=== PATIENT | male | born 1960 | race Caucasian/White ===

== ENCOUNTER 2020-08-25 08:36 | Outpatient (REF) | payer OTHER, SELFPAY ==
--- NOTE | 2020-08-25 08:45 | US_ITS ---
EXAMINATION: US SCROTUM CLINICAL INFORMATION: Left testicular pain. COMPARISON: Scrotal ultrasound 06/12/2019. TECHNIQUE: A sonogram of the scrotum was performed assessing deal-scale appearance and color Doppler flow. Spectral Doppler analysis of the arterial and venous flow were performed in the testes bilaterally. FINDINGS: RIGHT: Right testicle measures 2.8 x 2.6 x 3.4 cm, volume 17.7 mL. There is anechoic right testicular cyst measuring 0.4 x 0.5 x 0.4 cm. No additional cyst seen. No solid mass. A few scattered echogenic calcification seen in both testes. Spectral Doppler analysis of the arterial and venous flow is normal in the right testis. Right epididymal head is normal in size. There is anechoic epididymal cyst measuring 0.7 x 0.3 x 0.6 cm. No right hydrocele or varicocele is seen. Right epididymal Doppler flow is normal. LEFT: Left testicle measures 4.3 x 2.2 x 2.9 cm, volume 14.3 mL. There are a few scattered echogenic calcifications. No focal testicular parenchymal lesions are visualized. Spectral Doppler analysis of the arterial and venous flow is normal in the left testis. Left epididymal head is normal in size. No left hydrocele or varicocele is seen. Left epididymal Doppler flow is normal. US/US scrotum doppler IMPRESSION: A few scattered echogenic calcification both testes. There is right testicular and right epididymal cysts. The left testes and left epididymis appears normal. There is normal arterial and venous flow seen to both testes on Doppler ultrasound.
== END 2020-08-25 08:37 | disposition home or self-care (01) ==
LOC: HO.HMGCX 08:36
PROVIDERS: Visit Provider Surgery
DX: N50.812 Left testicular pain (principal)
CPT/HCPCS: 93975

== ENCOUNTER 2020-08-30 14:04 | Outpatient (REF) | payer OTHER, SELFPAY | END 2020-08-30 14:05 | disposition home or self-care (01) | LOC: HO.HMGCLDS 14:04 | PROVIDERS: PCP Nurse Practitioner Family; Visit Provider Urology | DX: N39.0 Urinary tract infection, site not specified (principal) | CPT/HCPCS: 87086 ==

== ENCOUNTER 2020-11-23 06:18 | Outpatient (REF) | payer OTHER, SELFPAY ==
[2020-11-23 11:23] LABS: MANUAL DIFF FLAG NO
[2020-11-23 11:29] LABS: Glucose Urine UA NEG (NEG); Leukocyte Esterase Urine NEG (NEG); Nitrite Urine NEG (NEG); Specific Gravity - Urine 1.025 (1.005-1.025); Urine Blood NEG (NEG); Urine Ketones NEG (NEG); Urine Protein NEG (NEG-TRACE)
[2020-11-23 11:30] LABS: Appearance Urine CLEAR; Color Urine YELLOW
[2020-11-23 11:34] LABS: Basophils Percent Auto 0.5 % (0-2); Eosinophils Absolute Auto 0.1 X10*3/uL (0.0-0.4); Hematocrit 46.3 % (42-52); Hemoglobin 15.8 g/dl (14.0-18.0); Imm Gran Abs Auto 0.02 X10*3/uL (0.00-0.03); Imm Gran Pct Auto 0.3 % (0.0-0.4); Lymphocytes Absolute Auto 2.3 X10*3/uL (1.2-4.9); Lymphocytes Percent Auto 39.1 % (20-40); Mean Corpuscular HGB Conc 34.1 g/dl (31.0-36.0); Mean Corpuscular Hemoglobin 33.3 pg (27.0-33.0); Mean Corpuscular Volume 97.7 fL (80-98); Mean Platelet Volume 9.1 fL (9.4-12.4); Monocytes Absolute Auto 0.6 X10*3/uL (0.1-1.2); Monocytes Percent Auto 10.7 % (2-11); Neutrophils Absolute Auto 2.9 X10*3/uL (2.0-8.3); Neutrophils Percent Auto 48.4 % (45-73); Platelet Count 295 X10*3/uL (160-400); Red Blood Count 4.74 X10*6/uL (4.60-5.80); Red Cell Distribution Width 12.6 % (11.0-16.0)
[2020-11-23 12:04] LABS: RBC Urine 0 /HPF (0); WBC Urine 0 /HPF (0-4)
[2020-11-23 12:17] LABS: Vitamin B12 316 pg/mL (200-900)
[2020-11-23 14:18] LABS: Alanine Aminotransferase 38 U/L (0-40); Albumin Level 4.3 g/dL (3.5-5.0); Alkaline Phosphatase 71 U/L (39-117); Anion Gap 13 (12-20); Aspartate Amino Transferase 20 U/L (5-37); Bilirubin Total 0.8 mg/dL (0.0-1.0); Blood Urea Nitrogen 22 mg/dL (9-16); Calcium 8.9 mg/dL (8.4-10.2); Carbon Dioxide 27 mmol/L (22-29); Chloride 105 mmol/L (96-108); Estimated Glomerular Filt Rate > 60; Glucose Fasting 113 mg/dL (60-99); Potassium 4.1 mmol/l (3.3-5.1); Sodium 141 mmol/L (135-145); Total Protein 6.3 g/dL (6.5-8.0)
[2020-11-23 14:38] LABS: Ferritin 873 ng/mL (20-250); Prostate Specific Antigen 0.76 ng/mL (<0.05-4.0); TSH reflex Free T4 2.54 mIU/mL (0.32-4.0)
[2020-11-24 08:54] LABS: SARS COV2 IgG Positive (Negative)
[2020-12-01 15:12] LABS: Testosterone, Free 91.8 pg/mL (35.0-155.0); Testosterone, Total 608 ng/dL (250-1100)
== END 2020-11-23 06:19 | disposition home or self-care (01) ==
LOC: HO.HMGCLDS 06:18
PROVIDERS: PCP Nurse Practitioner Family; Visit Provider Nurse Practitioner Family
DX: R53.83 Other fatigue (principal); R10.30 Lower abdominal pain, unspecified; K40.90 Unilateral inguinal hernia, without obstruction or gangrene, not specified as recurrent; N41.9 Inflammatory disease of prostate, unspecified; I10 Essential (primary) hypertension; E78.1 Pure hyperglyceridemia; Z20.822 Contact with and (suspected) exposure to COVID-19; Z91.030 Bee allergy status; Z88.2 Allergy status to sulfonamides; Z88.8 Allergy status to other drugs, medicaments and biological substances; Z91.018 Allergy to other foods; Z87.891 Personal history of nicotine dependence
CPT/HCPCS: 36415; 80053; 81001; 82607; 82728; 84153; 84402; 84403; 84443; 85025; 86769

== ENCOUNTER 2020-11-24 12:43 | Outpatient (REF) | payer OTHER, SELFPAY ==
--- NOTE | 2020-11-24 12:51 | XR_ITS ---
EXAMINATION: XR CHEST CLINICAL INFORMATION: R07.89 - Other chest pain COMPARISON: Chest radiographs 03/20/2017, 02/10/2015 TECHNIQUE: Frontal and lateral views of the chest are obtained. FINDINGS: There is linear scar versus disc atelectasis left base. Similar findings suggested chest radiographs 2014. Lungs otherwise clear. There is no pneumothorax, pleural reaction, airspace consolidation, or effusion. The heart is normal in size. The hilar and mediastinal contours and bony structures are unremarkable. XR/XR chest 2V IMPRESSION: Probable scar left base. No pneumothorax, infiltrate, or or pleural reaction.
--- NOTE | 2020-11-24 13:46 | US_ITS ---
EXAMINATION: US CHEST CLINICAL INFORMATION: Area of palpable concern noted by patient just inferior medial to axilla left chest. COMPARISON: Chest radiographs 11/24/2020, CT chest noncontrast 04/08/2018 TECHNIQUE: Linear ultrasound left chest soft tissues is targeted to the area of clinical concern inferior medial to left axilla. Grayscale imaging and color Doppler are performed. FINDINGS: There is no cystic or solid mass. There is no lymphadenopathy. No skin thickening or edema tracking in soft tissue planes. US/US chest IMPRESSION: 1. No mass, adenopathy, or inflammatory changes demonstrated by ultrasound. 2. If there is still clinical concern for palpable abnormality, further assessment may be considered with CT or MRI.
[2020-11-24 16:52] LABS: D Dimer < 200 NG/ML
[2020-11-25 13:02] LABS: Lyme Abs Screen <0.90 index
== END 2020-11-24 12:44 | disposition home or self-care (01) ==
LOC: HO.HMGCX 12:43
PROVIDERS: PCP Nurse Practitioner Family; Visit Provider Nurse Practitioner Family
DX: R07.89 Other chest pain (principal); R79.89 Other specified abnormal findings of blood chemistry; R22.2 Localized swelling, mass and lump, trunk
CPT/HCPCS: 36415; 71046; 76604; 81256; 85379; 86618

== ENCOUNTER 2020-11-29 11:04 | Outpatient (REF) | payer OTHER, SELFPAY ==
[2020-11-29 14:00] LABS: MANUAL DIFF FLAG NO
[2020-11-29 14:12] LABS: Basophils Percent Auto 0.5 % (0-2); Eosinophils Absolute Auto 0.1 X10*3/uL (0.0-0.4); Eosinophils Percent Auto 0.9 % (0-4); Hematocrit 47.9 % (42-52); Hemoglobin 16.2 g/dl (14.0-18.0); Imm Gran Abs Auto 0.01 X10*3/uL (0.00-0.03); Imm Gran Pct Auto 0.2 % (0.0-0.4); Lymphocytes Percent Auto 34.6 % (20-40); Mean Corpuscular HGB Conc 33.8 g/dl (31.0-36.0); Mean Corpuscular Hemoglobin 33.1 pg (27.0-33.0); Monocytes Absolute Auto 0.6 X10*3/uL (0.1-1.2); Neutrophils Absolute Auto 3.1 X10*3/uL (2.0-8.3); Neutrophils Percent Auto 53.8 % (45-73); Platelet Count 311 X10*3/uL (160-400); Red Blood Count 4.89 X10*6/uL (4.60-5.80); Red Cell Distribution Width 12.6 % (11.0-16.0); White Blood Count 5.7 X10*3/uL (4.8-10.8)
[2020-11-29 14:22] LABS: Iron 273 mcg/dL (45-160); Percent Iron Saturation 90 % (15-50); Total Iron Binding Capacity 303 mcg/dL (228-428); Unsaturated Iron Binding 30 ug/dL
[2020-11-29 14:45] LABS: Ferritin 1188 ng/mL (20-250)
== END 2020-11-29 11:05 | disposition home or self-care (01) ==
LOC: HO.HMGCLDS 11:04
PROVIDERS: PCP Nurse Practitioner Family; Referring Provider Internal Medicine; Visit Provider Nurse Practitioner Family
DX: R79.89 Other specified abnormal findings of blood chemistry (principal); Z20.822 Contact with and (suspected) exposure to COVID-19
CPT/HCPCS: 36415; 82728; 83540; 85025; U0003

== ENCOUNTER 2020-12-06 08:34 | Outpatient (REF) | payer OTHER, SELFPAY ==
--- NOTE | 2020-12-06 08:45 | US_ITS ---
EXAMINATION: US SCROTUM CLINICAL INFORMATION: Scrotal pain. COMPARISON: Ultrasound scrotum 08/25/2020 and 06/12/2019. TECHNIQUE: A sonogram of the scrotum was performed assessing deal-scale appearance and color Doppler flow. Spectral Doppler analysis of the arterial and venous flow were performed in the testes bilaterally. FINDINGS: RIGHT: Right testicle measures 4.3 x 2.5 x 3.2 cm, volume 18.0 mL. A simple cyst is incidentally noted in the upper testicle measuring 5 x 4 x 5 mm. No solid mass is seen. There are macrocalcifications incidentally noted. Spectral Doppler analysis of the arterial and venous flow is normal in the right testis. Right epididymal head is normal in size. A 4 x 7 x 7 mm right epididymal head cyst versus spermatocele is seen. No right varicocele is seen. Right epididymal Doppler flow is normal. There is a small right hydrocele. LEFT: Left testicle measures 4.7 x 2.3 x 3.3 cm, volume 18.7 mL. There are a few scattered microliths. Spectral Doppler analysis of the arterial and venous flow is normal in the left testis. Left epididymal head is normal in size. No left hydrocele or varicocele is seen. Left epididymal Doppler flow is normal. US/US scrotum IMPRESSION: 1. There is a small right hydrocele. 2. A small simple right testicular cyst is of incidental note. No testicular solid mass or torsion is seen bilaterally. 3. There is a 7 mm in maximal diameter right epididymal head cyst versus spermatocele.
== END 2020-12-06 08:35 | disposition home or self-care (01) ==
LOC: HO.HMGCX 08:34
PROVIDERS: PCP Nurse Practitioner Family; Visit Provider Surgery
DX: N50.82 Scrotal pain (principal)
CPT/HCPCS: 76870

== ENCOUNTER 2020-12-12 07:45 | Outpatient (REF) | payer OTHER, SELFPAY ==
--- NOTE | ~2020-12-12 | CT_ITS ---
EXAMINATION: CT ABDOMEN AND PELVIS WITHOUT CONTRAST CLINICAL INFORMATION: Unilateral inguinal hernia. COMPARISON: Previous CT of the abdomen and pelvis November 2019. TECHNIQUE: Axial images through the abdomen and pelvis without oral or IV contrast. Sagittal and coronal reconstructions on the technologist workstation were performed. Patient dose 532 mGy-cm. FINDINGS: The liver is slightly high in attenuation questionable for liver deposition disease, increased iron stores related to transfusion/hemosiderosis, hemachromatosis or copper deposition/[place] disease. There is a 5 mm low-attenuation lesion in the peripheral medial segment of the left lobe of the liver axial image 19 series 3. This is stable from previous contrast-enhanced exam and probably represents a cyst. The gallbladder is unremarkable. There is no biliary duct dilatation. The spleen is unremarkable. The pancreas is unremarkable. The adrenal glands are unremarkable. There is mild right hydronephrosis. The right ureter does not appear dilated. No stone is seen. There appears to be a crossing vessel, from a prehilar branching pattern of the right renal artery with the right lower renal artery. Appearance is suggestive of left UPJ obstruction. This is similar to previous exam. There are left renal cysts. The kidneys are otherwise unremarkable. The bladder does not appear distended. There is question of mild diffuse bladder wall thickening. The prostate gland is slightly enlarged measuring 3.6 x 4.3 cm in AP and transverse dimension. There is diverticulosis of the colon. Small and large bowel is otherwise unremarkable. The appendix is unremarkable. There is a left inguinal hernia containing fat and small amount of fluid. This is similar to November 2019 exam. There is evidence of mild atherosclerotic disease. There are degenerative changes of the spine and joints, left greater than right. CT/CT abdomen pelvis wo con IMPRESSION: Left inguinal hernia containing fat and fluid. This is similar to November 2019 exam. High attenuation liver questionable for deposition disease. Stable probable small liver cyst. 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 Stable small left renal cysts. Question mild diffuse bladder wall thickening. Slightly enlarged prostate gland. Diverticulosis of the colon. EXAMINATION: Chest CT with IV contras. CLINICAL INFORMATION: Chest pain. COMPARISON: Previous chest x-ray, most recent 11/24/2020 and chest ultrasound from the same day TECHNIQUE: Axial images through the chest following 65 mL Omnipaque 350 intravenous contrast. Sagittal and coronal reconstructions on the technologist workstation were performed. Patient dose 532 mGy-cm. FINDINGS: There is scarring or subsegmental atelectasis at the lung bases, left greater than right. The lungs are otherwise clear. The visualized thyroid gland is unremarkable. Vascular structures are unremarkable. The heart is upper normal in size. There is no pericardial effusion. The thoracic aorta is normal in caliber. There are no enlarged hilar or mediastinal lymph nodes. There is no pleural effusion or pleural thickening. There is a fatty lesion in the right infraspinatus muscle, probably representing a small lipoma. No other chest wall mass. No enlarged axillary lymph nodes are seen. There are degenerative changes of the spine and left shoulder. IMPRESSION: Small infraspinatus muscle lipoma. Otherwise unremarkable exam.
[2020-12-12] MEDS: iohexoL 350 MG/ML 100 ML INFUS..BTL IV (09:18)
== END 2020-12-12 07:46 | disposition home or self-care (01) ==
LOC: HO.CT 07:45
PROVIDERS: PCP Nurse Practitioner Family; Visit Provider Surgery
DX: R07.89 Other chest pain (principal); K40.90 Unilateral inguinal hernia, without obstruction or gangrene, not specified as recurrent
CPT/HCPCS: 71260; 74176; Q9967

== ENCOUNTER → 2020-12-14 14:47 | Outpatient (BNVA) | payer OTHER, SELFPAY | PROVIDERS: PCP Nurse Practitioner Family; Visit Provider Surgery ==

== ENCOUNTER 2020-12-29 14:22 | Outpatient (REF) | payer OTHER, SELFPAY ==
[2020-12-30 03:46] LABS: SARS COV2 IgG Positive (Negative)
== END 2020-12-29 14:23 | disposition home or self-care (01) ==
LOC: HO.HMGCLDS 14:22
PROVIDERS: PCP Nurse Practitioner Family; Visit Provider Nurse Practitioner Family
DX: M79.10 Myalgia, unspecified site (principal); R79.89 Other specified abnormal findings of blood chemistry; R53.83 Other fatigue; Z20.822 Contact with and (suspected) exposure to COVID-19
CPT/HCPCS: 36415; 86769; U0003; U0005

== ENCOUNTER → 2020-12-30 10:49 | Outpatient (BNV) | payer OTHER, SELFPAY | PROVIDERS: PCP Nurse Practitioner Family; Referring Provider Nurse Practitioner Family; Visit Provider Internal Medicine Medical Oncology | DX: R79.89 Other specified abnormal findings of blood chemistry (principal) | CPT/HCPCS: 99204; 99213; 99214 ==

== ENCOUNTER → 2021-01-06 08:45 | Outpatient (REF) | payer OTHER, SELFPAY ==
--- NOTE | 2021-01-06 08:49 | CA_ITS ---
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 The visually estimated ejection fraction is between 60-65%. - No obvious valvular pathology seen on this study. Findings Left Ventricle Normal left ventricular cavity size. There is moderately increased left ventricular wall thickness. The left ventricular systolic function is normal. The visually estimated ejection fraction is between 60-65%. There is no evidence of regional wall motion abnormalities. Evidence suggests grade I (mild) diastolic dysfunction. Right Ventricle Normal right ventricular cavity size and systolic function. Atria The left atrium is normal in size. The right atrium is normal in size. There is a prominent eustachian valve. (normal variant). Aortic Valve There is a normal trileaflet aortic valve. There is no aortic valve stenosis. There is no aortic valve regurgitation. Mitral Valve The mitral valve appears normal. There is trace mitral valve regurgitation. There is no mitral valve stenosis. Pulmonic Valve The pulmonic valve was not well visualized. Tricuspid Valve Normal tricuspid valve structure. There is mild tricuspid valve regurgitation. The pulmonary artery systolic pressure is normal. Great Vessels The aortic annulus, sinuses of valsalva, and asc aorta are normal in size. Venous The inferior vena cava is normal in size and collapses greater than 50% with inspiration. Pericardium/Pleural There is no evidence of pericardial effusion. Prior Study Comparison No prior study available for comparison. Recommendations, Care & Conclusions No obvious valvular pathology seen on this study. Measurements 2D Linear Measurements IVSd: 1.34 0.6-0.9/0.6-1.0 cm LVIDd: 4.18 3.9-5.3/4.2-5.9 cm LVIDd Index: 2.26 2.4-3.2/2.2-3.1 cm/m2 LVIDs: 2.68 2.0-3.6 cm LVPWd: 1.37 0.7-1.1 cm Ao Root: 3.40 2.1-3.5 cm LA Diam: 4.00 2.7-3.8/3.0-4.0 cm LAIDs Index: 2.16 1.5-2.3 cm/m2 LV Mass: 264.21 67-162/88-224 g LV Mass Index: 142.82 43-95/49-115 g/m2 LVOT Diam: 2.40 3.0+(-)1.3 cm 2D Systolic Function EF 4C: 65.50 >55% EF 2C: 67.70 >55% EF BiP: 64.90 >55% Mitral Valve MV Pk E: 0.61 MV PK A: 0.65 MV Decel Time: 218.00 E/A: 0.90 E'Lateral: 6.48 E'Medial: 5.22 E/E' Med: 11.60 E/E' Lat: 9.40 PHT: 64.00 MVA PHT: 3.44 Decel Sac: 2.78 Aortic Valve AoV Pk Ignacio: 1.28 AoV Mn Ignacio: 0.84 AoV VTI: 0.30 AoV Pk Grad: 7.00 Aov Mn Grad: 3.00 HUGO Cont.VTI: 3.40 LVOT LVOT Pk Ignacio: 0.96 LVOT Mn Ignacio: 0.71 LVOT VTI: 0.22 LVOT Pk Grad: 4.00 LVOT Mn Grad: 2.00 LVOT Diam: 2.40 LVOT Area: 4.52 Diastolic Function MV Pk E: 0.61 MV Pk A: 0.65 E/A: 0.90 E'Medial: 5.22 E/E' Med: 11.60 E' Laterial: 6.48 E/E' Lat: 9.40 Tricuspid Valve TR Pk Ignacio: 2.26 TR Pk Grad: 20.00 RA Press: 3.00 RVSP: 23.00 Great Vessels Aorta Ao Root-2D: 3.40 2.0-3.7 cm Ao Asc: 3.60 2.1-3.4 cm Pulmonary Valve PV Pk Ignacio: 1.28 Peak PV Grad: 7.00 Updated in Other Vendor System with Status of Final Sathya Dejesus MD electronically signed on 01/07/2021 1:38:20 PM with status of Final
== END ==
LOC: HO.CARD 08:45
PROVIDERS: PCP Nurse Practitioner Family; Visit Provider Surgery
DX: R07.89 Other chest pain (principal)
CPT/HCPCS: 93306

== ENCOUNTER → 2021-01-10 14:22 | Outpatient (BNVA) | payer OTHER, SELFPAY | PROVIDERS: PCP Nurse Practitioner Family; Visit Provider Nurse Practitioner ==

== ENCOUNTER 2021-01-17 08:54 | Outpatient (REF) | payer OTHER, SELFPAY | END 2021-01-17 08:55 | disposition home or self-care (01) | LOC: HO.BBR 08:54 | PROVIDERS: Visit Provider Internal Medicine Medical Oncology | DX: Z13.89 Encounter for screening for other disorder (principal) ==

== ENCOUNTER 2021-02-14 09:58 | Outpatient (REF) | payer OTHER, SELFPAY | END 2021-02-14 09:59 | disposition home or self-care (01) | LOC: HO.BBR 09:58 | PROVIDERS: Visit Provider Internal Medicine Medical Oncology | DX: Z13.89 Encounter for screening for other disorder (principal) ==

== ENCOUNTER 2021-02-24 10:20 | Outpatient (REF) | payer OTHER, SELFPAY | END 2021-02-24 10:21 | disposition home or self-care (01) | LOC: HO.BBR 10:20 | PROVIDERS: Visit Provider Internal Medicine Medical Oncology | DX: Z13.89 Encounter for screening for other disorder (principal) ==

== ENCOUNTER → 2021-03-17 11:24 | Outpatient (BNVA) | payer OTHER, SELFPAY | PROVIDERS: PCP Nurse Practitioner Family; Visit Provider Urology | DX: N50.812 Left testicular pain (principal); N41.9 Inflammatory disease of prostate, unspecified | CPT/HCPCS: 81002 ==

== ENCOUNTER 2021-03-28 10:27 | Outpatient (REF) | payer OTHER, SELFPAY | END 2021-03-28 10:28 | disposition home or self-care (01) | LOC: HO.BBR 10:27 | PROVIDERS: Visit Provider Internal Medicine Medical Oncology | DX: Z13.89 Encounter for screening for other disorder (principal) ==

== ENCOUNTER → 2021-04-06 09:32 | Outpatient (BNVA) | payer OTHER, SELFPAY | PROVIDERS: PCP Nurse Practitioner Family; Visit Provider Surgery | DX: K64.8 Other hemorrhoids (principal) | CPT/HCPCS: 46600 ==

== ENCOUNTER 2021-04-26 09:05 | Outpatient (REF) | payer OTHER, SELFPAY | END 2021-04-26 09:06 | disposition home or self-care (01) | LOC: HO.BBR 09:05 | PROVIDERS: Visit Provider Internal Medicine Medical Oncology | DX: Z13.89 Encounter for screening for other disorder (principal) ==

== ENCOUNTER → 2021-04-27 11:19 | Outpatient (BNVA) | payer OTHER, SELFPAY | PROVIDERS: PCP Nurse Practitioner Family; Visit Provider Urology ==

== ENCOUNTER 2021-05-01 08:18 | Outpatient (REF) | payer OTHER, SELFPAY ==
[2021-05-01 11:59] LABS: Alanine Aminotransferase 32 U/L (0-40); Albumin Level 4.3 g/dL (3.5-5.0); Alkaline Phosphatase 69 U/L (39-117); Anion Gap 8 (12-20); Aspartate Amino Transferase 20 U/L (5-37); Bilirubin Total 0.8 mg/dL (0.0-1.0); Blood Urea Nitrogen 16 mg/dL (9-16); Calcium 8.9 mg/dL (8.4-10.2); Carbon Dioxide 27 mmol/L (22-29); Chloride 108 mmol/L (96-108); Cholesterol 134 mg/dL; Estimated Glomerular Filt Rate > 60; Glucose Fasting 124 mg/dL (60-99); HDL Cholesterol 36 mg/dL; LDL Cholesterol Calculated 65 mg/dl; Potassium 3.8 mmol/L (3.3-5.1); Sodium 139 mmol/L (135-145); Total Protein 6.2 g/dL (6.5-8.0); Triglycerides 168 mg/dL
[2021-05-01 12:11] LABS: TSH reflex Free T4 1.12 uIU/mL (0.32-4.0)
[2021-05-01 12:43] LABS: Prostate Specific Antigen Scr 0.86 ng/mL (<0.05-4.0)
== END 2021-05-01 08:19 | disposition home or self-care (01) ==
LOC: HO.HMGCLDS 08:18
PROVIDERS: PCP Nurse Practitioner Family; Visit Provider Nurse Practitioner Family
DX: Z00.00 Encounter for general adult medical examination without abnormal findings (principal); Z12.5 Encounter for screening for malignant neoplasm of prostate
CPT/HCPCS: 36415; 80053; 80061; 84153; 84443

== ENCOUNTER 2021-06-01 15:28 | Outpatient (REF) | payer OTHER, SELFPAY | END 2021-06-01 15:29 | disposition home or self-care (01) | LOC: HO.BBR 15:28 | PROVIDERS: Visit Provider Internal Medicine Medical Oncology | DX: Z13.89 Encounter for screening for other disorder (principal) ==

== ENCOUNTER 2021-07-03 15:00 | Outpatient (REF) | payer OTHER, SELFPAY | END 2021-07-03 15:01 | disposition home or self-care (01) | LOC: HO.BBR 15:00 | PROVIDERS: PCP Nurse Practitioner Family; Visit Provider Internal Medicine Medical Oncology | DX: Z13.89 Encounter for screening for other disorder (principal) ==

== ENCOUNTER 2021-08-03 14:59 | Outpatient (REF) | payer OTHER, SELFPAY | END 2021-08-03 15:00 | disposition home or self-care (01) | LOC: HO.BBR 14:59 | PROVIDERS: PCP Nurse Practitioner Family; Visit Provider Internal Medicine Medical Oncology | DX: Z13.89 Encounter for screening for other disorder (principal) ==

== ENCOUNTER 2021-08-04 14:35 | Outpatient (REF) | payer OTHER, SELFPAY ==
--- NOTE | ~2021-08-04 | US_ITS ---
EXAMINATION: US ABDOMEN LIMITED CLINICAL INFORMATION: Unspecified abdominal pain. History of hernias and repairs. COMPARISON: CT abdomen and pelvis without contrast dated 12/12/2020 bilateral renal ultrasound dated 07/11/2011. TECHNIQUE: Real-time imaging of the right upper quadrant abdominal viscera. FINDINGS: Limited imaging through the abdominal wall superior to the umbilicus and to the left reveals no evidence of hernia, mass or mass effect. The soft tissues are normal. US/US abdomen limited IMPRESSION: Unremarkable Limited ultrasound abdominal wall superior and to left of the umbilicus.
== END 2021-08-04 14:36 | disposition home or self-care (01) ==
LOC: HO.HMGCX 14:35
PROVIDERS: PCP Nurse Practitioner Family; Visit Provider Nurse Practitioner Family
DX: R10.9 Unspecified abdominal pain (principal); Z87.19 Personal history of other diseases of the digestive system
CPT/HCPCS: 76705

== ENCOUNTER → 2021-08-17 08:45 | Outpatient (BNVA) | payer OTHER, SELFPAY | PROVIDERS: PCP Nurse Practitioner Family; Visit Provider Urology ==

== ENCOUNTER → 2021-08-30 15:18 | Outpatient (BNVA) | payer OTHER, SELFPAY | PROVIDERS: PCP Nurse Practitioner Family; Visit Provider Urology ==

== ENCOUNTER 2021-09-01 15:05 | Outpatient (REF) | payer OTHER, SELFPAY | END 2021-09-01 15:06 | disposition home or self-care (01) | LOC: HO.BBR 15:05 | PROVIDERS: Visit Provider Internal Medicine Medical Oncology | DX: Z13.89 Encounter for screening for other disorder (principal) ==

== ENCOUNTER 2021-09-27 10:02 | Outpatient (REF) | payer OTHER, SELFPAY | END 2021-09-27 10:03 | disposition home or self-care (01) | LOC: HO.BBR 10:02 | PROVIDERS: Visit Provider Internal Medicine Medical Oncology | DX: Z13.89 Encounter for screening for other disorder (principal) ==

== ENCOUNTER → 2021-10-05 13:44 | Outpatient (BNVA) | payer OTHER, SELFPAY | PROVIDERS: PCP Nurse Practitioner Family; Referring Provider Nurse Practitioner Family; Visit Provider Surgery ==

== ENCOUNTER 2021-10-18 08:57 | Day surgery (SDC) | payer OTHER, SELFPAY ==
[2021-10-11 15:55] VITALS: BMI 29.2
--- NOTE | 2021-10-17 09:07 | HO.ANESPROP2 ---
Documented by User: Catie Stacy NP 10/17/21 13:26 HPI - Anesthesia Eval Consult details Narrative: 61yo M for Left Excision of Neck Cyst and Perianal Lesion PMFSH Active Problems Active Problems: All Active Problems (Updated 10/11/21 @ 15:46 by Jodie Raphael, RN) Left testicular pain (Acute) Left inguinal hernia (Acute) Urinary tract infection (Acute) Prostatitis (Acute) Scrotal pain (Acute) Fatigue (Acute) Chest discomfort (Acute) Mass of chest wall (Acute) Chest discomfort (Acute) Elevated ferritin (Acute) Myalgia (Acute) Hemochromatosis (Acute) Recurrent left inguinal hernia (Acute) COVID-19 (Acute) Elevated ferritin level (Acute) IBS (irritable bowel syndrome) (Acute) GERD (gastroesophageal reflux disease) (Acute) Nausea and vomiting (Acute) Abdominal bloating (Acute) Left ankle pain (Acute) Folliculitis (Acute) Screening PSA (prostate specific antigen) (Acute) H/O left inguinal hernia repair (Acute) Abdominal pain (Acute) Prostatitis (Acute) Epidermal inclusion cyst (Acute) Benign neoplasm of perianal skin (Acute) BPH (benign prostatic hyperplasia) (Acute) Hemorrhoids with complication (Acute) Elevated ferritin level (Acute) Past Medical History Medical History (Updated 10/17/21 @ 13:24 by Catie Stacy NP) Anxiety Arm paresthesia, right Arthritis of left leg BPH (benign prostatic hyperplasia) Bursitis Elevated ferritin level Facet arthritis, degenerative, L5-S1 level, lumbosacral spine GERD (gastroesophageal reflux disease) Hemochromatosis Hemorrhoids with complication Hiatal hernia Hydronephrosis Hypertension Hypertriglyceridemia IBS (irritable bowel syndrome) Insomnia Left maxillary sinusitis Lymphadenitis Family History Family History Brother History of colon cancer Mother History of breast cancer Father History of lung cancer Paternal Uncle History of lung cancer Maternal Grandmother History of heart attack Other Mental health disorder Substance use disorder Surgical History Surgical History (Updated 10/11/21 @ 15:49 by Jodie Raphael, RN) H/O left inguinal hernia repair H/O left inguinal hernia repair H/O right knee surgery H/O umbilical hernia repair History of cystoscopy History of hand surgery Hx of colonoscopy Hx of hand surgery Hx of hernia repair Hx of knee surgery Lipoma of left thigh Patellar tendon rupture Social History Social History Housing: House Are you a primary home care liaison to a significant other at home: No Do you presently have visiting nurse or other home services: No Alcohol intake: current Alcohol intake frequency: a few times a month Patient Tobacco Use Status: Former Tobacco user Quit Date: 2016 Tobacco use type: Cigarette Use of substances other than those prescribed or required for medical reasons: Yes Substance Use Type: Marijuana Substance Use Type Other:: Edibles- Nightly Substance Use Frequency: Daily Have you been hit, kicked, punched, or otherwise hurt by someone within the past year? If so, by whom?: No Are you DNR?: No Advance Directives: No Advance Directives Information Provided: No Advance Directives on File: No Recently lost weight without trying: No Eating poorly because of decreased appetite: No Nutrition Risks: No Nutritional Risk Poor oral hygiene: No Current occupational status: employed Meds Allergies Allergy/AdvReac Type Severity Reaction Status Date / Time Sulfa (Sulfonamide Allergy Severe ANAPHYLAXIS Verified 10/18/21 09:11 Antibiotics) [SULFA (SULFONAMIDE ANTIBIOTICS)] bee pollen [BEE STINGS] Allergy Unknown UNKNOWN Verified 10/18/21 09:11 fenofibrate Allergy Unknown joint pain Verified 10/18/21 09:11 gabapentin [GABAPENTIN] Allergy Unknown RASH, Verified 10/18/21 09:11 HALLUCINATIONS, hallucinations Penicillins [PENICILLINS] Allergy Unknown ANAPHYLAXIS Verified 10/18/21 09:11 sesame oil [SESAME OIL] Allergy Unknown UNKNOWN Verified 10/18/21 09:11 (AND SESAME SEED) vancomycin [VANCOMYCIN] Allergy Unknown ITCHING Verified 10/18/21 09:11 AND REDNESS TO SKIN, itching Home Medications Medication Instructions Recorded Confirmed Last Taken Type epinephrine 0.3 mg/0.3 mL 0.3 ml IM DIRECTED 08/17/20 10/11/21 Unknown History injection, auto-injector Exam Exam Date and Time: October 17, 2021 0907 Height,Weight and Vital Signs: Height 5 ft 5 in Weight 79.832 kg Pertinent Lab Results Pertinent Lab Results: Laboratory Tests 05/19/21 05/19/21 12:33 12:33 WBC 5.1 Hgb 14.9 Hct 42.4 Plt Count 255 Sodium 143 Potassium 4.0 Chloride 111 H Carbon Dioxide 24 BUN 18 H Creatinine 0.85 Narrative Narrative: ECHO 03/2021 Conclusions: - The left ventricular systolic function is normal.? The visually estimated ejection fraction is between 60-65%. ? - No obvious valvular pathology seen on this study.? ? EKG 11/2020 NSR @ 72 Assessment and Plan Assessment Anesthesia Assessment: Chart Reviewed Documented by User: Brendan Rodriguez 10/18/21 09:44 HPI - Anesthesia Eval Consult details Narrative: 61yo M for Left Excision of Neck Cyst and Perianal Lesion post nasal drip since 2 months has to clear his throat , gets better through the day . Afebrile . [facility] Past Medical History Medical History (Updated 10/17/21 @ 13:24 by Catie Stacy NP) Anxiety Arm paresthesia, right Arthritis of left leg BPH (benign prostatic hyperplasia) Bursitis Elevated ferritin level Facet arthritis, degenerative, L5-S1 level, lumbosacral spine GERD (gastroesophageal reflux disease) Hemochromatosis Hemorrhoids with complication Hiatal hernia Hydronephrosis Hypertension Hypertriglyceridemia IBS (irritable bowel syndrome) Insomnia Left maxillary sinusitis Lymphadenitis Family History Family History Brother History of colon cancer Mother History of breast cancer Father History of lung cancer Paternal Uncle History of lung cancer Maternal Grandmother History of heart attack Other Mental health disorder Substance use disorder Surgical History Surgical History (Updated 10/11/21 @ 15:49 by Jodie Raphael RN) H/O left inguinal hernia repair H/O left inguinal hernia repair H/O right knee surgery H/O umbilical hernia repair History of cystoscopy History of hand surgery Hx of colonoscopy Hx of hand surgery Hx of hernia repair Hx of knee surgery Lipoma of left thigh Patellar tendon rupture History of Problems with Anesthesia: No Social History Social History Housing: House Are you a primary home care liaison to a significant other at home: No Do you presently have visiting nurse or other home services: No Alcohol intake: current Alcohol intake frequency: a few times a month Patient Tobacco Use Status: Former Tobacco user Quit Date: 2016 Tobacco use type: Cigarette Use of substances other than those prescribed or required for medical reasons: Yes Substance Use Type: Marijuana Substance Use Type Other:: Edibles- Nightly Substance Use Frequency: Daily Have you been hit, kicked, punched, or otherwise hurt by someone within the past year? If so, by whom?: No Are you DNR?: No Advance Directives: No Advance Directives Information Provided: No Advance Directives on File: No Recently lost weight without trying: No Eating poorly because of decreased appetite: No Nutrition Risks: No Nutritional Risk Poor oral hygiene: No Current occupational status: employed Meds Allergies Allergy/AdvReac Type Severity Reaction Status Date / Time Sulfa (Sulfonamide Allergy Severe ANAPHYLAXIS Verified 10/18/21 09:11 Antibiotics) [SULFA (SULFONAMIDE ANTIBIOTICS)] bee pollen [BEE STINGS] Allergy Unknown UNKNOWN Verified 10/18/21 09:11 fenofibrate Allergy Unknown joint pain Verified 10/18/21 09:11 gabapentin [GABAPENTIN] Allergy Unknown RASH, Verified 10/18/21 09:11 HALLUCINATIONS, hallucinations Penicillins [PENICILLINS] Allergy Unknown ANAPHYLAXIS Verified 10/18/21 09:11 sesame oil [SESAME OIL] Allergy Unknown UNKNOWN Verified 10/18/21 09:11 (AND SESAME SEED) vancomycin [VANCOMYCIN] Allergy Unknown ITCHING Verified 10/18/21 09:11 AND REDNESS TO SKIN, itching Home Medications Medication Instructions Recorded Confirmed Last Taken Type epinephrine 0.3 mg/0.3 mL 0.3 ml IM DIRECTED 08/17/20 10/11/21 Unknown History injection, auto-injector Exam Airway Mallampati Class: III TM Dist: >3cm Neck ROM: Full Loose/Missing/Broken Teeth: Yes Heart: rrr Lungs: bl breath sounds Assessment and Plan Final Anesthetic Review History of Problems with Anesthesia: No NPO: Yes ASA Class: III Final Preanesthetic Review: Meds/Allgs Chart Reviewed Patient Risk: Intermediate Procedure Risk: Intermediate Anesthetic Plan Anesthetic Plan: GA Disposition: Standard PACU
[2021-10-18] VITALS (9 sets, daily range): BP systolic 129–167; BP diastolic 86–118; PULSE 56–70; RESP 12–16; TEMP 36.2–36.9; O2SAT 93–100
[2021-10-18] MEDS: Lactated Ringers 1,000 ML 100 ML IVCONT (09:45)
--- NOTE | 2021-10-18 10:10 | MHC.SHP ---
Pre-Procedural Eval Section A Date of Service: 10/18/21 The patient is an INPATIENT: No Changes since office visit: Yes Patient answered all questions; No Cold of Flu in the past 2 weeks, No New Medical Problems and No Changes in Medication The History & Physical has been completed within 30 days and I have reviewed it.: Yes Section B Chief Complaint: Epidermal inclusion cyst, Benign neoplasm Allergies: Allergies Allergy/AdvReac Type Severity Reaction Status Date / Time Sulfa (Sulfonamide Allergy Severe ANAPHYLAXIS Verified 10/18/21 09:11 Antibiotics) [SULFA (SULFONAMIDE ANTIBIOTICS)] bee pollen [BEE STINGS] Allergy Unknown UNKNOWN Verified 10/18/21 09:11 fenofibrate Allergy Unknown joint pain Verified 10/18/21 09:11 gabapentin [GABAPENTIN] Allergy Unknown RASH, Verified 10/18/21 09:11 HALLUCINATIONS, hallucinations Penicillins [PENICILLINS] Allergy Unknown ANAPHYLAXIS Verified 10/18/21 09:11 sesame oil [SESAME OIL] Allergy Unknown UNKNOWN Verified 10/18/21 09:11 (AND SESAME SEED) vancomycin [VANCOMYCIN] Allergy Unknown ITCHING Verified 10/18/21 09:11 AND REDNESS TO SKIN, itching Plan Diagnosis/Plan: Unchanged I have reviewed the history and physical and performed a pertinent physical examination on my patient. No changes have occurred unless specified.
--- NOTE | 2021-10-18 11:27 | P.OP_ITS ---
Operative Note Operative Note Date of Service: 10/18/21 Narrative: Preoperative diagnosis: Left posterior neck cyst, perianal skin lesions Postoperative diagnosis:Left posterior neck lipoma, perianal skin lesions x 2 Procedure:Excision of lipoma posterior left neck Surgeon: Ananth Olmedo MD Auto Transmission Technician: Inge Hickman PA-C Anesthesia: general Indications for procedure:61-year-old male patient presenting with a soft tissue mass located in the posterior neck which is increasing in size and causing some discomfort. The patient has requested excision. He also has several skin lesions located in the perianal skin which he finds irritating would like removed. Operative findings: Soft tissue mass located in the posterior neck is consistent with a lipoma multiple lobules measuring approximately 2 cm in diameter. Two skin lesions were identified in the perianal skin 1 measuring approximately 1 cm by 1 cm with a base of 0.5 cm. The 2nd lesion measured approximately 0.5 cm in diameter. Both were excised with scalpel sent to pathology for further examination. Specimen: Lipoma posterior left neck, perianal skin lesion x2 Estimated blood loss: 2 mL Complications: none Procedure details: patient was brought to the OR placed in a supine position. After administering general anesthesia he was placed in a prone position. a surgical time-out was called the consent confirmed. Patient received preoperative antibiotics and Venodyne boots were in place. The patient's neck and perianal skin were prepped with Betadine and draped in a sterile fashion. Local anesthesia consisting of 0.5% Sensorcaine was infiltrated in the neck in a transverse fashion. Incision was then made with a scalpel transversely over the lump. This carried out through subcutaneous tissue using electrocautery. The lesion was identified brought up through the wound. Gentle blunt dissection was then used to free up the lesion from the surrounding subcutaneous tissue. Examination of the lesion indicated a multilobulated lipoma. This was removed completely and sent to pathology for further examination. After assuring adequate hemostasis the skin was closed using interrupted 4-0 nylon sutures. Attention was then directed to the perianal skin. Two raised lesions were identified in the perianal skin without pigmentation or ulceration. Skin was anesthetized with the Sensorcaine. The scalp was then used to excise both lesions down to the base lesions were sent to pathology further. Skin was then closed using interrupted 4-0 Polysorb sutures. Sterile dressings were then applied. The patient total for the procedure well. Sponge, instrument, and needle counts reported as correct. The patient was transported To PACU in stable condition.
[2021-10-18] MEDS: oxyCODONE HCl Immed Release 5 MG TABLET PO (12:25)
== END 2021-10-18 13:35 | disposition home or self-care (01) ==
PROVIDERS: PCP Nurse Practitioner Family; Visit Provider Surgery
PROC: (CPT 11423; principal; 2021-10-18 10:50)
DX: D17.0 Benign lipomatous neoplasm of skin and subcutaneous tissue of head, face and neck (principal); K64.4 Residual hemorrhoidal skin tags; K62.89 Other specified diseases of anus and rectum; K58.9 Irritable bowel syndrome, unspecified; I10 Essential (primary) hypertension; Z79.899 Other long term (current) drug therapy; Z88.0 Allergy status to penicillin; Z88.2 Allergy status to sulfonamides
CPT/HCPCS: 11423; 46230; 88304; J1100; J1956; J2250; J2405; J3010

== ENCOUNTER 2021-10-26 11:05 | Outpatient (REF) | payer OTHER, SELFPAY | END 2021-10-26 11:06 | disposition home or self-care (01) | LOC: HO.BBR 11:05 | PROVIDERS: Visit Provider Internal Medicine Medical Oncology | DX: Z13.89 Encounter for screening for other disorder (principal) ==

== ENCOUNTER 2021-10-27 09:13 | Outpatient (REF) | payer OTHER, SELFPAY ==
[2021-10-27 13:02] LABS: Alanine Aminotransferase 41 U/L (0-40); Albumin Level 4.2 g/dL (3.5-5.0); Alkaline Phosphatase 65 U/L (39-117); Anion Gap 12 (12-20); Aspartate Amino Transferase 20 U/L (5-37); Bilirubin Total 1.1 mg/dL (0.0-1.0); Blood Urea Nitrogen 21 mg/dL (9-16); Calcium 9.3 mg/dL (8.4-10.2); Carbon Dioxide 25 mmol/L (22-29); Chloride 109 mmol/L (96-108); Cholesterol 146 mg/dL; Estimated Glomerular Filt Rate > 60; Glucose Random 152 mg/dL (60-115); HDL Cholesterol 30 mg/dL; LDL Cholesterol Calculated 66 mg/dl; Potassium 3.9 mmol/L (3.3-5.1); Sodium 142 mmol/L (135-145); Total Protein 6.2 g/dL (6.5-8.0); Triglycerides 253 mg/dL
[2021-10-27 13:25] LABS: Prostate Specific Antigen 0.67 ng/mL (<0.05-4.0)
[2021-10-27 13:28] LABS: TSH reflex Free T4 1.72 uIU/mL (0.32-4.0)
== END 2021-10-27 09:14 | disposition home or self-care (01) ==
LOC: HO.HMGCLDS 09:13
PROVIDERS: Urology; PCP Nurse Practitioner Family; Visit Provider Nurse Practitioner Family
DX: Z12.5 Encounter for screening for malignant neoplasm of prostate (principal); N41.9 Inflammatory disease of prostate, unspecified; E78.5 Hyperlipidemia, unspecified
CPT/HCPCS: 36415; 80053; 80061; 84153; 84443

== ENCOUNTER 2021-10-30 12:29 | Outpatient (REF) | payer OTHER, SELFPAY | END 2021-10-30 12:30 | disposition home or self-care (01) | LOC: HO.HMGCLDS 12:29 | PROVIDERS: Visit Provider Internal Medicine | DX: Z20.822 Contact with and (suspected) exposure to COVID-19 (principal) | CPT/HCPCS: C9803; U0003; U0005 ==

== ENCOUNTER 2021-11-02 14:42 | Outpatient (REF) | payer OTHER, SELFPAY ==
[2021-11-02 16:27] LABS: Binax Internal Control QC Valid; Binax Lot number: 9864; Binax Now Covid-19 Ag Negative (Negative)
== END 2021-11-02 14:43 | disposition home or self-care (01) ==
LOC: HO.LAB 14:42
PROVIDERS: Visit Provider Internal Medicine
DX: Z20.822 Contact with and (suspected) exposure to COVID-19 (principal)
CPT/HCPCS: 36415; C9803

== ENCOUNTER 2021-12-01 08:10 | Outpatient (REF) | payer OTHER, SELFPAY ==
[2021-12-01 08:25] LABS: MANUAL DIFF FLAG NO
[2021-12-01 08:28] LABS: Basophils Percent Auto 0.6 % (0-2); Eosinophils Absolute Auto 0.1 X10*3/uL (0.0-0.4); Eosinophils Percent Auto 1.3 % (0-4); Hematocrit 42.7 % (42.0-52.0); Imm Gran Abs Auto 0.01 X10*3/uL (0.00-0.03); Imm Gran Pct Auto 0.2 % (0.0-0.4); Lymphocytes Absolute Auto 1.7 X10*3/uL (1.2-4.9); Lymphocytes Percent Auto 32.9 % (20-40); Mean Corpuscular HGB Conc 35.1 g/dl (31.0-36.0); Mean Corpuscular Hemoglobin 33.9 pg (27.0-33.0); Mean Corpuscular Volume 96.6 fL (80.0-98.0); Mean Platelet Volume 8.7 fL (9.4-12.4); Monocytes Absolute Auto 0.5 X10*3/uL (0.1-1.2); Monocytes Percent Auto 9.9 % (2-11); Neutrophils Absolute Auto 2.9 x10*3/uL (2.0-8.3); Neutrophils Percent Auto 55.1 % (45-73); Platelet Count 268 X10*3/uL (160-400); Red Blood Count 4.42 X10*6/uL (4.60-5.80); Red Cell Distribution Width 12.9 % (11.0-16.0); White Blood Count 5.2 X10*3/uL (4.8-10.8)
[2021-12-01 08:49] LABS: Alanine Aminotransferase 29 U/L (0-40); Albumin Level 3.9 g/dL (3.5-5.0); Alkaline Phosphatase 79 U/L (39-117); Anion Gap 12 (12-20); Aspartate Amino Transferase 19 U/L (5-37); Bilirubin Total 0.8 mg/dL (0.0-1.0); Blood Urea Nitrogen 13 mg/dL (9-16); Calcium 9.2 mg/dL (8.4-10.2); Carbon Dioxide 26 mmol/L (22-29); Chloride 107 mmol/L (96-108); Estimated Glomerular Filt Rate > 60; Glucose Random 234 mg/dL (60-115); Iron 189 mcg/dL (45-160); Percent Iron Saturation 71 % (15-50); Potassium 3.7 mmol/L (3.3-5.1); Sodium 141 mmol/L (135-145); Total Iron Binding Capacity 267 mcg/dL (228-428); Unsaturated Iron Binding 78 ug/dL
[2021-12-01 09:09] LABS: Ferritin 626 ng/mL (20-250)
== END 2021-12-01 08:11 | disposition home or self-care (01) ==
LOC: HO.BBR 08:10
PROVIDERS: Visit Provider Internal Medicine Medical Oncology
DX: E83.110 Hereditary hemochromatosis (principal)
CPT/HCPCS: 36415; 80053; 82728; 83540; 85025

== ENCOUNTER 2022-02-02 14:03 | Outpatient (REF) | payer OTHER, SELFPAY ==
[2022-02-02 14:22] LABS: Hematocrit 45.4 % (42.0-52.0); Hemoglobin 16.4 g/dl (14.0-18.0)
[2022-02-02 15:07] LABS: Ferritin 424 ng/mL (20-250)
== END 2022-02-02 14:04 | disposition home or self-care (01) ==
LOC: HO.BBR 14:03
PROVIDERS: Visit Provider Internal Medicine Medical Oncology
DX: E83.110 Hereditary hemochromatosis (principal)
CPT/HCPCS: 36415; 82728; 85014; 85018

== ENCOUNTER 2022-02-08 11:32 | Outpatient (REF) | payer OTHER, SELFPAY ==
[2022-02-08 12:03] LABS: COVID-19 Test Negative (Negative); IDNOW Serial# 16C4AD1C
== END 2022-02-08 11:33 | disposition home or self-care (01) ==
LOC: HO.LAB 11:32
PROVIDERS: Visit Provider Internal Medicine
DX: Z20.822 Contact with and (suspected) exposure to COVID-19 (principal)
CPT/HCPCS: 87635; C9803

== ENCOUNTER 2022-02-27 09:21 | Outpatient (REF) | payer OTHER, SELFPAY ==
[2022-02-27 11:40] LABS: MANUAL DIFF FLAG NO
[2022-02-27 11:51] LABS: Basophils Percent Auto 0.6 % (0-2); Eosinophils Absolute Auto 0.1 X10*3/uL (0.0-0.4); Eosinophils Percent Auto 1.1 % (0-4); Hematocrit 44.9 % (42.0-52.0); Hemoglobin 15.7 g/dl (14.0-18.0); Imm Gran Abs Auto 0.02 X10*3/uL (0.00-0.03); Imm Gran Pct Auto 0.4 % (0.0-0.4); Lymphocytes Absolute Auto 1.9 X10*3/uL (1.2-4.9); Lymphocytes Percent Auto 35.2 % (20-40); Mean Corpuscular Hemoglobin 33.7 pg (27.0-33.0); Mean Corpuscular Volume 96.4 fL (80.0-98.0); Mean Platelet Volume 9.1 fL (9.4-12.4); Monocytes Absolute Auto 0.6 X10*3/uL (0.1-1.2); Monocytes Percent Auto 10.5 % (2-11); Neutrophils Absolute Auto 2.8 x10*3/uL (2.0-8.3); Neutrophils Percent Auto 52.2 % (45-73); Platelet Count 287 X10*3/uL (160-400); Red Blood Count 4.66 X10*6/uL (4.60-5.80); Red Cell Distribution Width 12.5 % (11.0-16.0); White Blood Count 5.4 X10*3/uL (4.8-10.8)
[2022-02-27 12:04] LABS: Alanine Aminotransferase 32 U/L (0-40); Albumin Level 4.2 g/dL (3.5-5.0); Alkaline Phosphatase 66 U/L (39-117); Anion Gap 10 (12-20); Aspartate Amino Transferase 19 U/L (5-37); Bilirubin Total 0.9 mg/dL (0.0-1.0); Blood Urea Nitrogen 11 mg/dL (9-16); Calcium 8.6 mg/dL (8.4-10.2); Carbon Dioxide 27 mmol/L (22-29); Chloride 108 mmol/L (96-108); Estimated Glomerular Filt Rate > 60; Glucose Random 143 mg/dL (60-115); Potassium 4.2 mmol/L (3.3-5.1); Sodium 141 mmol/L (135-145); Total Protein 6.4 g/dL (6.5-8.0)
[2022-02-27 12:27] LABS: TSH reflex Free T4 1.43 uIU/mL (0.32-4.0)
[2022-02-27 13:00] LABS: D Dimer High Sensitivity < 150 NG/ML
== END 2022-02-27 09:22 | disposition home or self-care (01) ==
LOC: HO.HMGCLDS 09:21
PROVIDERS: Visit Provider Nurse Practitioner Family
DX: R07.89 Other chest pain (principal)
CPT/HCPCS: 36415; 80053; 84443; 85025; 85379

== ENCOUNTER 2022-03-16 13:52 | Outpatient (REF) | payer OTHER, SELFPAY ==
[2022-03-16 14:08] LABS: Hematocrit 41.6 % (42.0-52.0); Hemoglobin 15.4 g/dl (14.0-18.0)
[2022-03-16 14:44] LABS: Ferritin 401 ng/mL (20-250)
== END 2022-03-16 13:53 | disposition home or self-care (01) ==
LOC: HO.BBR 13:52
PROVIDERS: Visit Provider Internal Medicine Medical Oncology
DX: E83.110 Hereditary hemochromatosis (principal)
CPT/HCPCS: 36415; 82728; 85014; 85018

== ENCOUNTER → 2022-04-06 07:34 | Outpatient (REF) | payer OTHER, SELFPAY ==
--- NOTE | 2022-04-06 07:36 | CA_ITS ---
Transthoracic Echocardiogram Patient (Last, First, Middle): Wyatt Estrada J Gender: Male Date of : 1960 Age: 61 Procedure Date: 04/06/2022 Procedure Type: Transthoracic Echocardiogram Location: OP Height: 162.56 cm Weight: 79.83 kg BSA: 1.85 m2 Heart Rate: bpm BP: 118 / 74 mmHg Head Usher: SB Referring MD: Ananth Chan [facility]- It Data Architect: Juan Negro MD Symptoms: R07.89 - Other chest pain Study Quality: Fair ECG Rhythm: Sinus Bradycardia Conclusions: - Essentially normal study Findings Left Ventricle Normal left ventricular size, thickness, and systolic function. The visually estimated ejection fraction is between 55-60%. Spectral Doppler is indicative of a normal filling pattern. Peak GLS is -18.4%, within normal limits Right Ventricle Normal right ventricular cavity size and systolic function. Atria Both atria are normal in size. There is no evidence of interatrial shunt. Aortic Valve Normal aortic valve structure and function. There is no aortic valve stenosis. There is no aortic valve regurgitation. Mitral Valve Normal mitral valve structure and function. There is trace mitral valve regurgitation. There is no mitral valve stenosis. Pulmonic Valve The pulmonic valve was not well visualized. Tricuspid Valve Likely normal tricuspid valve structure and function. There is trace tricuspid valve regurgitation. The right ventricular systolic pressure is normal. The right ventricular systolic pressure is 20 mmHg. Normal right atrial pressure. There is no evidence of pulmonary hypertension. Great Vessels All visible segments of the aorta are normal in size. The pulmonary artery was not well visualized. Venous The inferior vena cava is normal in size and collapses greater than 50% with inspiration. Pericardium/Pleural There is no evidence of pericardial effusion. Measurements 2D Linear Measurements IVSd: 1.06 0.6-0.9/0.6-1.0 cm LVIDd: 5.05 3.9-5.3/4.2-5.9 cm LVIDd Index: 2.73 2.4-3.2/2.2-3.1 cm/m2 LVIDs: 3.25 2.0-3.6 cm LVPWd: 0.98 0.7-1.1 cm Ao Root: 3.40 2.1-3.5 cm LA Diam: 4.20 2.7-3.8/3.0-4.0 cm LAIDs Index: 2.27 1.5-2.3 cm/m2 LV Mass: 235.93 67-162/88-224 g LV Mass Index: 127.53 43-95/49-115 g/m2 LVOT Diam: 2.40 3.0+(-)1.3 cm 2D Systolic Function EF 4C: 48.10 >55% EF 2C: 63.10 >55% Mitral Valve MV Pk E: 0.61 MV PK A: 0.66 MV Decel Time: 196.00 E/A: 0.90 E'Lateral: 5.00 E'Medial: 5.77 E/E' Med: 10.60 E/E' Lat: 12.30 PHT: 57.00 MVA PHT: 3.86 Decel [place]: 3.13 Aortic Valve AoV Pk Ignacio: 1.20 AoV Mn Ignacio: 0.84 AoV VTI: 0.26 AoV Pk Grad: 6.00 Aov Mn Grad: 4.00 HUGO Cont.VTI: 3.98 LVOT LVOT Pk Ignacio: 1.04 LVOT Mn Ignacio: 0.69 LVOT VTI: 0.23 LVOT Pk Grad: 4.00 LVOT Mn Grad: 2.00 LVOT Diam: 2.40 LVOT Area: 4.52 Diastolic Function MV Pk E: 0.61 MV Pk A: 0.66 E/A: 0.90 E'Medial: 5.77 E/E' Med: 10.60 E' Laterial: 5.00 E/E' Lat: 12.30 Right Ventricle TAPSE (mm): 18.00 TVS' Ignacio: 10.10 Tricuspid Valve TR Pk Ignacio: 2.06 TR Pk Grad: 17.00 RA Press: 3.00 RVSP: 20.00 Great Vessels Aorta Ao Root-2D: 3.40 2.0-3.7 cm Sinus of Valsalva: 3.40 2.0-3.5 cm Ao Asc: 3.50 2.1-3.4 cm Pulmonary Veins Pulm Vein S/D 0.80 Pulmonary Valve PV Pk Ignacio: 1.12 Peak PV Grad: 5.00 Updated in Other Vendor System with Status of Final Juan Negro MD electronically signed on 04/07/2022 8:52:44 AM with status of Final
== END ==
LOC: HO.CARD 07:34
PROVIDERS: PCP Nurse Practitioner Family; Visit Provider Nurse Practitioner Family
DX: R07.89 Other chest pain (principal); R94.31 Abnormal electrocardiogram [ECG] [EKG]
CPT/HCPCS: 93306; 93356

== ENCOUNTER → 2022-04-10 11:37 | Outpatient (BNVA) | payer OTHER, SELFPAY | PROVIDERS: PCP Nurse Practitioner Family; Referring Provider Nurse Practitioner Family; Visit Provider Internal Medicine | DX: R07.89 Other chest pain (principal); R94.31 Abnormal electrocardiogram [ECG] [EKG]; I10 Essential (primary) hypertension; E78.5 Hyperlipidemia, unspecified ==

== ENCOUNTER 2022-04-13 16:06 | Outpatient (REF) | payer OTHER, SELFPAY ==
[2022-04-13 17:37] LABS: Appearance Urine CLEAR; Color Urine YELLOW; Glucose Urine UA NEG (NEG); Leukocyte Esterase Urine NEG (NEG); Nitrite Urine NEG (NEG); PH 6.5 (5.0-8.0); Urine Blood NEG (NEG); Urine Ketones NEG (NEG); Urine Protein NEG (NEG-TRACE)
[2022-04-13 17:51] LABS: Amorphous Sediment Urine 4+ /LPF; RBC Urine 0-2 /HPF (0); Squamous Epithelial Cell Urine TRACE /LPF; WBC Urine 0 /HPF (0-4)
[2022-04-18 19:56] LABS: PSA, Ultra Sensitive 0.47 ng/mL
== END 2022-04-13 16:07 | disposition home or self-care (01) ==
LOC: HO.LAB 16:06
PROVIDERS: PCP Nurse Practitioner Family; Visit Provider Nurse Practitioner Family
DX: N41.9 Inflammatory disease of prostate, unspecified (principal); Z12.5 Encounter for screening for malignant neoplasm of prostate
CPT/HCPCS: 36415; 81001; 84153; 87086

== ENCOUNTER → 2022-04-30 08:48 | Outpatient (REF) | payer OTHER, SELFPAY ==
--- NOTE | ~2022-04-30 | NM_ITS ---
Exercise Myocardial perfusion study Indication: Chest pain to evaluate for myocardial ischemia Technique: The patient was brought in for an exercise perfusion study on 04/30/2022. Patient performed exercise as per Shankar protocol and was injected 25 mCi of sestamibi was given intravenously one target HR was achieved. Images were obtained using the SPECT gamma camera interlaced with the gating device. Images were obtained in supine position. Resting perfusion study was performed on 05/01/2022. Patient was administered 25 mCi of sestamibi intravenously at rest. Images were then obtained in supine position. Images obtained with and without CT attenuation. Total DLP 95 mGy-cm. Images were processed with the software and compared side to side in short axis, horizontal long axis and vertical long axis views. Findings: The stress perfusion study showed non attenuated images show mildly reduced uptake in the basal inferior wall of the LV myocardium. Remainder of the LV myocardium is normally perfused. Attenuated corrected images show normal uptake of radiotracer in all segments of LV myocardium. The gated study shows normal LV systolic function with visually estimated LVEF of greater than 60%. LV cavity is normal in size. The gated study shows normal systolic wall thickening and contraction of all segments. There is no transient ischemic dilation. Resting study shows no change in perfusion pattern compared to gated study. Gating at rest reveals normal systolic wall motion with ejection fraction at 60%. The findings are consistent with normal myocardial perfusion. NM/NM cardiolite stress test Impression: 1. Normal myocardial perfusion 2. Gated LVEF is 60% 3. Transient ischemic dilatation not present Stress EKG is negative for ischemia
--- NOTE | 2022-04-30 08:51 | CA_ITS ---
Acquisition Time: 2022-04-30 09:30:52 Total Exercise Time: 00:08:36 Test Indications: Abnormal ECG Medications: AMLODIPINE ATORVASTATIN BUSPIRONE FINASTERIDE MABUMETONE Protocol: LAURA Max HR: 139 BPM 86% of Pred: 161 BPM Max BP: 148/092 mmHG Max Work Load: 10.4 METS Exercise stress test test with exercise 8 min 36 sec of Laura protocol, achieving 86% MPHR, with mild sob, no chest discomfort, with isolated PVC, with normotensive response to exercise, without EKG changes meeting criteria for ischemia. Nuclear images pending. Test reviewed with Dr Dejesus Referred By: Ananth Chan Overread By: SERENITY GODWIN
== END ==
LOC: HO.CARD 08:48
PROVIDERS: Absent Provider Internal Medicine; PCP Nurse Practitioner Family; Visit Provider Nurse Practitioner Family
DX: R07.89 Other chest pain (principal); R94.31 Abnormal electrocardiogram [ECG] [EKG]
CPT/HCPCS: 78452; 93017; A9500

== ENCOUNTER 2022-05-03 14:00 | Outpatient (REF) | payer OTHER, SELFPAY ==
[2022-05-03 14:16] LABS: Hematocrit 43.6 % (42.0-52.0); Hemoglobin 15.6 g/dl (14.0-18.0)
[2022-05-03 15:10] LABS: Ferritin 368 ng/mL (20-250)
== END 2022-05-03 14:01 | disposition home or self-care (01) ==
LOC: HO.BBR 14:00
PROVIDERS: Visit Provider Internal Medicine Medical Oncology
DX: E83.110 Hereditary hemochromatosis (principal)
CPT/HCPCS: 36415; 82728; 85014; 85018

== ENCOUNTER 2022-06-14 14:08 | Outpatient (REF) | payer OTHER, SELFPAY ==
[2022-06-14 14:26] LABS: Hematocrit 44.5 % (42.0-52.0); Hemoglobin 16.4 g/dl (14.0-18.0)
[2022-06-14 15:02] LABS: Ferritin 354 ng/mL (20-250)
== END 2022-06-14 14:09 | disposition home or self-care (01) ==
LOC: HO.BBR 14:08
PROVIDERS: Visit Provider Internal Medicine Medical Oncology
DX: E83.110 Hereditary hemochromatosis (principal)
CPT/HCPCS: 36415; 82728; 85014; 85018

== ENCOUNTER 2022-07-26 14:06 | Outpatient (REF) | payer OTHER, SELFPAY ==
[2022-07-26 14:19] LABS: Hematocrit 45.1 % (42.0-52.0); Hemoglobin 16.4 g/dl (14.0-18.0)
[2022-07-26 15:10] LABS: Ferritin 283 ng/mL (20-250)
== END 2022-07-26 14:07 | disposition home or self-care (01) ==
LOC: HO.BBR 14:06
PROVIDERS: Visit Provider Internal Medicine Medical Oncology
DX: E83.110 Hereditary hemochromatosis (principal)
CPT/HCPCS: 36415; 82728; 85014; 85018

== ENCOUNTER 2022-08-20 14:47 | Outpatient (REF) | payer OTHER, SELFPAY ==
--- NOTE | ~2022-08-20 | XR_ITS ---
EXAMINATION: XR CHEST CLINICAL INFORMATION: Cough COMPARISON: Chest x-ray 11/24/2020 TECHNIQUE: 2 views of the chest were obtained. FINDINGS: Mild streaky bibasilar subsegmental atelectasis. No airspace consolidation. No pleural effusion or pneumothorax. Normal cardiomediastinal silhouette and pulmonary vascularity. No acute osseous injury identified. XR/XR chest 2V IMPRESSION: Mild bibasilar subsegmental atelectasis. No acute pulmonary process.
== END 2022-08-20 14:48 | disposition home or self-care (01) ==
LOC: HO.HMGCX 14:47
PROVIDERS: PCP Nurse Practitioner Family; Visit Provider Internal Medicine
DX: R05.9 Cough, unspecified (principal)
CPT/HCPCS: 71046

== ENCOUNTER 2022-09-11 14:02 | Outpatient (REF) | payer OTHER, SELFPAY ==
[2022-09-11 14:21] LABS: Hematocrit 44.8 % (42.0-52.0); Hemoglobin 16.2 g/dl (14.0-18.0)
[2022-09-11 15:31] LABS: Ferritin 323 ng/mL (20-250)
== END 2022-09-11 14:03 | disposition home or self-care (01) ==
LOC: HO.BBR 14:02
PROVIDERS: Visit Provider Internal Medicine Medical Oncology
DX: E83.110 Hereditary hemochromatosis (principal)
CPT/HCPCS: 36415; 82728; 85014; 85018

== ENCOUNTER 2022-09-18 11:56 | Outpatient (REF) | payer OTHER, SELFPAY ==
[2022-09-18 14:23] LABS: Blood Urea Nitrogen 14 mg/dL (9-16); Estimated Glomerular Filt Rate > 60
== END 2022-09-18 11:57 | disposition home or self-care (01) ==
LOC: HO.HMGCLDS 11:56
PROVIDERS: PCP Nurse Practitioner Family; Visit Provider Surgery
DX: N50.812 Left testicular pain (principal); K40.90 Unilateral inguinal hernia, without obstruction or gangrene, not specified as recurrent
CPT/HCPCS: 36415; 82565; 84520

== ENCOUNTER 2022-09-21 07:55 | Outpatient (REF) | payer OTHER, SELFPAY ==
--- NOTE | ~2022-09-21 | CT_ITS ---
EXAMINATION: CT ABDOMEN AND PELVIS WITH CONTRAST CLINICAL INFORMATION: Left inguinal hernia COMPARISON: Previous CT of the abdomen and pelvis December 2020 TECHNIQUE: Multidetector volumetric images were obtained from the superior aspect of the liver through the pubic symphysis following administration 85 mL of Omnipaque 350 intravenous contrast. Sagittal and coronal reformatted images were obtained on the technologist's workstation. Oral contrast: Yes This CT examination was performed using dose optimization techniques as appropriate, variously including the following: *Automated exposure control *Adjustment of mA and/or kV according to patient size (this includes techniques or standardized protocols for targeted exams where dose is matched to indication/reason for exam; i.e. extremities or head) *Use of iterative reconstruction technique DLP: 445 mGy-cm FINDINGS: LUNG BASES: The visualized lung bases are unremarkable. LIVER, GALLBLADDER, AND BILIARY TREE: The liver is normal in size, shape, and attenuation. No focal hepatic lesion or biliary ductal dilatation is present. The gallbladder is unremarkable with no evidence of radiopaque gallstones, gallbladder wall thickening, or obvious pericholecystic inflammatory changes. PANCREAS: Unremarkable. SPLEEN: Unremarkable. ADRENAL GLANDS: Unremarkable. KIDNEYS AND URETERS: Bilateral renal cysts. Right hydronephrosis. The right ureter is not dilated. This may represent a right UPJ obstruction. This is similar to previous exams. There are multiple left renal cysts. No imaging follow-up. BLADDER: Unremarkable. GASTROINTESTINAL TRACT: Diverticulosis of the colon. No evidence of diverticulitis. ABDOMINAL WALL: Left inguinal hernia containing fat and small amount of fluid. Small right inguinal hernia containing fat. Probable. LYMPH NODES: Normal. VASCULAR: Unremarkable. PELVIC VISCERA: Unremarkable. OSSEOUS STRUCTURES: Degenerative changes of the spine and hip joints. CT/CT abdomen pelvis w IV con IMPRESSION: Left inguinal hernia containing fat and small amount of fluid. Small right inguinal hernia. Stable renal findings. Diverticulosis of the colon. Fleischner guidelines were followed.
[2022-09-21] MEDS: Barium Sulfate Oral (Mocha) 450 ML ORAL.SUSP 900 ML PO (09:06)
[2022-09-21] MEDS: iohexoL 350 MG/ML 100 ML INFUS..BTL 85 ML IV (10:27)
== END 2022-09-21 07:56 | disposition home or self-care (01) ==
LOC: HO.CT 07:55
PROVIDERS: PCP Nurse Practitioner Family; Visit Provider Surgery
DX: K40.90 Unilateral inguinal hernia, without obstruction or gangrene, not specified as recurrent (principal); N50.82 Scrotal pain
CPT/HCPCS: 74177; Q9967

== ENCOUNTER 2022-10-04 06:28 | Outpatient (REF) | payer OTHER, SELFPAY ==
[2022-10-04 11:17] LABS: MANUAL DIFF FLAG NO
[2022-10-04 11:27] LABS: INTERNATIONAL NORM RATIO 0.8 (0.9-1.1); Prothrombin Time 9.5 SEC (10.0-13.1)
[2022-10-04 11:31] LABS: Partial Thromboplastin Time 29.7 SEC (26.0-36.4)
[2022-10-04 11:34] LABS: Basophils Absolute Auto 0.1 X10*3/uL (0.0-0.2); Basophils Percent Auto 1.1 % (0-2); Eosinophils Absolute Auto 0.1 X10*3/uL (0.0-0.4); Eosinophils Percent Auto 1.4 % (0-4); Hemoglobin 16.1 g/dl (14.0-18.0); Imm Gran Abs Auto 0.01 X10*3/uL (0.00-0.03); Imm Gran Pct Auto 0.2 % (0.0-0.4); Lymphocytes Absolute Auto 1.8 X10*3/uL (1.2-4.9); Lymphocytes Percent Auto 40.2 % (20-40); Mean Corpuscular HGB Conc 35.8 g/dl (31.0-36.0); Mean Corpuscular Hemoglobin 33.3 pg (27.0-33.0); Mean Platelet Volume 9.2 fL (9.4-12.4); Monocytes Absolute Auto 0.6 X10*3/uL (0.1-1.2); Monocytes Percent Auto 13.5 % (2-11); Neutrophils Absolute Auto 1.9 x10*3/uL (2.0-8.3); Neutrophils Percent Auto 43.6 % (45-73); Platelet Count 304 X10*3/uL (160-400); Red Blood Count 4.84 X10*6/uL (4.60-5.80); Red Cell Distribution Width 12.8 % (11.0-16.0); White Blood Count 4.4 X10*3/uL (4.8-10.8)
[2022-10-04 11:40] LABS: Appearance Urine Clear; Color Urine Yellow; Glucose Urine UA Negative (Negative); Leukocyte Esterase Urine Negative (Negative); Nitrite Urine Negative (Negative); Specific Gravity - Urine 1.015 (1.005-1.025); Urine Blood Negative (Negative); Urine Ketones Negative (Negative); Urine Protein Negative (Neg-Trace)
[2022-10-04 12:21] LABS: Alanine Aminotransferase 39 U/L (0-40); Albumin Level 4.3 g/dL (3.5-5.0); Alkaline Phosphatase 67 U/L (39-117); Anion Gap 10 (12-20); Aspartate Amino Transferase 19 U/L (5-37); Bilirubin Total 0.8 mg/dL (0.0-1.0); Blood Urea Nitrogen 17 mg/dL (9-16); Calcium 9.5 mg/dL (8.4-10.2); Carbon Dioxide 27 mmol/L (22-29); Chloride 105 mmol/L (96-108); Cholesterol 123 mg/dL; Estimated Glomerular Filt Rate > 60; Glucose Fasting 154 mg/dL (60-99); HDL Cholesterol 28 mg/dL; LDL Cholesterol Calculated 57 mg/dl; Potassium 3.8 mmol/L (3.3-5.1); Sodium 138 mmol/L (135-145); TSH reflex Free T4 1.94 uIU/mL (0.32-4.0); Total Protein 6.4 g/dL (6.5-8.0); Triglycerides 193 mg/dL
== END 2022-10-04 06:29 | disposition home or self-care (01) ==
LOC: HO.HMGCLDS 06:28
PROVIDERS: PCP Nurse Practitioner Family; Visit Provider Nurse Practitioner Family
DX: Z01.818 Encounter for other preprocedural examination (principal); R73.01 Impaired fasting glucose
CPT/HCPCS: 36415; 80053; 80061; 81003; 84443; 85025; 85610; 85730

== ENCOUNTER 2022-10-10 06:10 | Day surgery (SDC) | payer OTHER, SELFPAY ==
[2022-10-03 14:00] VITALS: BMI 30.1
--- NOTE | 2022-10-09 08:24 | HO.ANESPROP2 ---
Documented by User: Catie Stacy NP 10/09/22 08:27 HPI - Anesthesia Eval Consult details Narrative: 62yo M for Bilateral Hernia Repair Inguinal with mesh Optimized per PCP [facility] Active Problems Active Problems: All Active Problems (Updated 10/04/22 @ 17:48 by Ananth Chan, [facility]) Elevated fasting blood sugar (Acute) Pre-op evaluation (Acute) Cough (Acute) Tubular adenoma of colon (Acute) Screening for colon cancer (Acute) Physical exam (Acute) Abnormal EKG (Acute) Discomfort of groin (Acute) Left testicular pain (Acute) Left inguinal hernia (Acute) Urinary tract infection (Acute) Prostatitis (Acute) Scrotal pain (Acute) Fatigue (Acute) Chest discomfort (Acute) Mass of chest wall (Acute) Chest discomfort (Acute) Elevated ferritin (Acute) Myalgia (Acute) Hemochromatosis (Acute) Recurrent left inguinal hernia (Acute) COVID-19 (Acute) Elevated ferritin level (Acute) IBS (irritable bowel syndrome) (Acute) GERD (gastroesophageal reflux disease) (Acute) Nausea and vomiting (Acute) Abdominal bloating (Acute) Left ankle pain (Acute) Folliculitis (Acute) Screening PSA (prostate specific antigen) (Acute) H/O left inguinal hernia repair (Acute) Abdominal pain (Acute) Prostatitis (Acute) Epidermal inclusion cyst (Acute) Benign neoplasm of perianal skin (Acute) Lipoma of neck (Acute) Perianal lesion (Acute) Dyslipidemia (Acute) Acute pharyngitis (Acute) Hypertension (Acute) BPH (benign prostatic hyperplasia) (Acute) Hemorrhoids with complication (Acute) Elevated ferritin level (Acute) Past Medical History Medical History Anxiety Arm paresthesia, right Arthritis of left leg BPH (benign prostatic hyperplasia) Bursitis Elevated ferritin level Facet arthritis, degenerative, L5-S1 level, lumbosacral spine GERD (gastroesophageal reflux disease) Hemochromatosis Hemorrhoids with complication Hiatal hernia Hydronephrosis Hypertension Hypertriglyceridemia IBS (irritable bowel syndrome) Insomnia Left maxillary sinusitis Lymph node enlargement Lymphadenitis Family History Family History Brother History of colon cancer Mother History of breast cancer Father History of lung cancer Paternal Uncle History of lung cancer Maternal Grandmother History of heart attack Maternal Grandfather History of lung cancer Paternal Grandfather Cancer Other Mental health disorder Substance use disorder Surgical History Surgical History H/O left inguinal hernia repair H/O left inguinal hernia repair H/O right knee surgery H/O umbilical hernia repair History of cystoscopy History of hand surgery Hx of colonoscopy Hx of hand surgery Hx of hernia repair Hx of knee surgery Lipoma of left thigh Patellar tendon rupture History of Problems with Anesthesia: No Social History Social History Household Members: Spouse Housing: House Are you a primary healthcare facility administrator to a significant other at home: No Do you presently have visiting nurse or other home services: No Alcohol intake: current Alcohol intake frequency: a few times a month Patient Tobacco Use Status: Former Tobacco user Quit Date: 2016 Tobacco use type: Cigarette e-Cigarette/Vaping Use: Never Used Second Hand Smoke Exposure: Yes Use of substances other than those prescribed or required for medical reasons: Yes Substance Use Type: Marijuana Have you been hit, kicked, punched, or otherwise hurt by someone within the past year? 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 Cognitive needs: No Hearing needs: No Vision needs: No Meds Allergies Allergy/AdvReac Type Severity Reaction Status Date / Time Sulfa (Sulfonamide Allergy Severe ANAPHYLAXIS Verified 10/03/22 11:42 Antibiotics) [SULFA (SULFONAMIDE ANTIBIOTICS)] bee pollen [BEE STINGS] Allergy Unknown UNKNOWN Verified 10/03/22 11:42 fenofibrate Allergy Unknown joint pain Verified 10/03/22 11:42 gabapentin [GABAPENTIN] Allergy Unknown RASH, Verified 10/03/22 11:42 HALLUCINATIONS, hallucinations Penicillins [PENICILLINS] Allergy Unknown ANAPHYLAXIS Verified 10/03/22 11:42 sesame oil [SESAME OIL] Allergy Unknown UNKNOWN Verified 10/03/22 11:42 (AND SESAME SEED) vancomycin [VANCOMYCIN] Allergy Unknown ITCHING Verified 10/03/22 11:42 AND REDNESS TO SKIN, itching Home Medications Medication Instructions Recorded Confirmed Last Taken Type epinephrine 0.3 mg/0.3 mL 0.3 ml IM DIRECTED allergies 08/17/20 10/03/22 Unknown History injection, auto-injector cholecalciferol (vitamin D3) 50 50 mcg PO DAILY 10/25/21 10/03/22 Unknown History mcg (2,000 unit) capsule pumpkin seed xt and soybean germ See Rx Instructions .Route .COMPLEX 12/01/21 10/03/22 Unknown History 300 mg-Cissus quad xt 150 mg capsule Exam Exam Date and Time: October 09, 2022 0824 Height,Weight and Vital Signs: Height 5 ft 5 in Weight 82.1 kg Pertinent Lab Results Pertinent Lab Results: Laboratory Tests 10/04/22 10/04/22 06:54 06:54 WBC 4.4 L Hgb 16.1 Hct 45.0 Plt Count 304 Sodium 138 Potassium 3.8 Chloride 105 Carbon Dioxide 27 BUN 17 H Creatinine 0.92 Narrative Narrative: EKG 09/2022 NSR @ 60 ECHO 04/2022 Conclusions: - Essentially normal study ? NM cardiolite stress test 04/2022 Impression: ? 1.? Normal myocardial perfusion 2.? Gated LVEF is 60% 3. Transient ischemic dilatation not present ? Stress EKG is negative for ischemia Assessment and Plan Assessment Anesthesia Assessment: Chart Reviewed Final Anesthetic Review History of Problems with Anesthesia: No Documented by User: Kate Garcia MD 10/10/22 08:05 [facility] Past Medical History Medical History Anxiety Arm paresthesia, right Arthritis of left leg BPH (benign prostatic hyperplasia) Bursitis Elevated ferritin level Facet arthritis, degenerative, L5-S1 level, lumbosacral spine GERD (gastroesophageal reflux disease) Hemochromatosis Hemorrhoids with complication Hiatal hernia Hydronephrosis Hypertension Hypertriglyceridemia IBS (irritable bowel syndrome) Insomnia Left maxillary sinusitis Lymph node enlargement Lymphadenitis Functional capacity: independent ambulation Family History Family History Brother History of colon cancer Mother History of breast cancer Father History of lung cancer Paternal Uncle History of lung cancer Maternal Grandmother History of heart attack Maternal Grandfather History of lung cancer Paternal Grandfather Cancer Other Mental health disorder Substance use disorder Family history of problems with anesthesia: No Surgical History Surgical History H/O left inguinal hernia repair H/O left inguinal hernia repair H/O right knee surgery H/O umbilical hernia repair History of cystoscopy History of hand surgery Hx of colonoscopy Hx of hand surgery Hx of hernia repair Hx of knee surgery Lipoma of left thigh Patellar tendon rupture Social History Social History Household Members: Spouse Housing: House Are you a primary healthcare facility administrator to a significant other at home: No Do you presently have visiting nurse or other home services: No Alcohol intake: current Alcohol intake frequency: a few times a month Patient Tobacco Use Status: Former Tobacco user Quit Date: 2016 Tobacco use type: Cigarette e-Cigarette/Vaping Use: Never Used Second Hand Smoke Exposure: Yes Use of substances other than those prescribed or required for medical reasons: Yes Substance Use Type: Marijuana Have you been hit, kicked, punched, or otherwise hurt by someone within the past year? 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 Cognitive needs: No Hearing needs: No Vision needs: No Meds Allergies Allergy/AdvReac Type Severity Reaction Status Date / Time Sulfa (Sulfonamide Allergy Severe ANAPHYLAXIS Verified 10/03/22 11:42 Antibiotics) [SULFA (SULFONAMIDE ANTIBIOTICS)] bee pollen [BEE STINGS] Allergy Unknown UNKNOWN Verified 10/03/22 11:42 fenofibrate Allergy Unknown joint pain Verified 10/03/22 11:42 gabapentin [GABAPENTIN] Allergy Unknown RASH, Verified 10/03/22 11:42 HALLUCINATIONS, hallucinations Penicillins [PENICILLINS] Allergy Unknown ANAPHYLAXIS Verified 10/03/22 11:42 sesame oil [SESAME OIL] Allergy Unknown UNKNOWN Verified 10/03/22 11:42 (AND SESAME SEED) vancomycin [VANCOMYCIN] Allergy Unknown ITCHING Verified 10/03/22 11:42 AND REDNESS TO SKIN, itching Home Medications Medication Instructions Recorded Confirmed Last Taken Type epinephrine 0.3 mg/0.3 mL 0.3 ml IM DIRECTED allergies 08/17/20 10/03/22 Unknown History injection, auto-injector cholecalciferol (vitamin D3) 50 50 mcg PO DAILY 10/25/21 10/03/22 Unknown History mcg (2,000 unit) capsule pumpkin seed xt and soybean germ See Rx Instructions .Route .COMPLEX 12/01/21 10/03/22 Unknown History 300 mg-Cissus quad xt 150 mg capsule Exam Airway Mallampati Class: II Neck ROM: Full Heart: RRR Lungs: CTA Assessment and Plan Final Anesthetic Review Family History of Problems with Anesthesia: No ASA Class: II Final Preanesthetic Review: No Changes in Pt Med Stat, Meds/Allgs Chart Reviewed, Consent Obtained/Reviewed and Anes Risks/Benef Reviewed Patient Risk: Low Procedure Risk: Low Anesthetic Plan Anesthetic Plan: GA Disposition: Standard PACU
[2022-10-10] VITALS (12 sets, daily range): BP systolic 106–139; BP diastolic 60–82; PULSE 62–82; RESP 10–16; TEMP 36.2–36.6; O2SAT 92–95
[2022-10-10] MEDS: Lactated Ringers 1,000 ML 100 ML IVCONT (06:48)
--- NOTE | 2022-10-10 09:36 | W.PM.OPN ---
Operative Note Operative Note Date of Service: 10/10/22 Narrative: Preoperative diagnosis: Bilateral inguinal hernias Postoperative diagnosis: same Procedure: repair of bilateral inguinal hernias with mesh Surgeon: Ananth Olmedo MD Philosophy Faculty: Inge Hickman PA-C, [facility] Luis Anesthesia: general LMA Indications for procedure: 62-year-old male patient with previous recurrent left inguinal hernia now with a new recurrent left inguinal hernia and new right inguinal hernia presenting for repair of bilateral inguinal hernias with mesh Operative findings: meshoma on left side. previous mesh plug explanted and replaced with new extended large PHS mesh. Right inguinal hernia repaired with an extended large PHS mesh. Specimen: Explanted mesh left side, lipoma of the cord right side Estimated blood loss: 20 mL Complications: none Procedure details:?Patient was brought to the OR and placed in a supine position.? After administering general anesthesia the patient's abdomen was prepped with ChloraPrep and draped in a sterile fashion.? A surgical time-out was called the consent confirmed.? Patient received preoperative antibiotics and Venodyne boots were in place. Local anesthesia consisting of 0.5% Sensorcaine with epinephrine was infiltrated over the both inguinal ligaments.? Begining on the left side, an incision was then made in oblique fashion over the inguinal ligament.? This carried out through subcutaneous tissue past Jose's fashion up to the external oblique aponeurosis.? Additional local was infiltrated below the external oblique aponeurosis.? This was then incised with a scalpel wide with the Metzenbaum scissors.?Old mesh was found to be palpable from the indirect space and appeared to form a meshoma. The mesh was carefully dissected from the surrounding scar tissue using electrocautery. Spermatic cord was then dissected free from the surrounding inguinal canal and retracted using a Radha drain. A large indirect hernia remained after removal of the previous mesh. This defect extended into the preperitoneal space. Preperitoneal space was further opened using a Ray-Gumaro sponge. A large extended PHS mesh was obtained. The circular underlay was deployed into the preperitoneal space. The overlay was then secured to the pubic tubercle, conjoined tendon, and shelving edge of the inguinal ligament the 0 Polysorb suture. A slit was made in the mesh in the mesh wrapped around the spermatic cord at the internal ring. This was then secured to the shelving edge of the inguinal ligament using the 0 Polysorb suture. Wounds were then irrigated with saline solution suctioned dry. External oblique aponeurosis was then closed using a 2 0 Polysorb suture in a running fashion. 7 mL of Zenrelef was then infiltrated over the mesh. Attention was then directed to the right inguinal ligament. Additional local was infiltrated over the right inguinal ligament. Incision was then made with the scalp and carried out through subcutaneous tissue, past Jose's fashion up to the external oblique aponeurosis. Additional local was infiltrated below the external oblique aponeurosis. This was then incised with a scalpel wide with the Metzenbaum scissors. Spermatic cord was then dissected free from the surrounding inguinal canal and retracted using a [place] drain. No direct inguinal hernia could be identified. Fibers of the cremasteric muscle were then and a large lipoma noted within the Spermatic cord. The lipoma was dissected down to the internal ring ligated with a 0 Polysorb suture and divided. Was sent as specimen labeled lipoma of the cord right side. A large extended mesh PHS mesh was then obtained. Fibers of the internal oblique aponeurosis and transversalis aponeurosis were then grasped with Allis clamps. This was then incised with letter clem E. The preperitoneal space was entered and widened with an open Ray-Gumaro sponge. The circular underlay was then deployed within the preperitoneal space. The overlay was then secured to the pubic tubercle, conjoined tendon, and shelving edge of the inguinal ligament using a 0 Polysorb suture. A slit was made in the mesh and the mesh wrapped around the spermatic cord at the internal ring. This was then secured to the shelving edge using the 0 Polysorb suture. Wounds were again irrigated with saline solution and suctioned dry. The external oblique aponeurosis was then closed over the mesh using a running is a a 2 0 Polysorb suture. Zenrelef was then applied over the mesh with approximately 7 mL. Both incisions were then closed sign with a knee sleeve using 3-0 Polysorb sutures to close the Jose's fascia and dermis. Skin was then closed using a running subcuticular 4-0 Polysorb suture. Steri-Strips, 4 x 4 gauze and Tegaderm were then applied. The patient tolerated the procedure well. Sponge, instrument, and needle counts reported as correct. The patient was transferred to PACU in stable condition.
[2022-10-10] MEDS: fentaNYL citrate/PF 100 MCG/2 ML VIAL 25 MCG IVPUSH ×3 (09:55→10:15)
[2022-10-10] MEDS: oxyCODONE HCl Immed Release 5 MG TABLET 10 MG PO (10:19)
[2022-10-10] MEDS: Acetaminophen 1,000 MG/100 ML PIGGYBACK 400 MG IV (11:24)
== END 2022-10-10 13:35 | disposition home or self-care (01) ==
PROVIDERS: PCP Nurse Practitioner Family; Visit Provider Surgery
PROC: (CPT 49505; principal; 2022-10-10 07:30)
DX: K40.91 Unilateral inguinal hernia, without obstruction or gangrene, recurrent (principal); K40.90 Unilateral inguinal hernia, without obstruction or gangrene, not specified as recurrent; D17.6 Benign lipomatous neoplasm of spermatic cord; I10 Essential (primary) hypertension; N40.0 Benign prostatic hyperplasia without lower urinary tract symptoms; Z79.899 Other long term (current) drug therapy; Z88.0 Allergy status to penicillin; Z88.1 Allergy status to other antibiotic agents; Z88.2 Allergy status to sulfonamides; Z88.8 Allergy status to other drugs, medicaments and biological substances
CPT/HCPCS: 49505; 49520; 88304; C1781; C9088; J0131; J1100; J1885; J1956; J2250; J2405; J2795; J3010

== ENCOUNTER 2022-11-06 09:23 | Outpatient (REF) | payer OTHER, SELFPAY ==
[2022-11-06 11:19] LABS: MANUAL DIFF FLAG NO
[2022-11-06 11:30] LABS: Appearance Urine Clear; Color Urine Yellow; Glucose Urine UA Negative (Negative); Leukocyte Esterase Urine Negative (Negative); Nitrite Urine Negative (Negative); Specific Gravity - Urine 1.015 (1.005-1.025); Urine Blood Negative (Negative); Urine Ketones Negative (Negative); Urine Protein Negative (Neg-Trace)
[2022-11-06 11:35] LABS: Basophils Percent Auto 0.8 % (0-2); Eosinophils Absolute Auto 0.1 X10*3/uL (0.0-0.4); Eosinophils Percent Auto 2.3 % (0-4); Hematocrit 45.1 % (42.0-52.0); Hemoglobin 15.8 g/dl (14.0-18.0); Imm Gran Abs Auto 0.01 X10*3/uL (0.00-0.03); Imm Gran Pct Auto 0.2 % (0.0-0.4); Lymphocytes Absolute Auto 1.7 X10*3/uL (1.2-4.9); Lymphocytes Percent Auto 31.6 % (20-40); Mean Corpuscular Volume 94.2 fL (80.0-98.0); Monocytes Absolute Auto 0.5 X10*3/uL (0.1-1.2); Neutrophils Absolute Auto 2.9 x10*3/uL (2.0-8.3); Neutrophils Percent Auto 55.1 % (45-73); Platelet Count 326 X10*3/uL (160-400); Red Blood Count 4.79 X10*6/uL (4.60-5.80); Red Cell Distribution Width 12.1 % (11.0-16.0); White Blood Count 5.3 X10*3/uL (4.8-10.8)
[2022-11-06 12:18] LABS: Alanine Aminotransferase 44 U/L (0-40); Albumin Level 4.4 g/dL (3.5-5.0); Alkaline Phosphatase 64 U/L (39-117); Anion Gap 14 (12-20); Aspartate Amino Transferase 24 U/L (5-37); Bilirubin Total 0.9 mg/dL (0.0-1.0); Blood Urea Nitrogen 14 mg/dL (9-16); Calcium 9.4 mg/dL (8.4-10.2); Carbon Dioxide 23 mmol/L (22-29); Chloride 108 mmol/L (96-108); Cholesterol 142 mg/dL; Estimated Glomerular Filt Rate > 60; Glucose Fasting 138 mg/dL (60-99); HDL Cholesterol 36 mg/dL; LDL Cholesterol Calculated 65 mg/dl; Potassium 4.1 mmol/L (3.3-5.1); Sodium 141 mmol/L (135-145); Total Protein 6.7 g/dL (6.5-8.0); Triglycerides 205 mg/dL
[2022-11-06 12:40] LABS: TSH reflex Free T4 1.17 uIU/mL (0.32-4.0)
== END 2022-11-06 09:24 | disposition home or self-care (01) ==
LOC: HO.HMGCLDS 09:23
PROVIDERS: PCP Nurse Practitioner Family; Visit Provider Nurse Practitioner Family
DX: Z00.00 Encounter for general adult medical examination without abnormal findings (principal); R73.01 Impaired fasting glucose
CPT/HCPCS: 36415; 80053; 80061; 81003; 84443; 85025

== ENCOUNTER → 2022-11-08 13:59 | Outpatient (BNVA) | payer OTHER, SELFPAY | PROVIDERS: PCP Nurse Practitioner Family; Visit Provider Surgery | DX: Z13.89 Encounter for screening for other disorder (principal) ==

== ENCOUNTER 2022-11-09 08:27 | Outpatient (REF) | payer OTHER, SELFPAY ==
[2022-11-09 08:50] LABS: Hematocrit 43.2 % (42.0-52.0); Hemoglobin 15.4 g/dl (14.0-18.0)
[2022-11-09 11:38] LABS: Ferritin 338 ng/mL (20-250)
== END 2022-11-09 08:28 | disposition home or self-care (01) ==
LOC: HO.BBR 08:27
PROVIDERS: PCP Nurse Practitioner Family; Visit Provider Internal Medicine Medical Oncology
DX: E83.110 Hereditary hemochromatosis (principal)
CPT/HCPCS: 36415; 82728; 85014; 85018

== ENCOUNTER 2023-01-15 07:43 | Day surgery (SDC) | payer OTHER, SELFPAY ==
--- NOTE | 2023-01-14 10:29 | HO.ANESPROP2 ---
Documented by User: Catie Stacy NP 01/14/23 10:33 HPI - Anesthesia Eval Consult details Narrative: 62yo M for Upper Endoscopy and Colonoscopy s/p bilat inguinal hernia repair 10/2022 with GA-LMA 5 PMFSH Active Problems Active Problems: All Active Problems (Updated 11/08/22 @ 14:27 by Ananth Olmedo MD) Vocal cord edema (Acute) Dysphagia (Acute) Bilateral inguinal hernia (Acute) Elevated fasting blood sugar (Acute) Pre-op evaluation (Acute) Cough (Acute) Tubular adenoma of colon (Acute) Screening for colon cancer (Acute) Physical exam (Acute) Abnormal EKG (Acute) Discomfort of groin (Acute) Left testicular pain (Acute) Left inguinal hernia (Acute) Urinary tract infection (Acute) Prostatitis (Acute) Scrotal pain (Acute) Fatigue (Acute) Chest discomfort (Acute) Mass of chest wall (Acute) Chest discomfort (Acute) Elevated ferritin (Acute) Myalgia (Acute) Hemochromatosis (Acute) Recurrent left inguinal hernia (Acute) COVID-19 (Acute) Elevated ferritin level (Acute) IBS (irritable bowel syndrome) (Acute) GERD (gastroesophageal reflux disease) (Acute) Nausea and vomiting (Acute) Abdominal bloating (Acute) Left ankle pain (Acute) Folliculitis (Acute) Screening PSA (prostate specific antigen) (Acute) H/O left inguinal hernia repair (Acute) Abdominal pain (Acute) Prostatitis (Acute) Epidermal inclusion cyst (Acute) Benign neoplasm of perianal skin (Acute) Lipoma of neck (Acute) Perianal lesion (Acute) Dyslipidemia (Acute) Acute pharyngitis (Acute) Hypertension (Acute) BPH (benign prostatic hyperplasia) (Acute) Hemorrhoids with complication (Acute) Elevated ferritin level (Acute) Past Medical History Medical History Anxiety Arm paresthesia, right Arthritis of left leg BPH (benign prostatic hyperplasia) Bursitis Elevated ferritin level Facet arthritis, degenerative, L5-S1 level, lumbosacral spine GERD (gastroesophageal reflux disease) Hemochromatosis Hemorrhoids with complication Hiatal hernia Hydronephrosis Hypertension Hypertriglyceridemia IBS (irritable bowel syndrome) Insomnia Left maxillary sinusitis Lymph node enlargement Lymphadenitis Family History Family History Brother History of colon cancer Mother History of breast cancer Father History of lung cancer Paternal Uncle History of lung cancer Maternal Grandmother History of heart attack Maternal Grandfather History of lung cancer Paternal Grandfather Cancer Other Mental health disorder Substance use disorder Family history of problems with anesthesia: No Surgical History Surgical History H/O left inguinal hernia repair H/O left inguinal hernia repair H/O right knee surgery H/O umbilical hernia repair History of cystoscopy History of hand surgery Hx of colonoscopy Hx of hand surgery Hx of hernia repair Hx of knee surgery Lipoma of left thigh Patellar tendon rupture History of Problems with Anesthesia: No Social History Social History Household Members: Spouse Housing: House Are you a primary child caregiver private home to a significant other at home: No Do you presently have visiting nurse or other home services: No Alcohol intake: current Alcohol intake frequency: a few times a month Patient Tobacco Use Status: Former Tobacco user Quit Date: 2016 Tobacco use type: Cigarette e-Cigarette/Vaping Use: Never Used Second Hand Smoke Exposure: Yes Use of substances other than those prescribed or required for medical reasons: Yes Substance Use Type: Marijuana Substance Use Type Other:: gummies Are you DNR?: No Advance Directives: No Advance Directives Information Provided: Yes Recently lost weight without trying: No Nutrition Risks: No Nutritional Risk service: No Current occupational status: employed 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 Cognitive needs: No Hearing needs: No Vision needs: No Meds Allergies Allergy/AdvReac Type Severity Reaction Status Date / Time bee pollen [BEE STINGS] Allergy Severe Swelling Verified 01/15/23 07:51 Sulfa (Sulfonamide Allergy Severe ANAPHYLAXIS Verified 11/08/22 14:07 Antibiotics) [SULFA (SULFONAMIDE ANTIBIOTICS)] fenofibrate Allergy Unknown joint pain Verified 11/08/22 14:07 gabapentin [GABAPENTIN] Allergy Unknown RASH, Verified 11/08/22 14:07 HALLUCINATIONS, hallucinations Penicillins [PENICILLINS] Allergy Unknown ANAPHYLAXIS Verified 11/08/22 14:07 sesame oil [SESAME OIL] Allergy Unknown UNKNOWN Verified 11/08/22 14:07 (AND SESAME SEED) vancomycin [VANCOMYCIN] Allergy Unknown ITCHING Verified 11/08/22 14:07 AND REDNESS TO SKIN, itching Home Medications Medication Instructions Recorded Confirmed Last Taken Type epinephrine 0.3 mg/0.3 mL 0.3 ml IM DIRECTED allergies 08/17/20 01/15/23 Unknown History injection, auto-injector cholecalciferol (vitamin D3) 50 50 mcg PO DAILY 10/25/21 01/15/23 Unknown History mcg (2,000 unit) capsule pumpkin seed xt and soybean germ See Rx Instructions .Route .COMPLEX 12/01/21 01/15/23 Unknown History 300 mg-Cissus quad xt 150 mg capsule multivitamin (Daily Multi-Vitamin 1 tab PO DAILY 11/08/22 01/15/23 Unknown History tablet) vitamin B complex (B 1 tab PO DAILY 11/08/22 01/15/23 Unknown History Complex-Vitamin B12 tablet) Exam Exam Date and Time: January 14, 2023 1029 Pertinent Lab Results Pertinent Lab Results: Laboratory Tests 11/06/22 11/06/22 11/09/22 09:32 09:32 08:46 WBC 5.3 Hgb 15.4 Hct 43.2 Plt Count 326 Sodium 141 Potassium 4.1 Chloride 108 Carbon Dioxide 23 BUN 14 Creatinine 0.82 Narrative Narrative: EKG 09/2022 NSR @ 60 ECHO 2021 Conclusions: - Essentially normal study ? /NM cardiolite stress test 2021 Impression: ? 1.? Normal myocardial perfusion 2.? Gated LVEF is 60% 3. Transient ischemic dilatation not present ? Stress EKG is negative for ischemia Assessment and Plan Assessment Anesthesia Assessment: Chart Reviewed Final Anesthetic Review Family History of Problems with Anesthesia: No History of Problems with Anesthesia: No Documented by User: Joe Patel MD 01/15/23 09:39 [facility] Past Medical History Medical History Anxiety Arm paresthesia, right Arthritis of left leg BPH (benign prostatic hyperplasia) Bursitis Elevated ferritin level Facet arthritis, degenerative, L5-S1 level, lumbosacral spine GERD (gastroesophageal reflux disease) Hemochromatosis Hemorrhoids with complication Hiatal hernia Hydronephrosis Hypertension Hypertriglyceridemia IBS (irritable bowel syndrome) Insomnia Left maxillary sinusitis Lymph node enlargement Lymphadenitis Family History Family History Brother History of colon cancer Mother History of breast cancer Father History of lung cancer Paternal Uncle History of lung cancer Maternal Grandmother History of heart attack Maternal Grandfather History of lung cancer Paternal Grandfather Cancer Other Mental health disorder Substance use disorder Surgical History Surgical History H/O left inguinal hernia repair H/O left inguinal hernia repair H/O right knee surgery H/O umbilical hernia repair History of cystoscopy History of hand surgery Hx of colonoscopy Hx of hand surgery Hx of hernia repair Hx of knee surgery Lipoma of left thigh Patellar tendon rupture Social History Social History Household Members: Spouse Housing: House Are you a primary child caregiver private home to a significant other at home: No Do you presently have visiting nurse or other home services: No Alcohol intake: current Alcohol intake frequency: a few times a month Patient Tobacco Use Status: Former Tobacco user Quit Date: 2016 Tobacco use type: Cigarette e-Cigarette/Vaping Use: Never Used Second Hand Smoke Exposure: Yes Use of substances other than those prescribed or required for medical reasons: Yes Substance Use Type: Marijuana Substance Use Type Other:: gummies Are you DNR?: No Advance Directives: No Advance Directives Information Provided: Yes Recently lost weight without trying: No Nutrition Risks: No Nutritional Risk service: No Current occupational status: employed 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 Cognitive needs: No Hearing needs: No Vision needs: No Meds Allergies Allergy/AdvReac Type Severity Reaction Status Date / Time bee pollen [BEE STINGS] Allergy Severe Swelling Verified 01/15/23 07:51 Sulfa (Sulfonamide Allergy Severe ANAPHYLAXIS Verified 11/08/22 14:07 Antibiotics) [SULFA (SULFONAMIDE ANTIBIOTICS)] fenofibrate Allergy Unknown joint pain Verified 11/08/22 14:07 gabapentin [GABAPENTIN] Allergy Unknown RASH, Verified 11/08/22 14:07 HALLUCINATIONS, hallucinations Penicillins [PENICILLINS] Allergy Unknown ANAPHYLAXIS Verified 11/08/22 14:07 sesame oil [SESAME OIL] Allergy Unknown UNKNOWN Verified 11/08/22 14:07 (AND SESAME SEED) vancomycin [VANCOMYCIN] Allergy Unknown ITCHING Verified 11/08/22 14:07 AND REDNESS TO SKIN, itching Home Medications Medication Instructions Recorded Confirmed Last Taken Type epinephrine 0.3 mg/0.3 mL 0.3 ml IM DIRECTED allergies 08/17/20 01/15/23 Unknown History injection, auto-injector cholecalciferol (vitamin D3) 50 50 mcg PO DAILY 10/25/21 01/15/23 Unknown History mcg (2,000 unit) capsule pumpkin seed xt and soybean germ See Rx Instructions .Route .COMPLEX 12/01/21 01/15/23 Unknown History 300 mg-Cissus quad xt 150 mg capsule multivitamin (Daily Multi-Vitamin 1 tab PO DAILY 11/08/22 01/15/23 Unknown History tablet) vitamin B complex (B 1 tab PO DAILY 11/08/22 01/15/23 Unknown History Complex-Vitamin B12 tablet) Exam Airway Mallampati Class: I TM Dist: >3cm Neck ROM: Full Heart: ok Lungs: ok Assessment and Plan Final Anesthetic Review NPO: Yes ASA Class: II Final Preanesthetic Review: No Changes in Pt Med Stat, Meds/Allgs Chart Reviewed, Consent Obtained/Reviewed and Anes Risks/Benef Reviewed Patient Risk: Intermediate Procedure Risk: Intermediate Anesthetic Plan Anesthetic Plan: MAC: and Agree w/ Assess. and Plan Disposition: Standard PACU
[2023-01-15 07:54] VITALS: BMI 28.6
[2023-01-15 08:01] VITALS: BP 124/90; PULSE 60; RESP 16; TEMP 36.5; O2SAT 96
[2023-01-15] MEDS: Lactated Ringers 1,000 ML 100 ML IVCONT (08:23)
--- NOTE | 2023-01-15 09:01 | MHC.SHP ---
Pre-Procedural Eval Section A Date of Service: 01/15/23 Section B Chief Complaint: Dysphagia, unspecified,screening Details of Present Illness: see h&p no changes Relevant Family History (Specify if Yes): No Relevant Social History: None Present Medications: see Short Stay [facility] assessment Medical History: No relevant PMH History of Previous Operations: No relevant previous surgery Allergies: Allergies Allergy/AdvReac Type Severity Reaction Status Date / Time bee pollen [BEE STINGS] Allergy Severe Swelling Verified 01/15/23 07:51 Sulfa (Sulfonamide Allergy Severe ANAPHYLAXIS Verified 11/08/22 14:07 Antibiotics) [SULFA (SULFONAMIDE ANTIBIOTICS)] fenofibrate Allergy Unknown joint pain Verified 11/08/22 14:07 gabapentin [GABAPENTIN] Allergy Unknown RASH, Verified 11/08/22 14:07 HALLUCINATIONS, hallucinations Penicillins [PENICILLINS] Allergy Unknown ANAPHYLAXIS Verified 11/08/22 14:07 sesame oil [SESAME OIL] Allergy Unknown UNKNOWN Verified 11/08/22 14:07 (AND SESAME SEED) vancomycin [VANCOMYCIN] Allergy Unknown ITCHING Verified 11/08/22 14:07 AND REDNESS TO SKIN, itching Review of Systems Sugical H&P ROS: Negative: Constitution, Cardiovascular, Respiratory, Neurological, Psychiatric, Hem-Onc, Allergic/Immunologic, Gastrointestinal, Genitourinary, Musculoskeletal, Integumentary, Endocrine and Eyes/Ears/Nose/Throat Exam Surgical H&P Exam: Normal: HEENT, Normal: Heart, Normal: Lungs, Normal: Extremities, Normal: Abdomen, Normal: Skin and Normal: Neurological Plan Diagnosis/Plan: Unchanged I have reviewed the history and physical and performed a pertinent physical examination on my patient. No changes have occurred unless specified. Time Spent With Patient Time: Total time managing care of this patient today ____ minutes.
--- NOTE | 2023-01-15 09:48 | PM.OP ---
Brief Operative Note Date of Service: 01/15/23 Pre-op diagnosis: dysphagia screening Post-op diagnosis: same Procedure: egd colonoscopy Surgeon: Austin Balderas Anesthesia: MAC Was an Assistant Broker used for this Procedure?: No Estimated blood loss (mL): 5 Pathology: other Condition: stable Disposition: PACU
[2023-01-15 09:49] VITALS: BP 94/65; PULSE 57; RESP 16; TEMP 36.8; O2SAT 93
[2023-01-15 10:04] VITALS: BP 111/73; PULSE 59; RESP 18; TEMP 36.2; O2SAT 94
--- NOTE | 2023-01-15 20:18 | OP_ITS ---
SURGEON: Austin Balderas MD INDICATIONS: 1. Dysphagia. 2. Colon cancer screening. PREOPERATIVE DIAGNOSIS: POSTOPERATIVE DIAGNOSIS: PROCEDURE PERFORMED: ESTIMATED BLOOD LOSS: COMPLICATIONS: ANESTHESIA: Monitored anesthesia care. ASSISTANTS: SPECIMENS: PROCEDURES PERFORMED: Upper endoscopy with biopsy, colonoscopy to the terminal ileum. DESCRIPTION OF PROCEDURE: Date: 01/15/23. History and physical was performed. The risks and benefits of the procedure were explained to the patient and informed consent was obtained. The patient was placed in the left lateral decubitus position. The Olympus video gastroscope was introduced into the esophagus, stomach, and duodenum. Examination was performed. The scope was removed. He was repositioned for colonoscopy. A digital rectal exam was performed and was found to be normal. The Olympus pediatric video colonoscope was introduced into the rectum and advanced to the cecum without difficulty. The cecum was identified by transillumination, palpation, and identification of ileocecal valve. Examination was performed. The scope was removed. He tolerated both procedures well and was returned to recovery area in stable condition. FINDINGS: Upper endoscopy: Esophagus: The esophagus was normal. There was a slightly irregular EG junction which was biopsied. There was no stricture or narrowing. Stomach: The stomach showed no evidence of masses or polyps. There were some antral erosions in the pre-pyloric area consistent with erosive gastritis. Biopsies were obtained from the antrum. Duodenum: The bulb and 2nd portion were normal. Colonoscopy: The terminal ileum was examined and appeared normal. The visualized colonic mucosa was within normal limits without evidence of masses or ulcers. There was moderate sigmoid diverticulosis with diverticula scattered throughout the remainder of the colon. No polyps were identified. Retroflexed examination showed moderate-sized internal hemorrhoids. IMPRESSION: 1. Erosive gastritis. 2. Normal colonoscopy. RECOMMENDATION: 1. Follow up the biopsy results. 2. Repeat colonoscopy is recommended in 5 years because of family history of colon cancer. MD CHELI Gomez/JUICE / [id number] MTDD
== END 2023-01-15 10:32 | disposition home or self-care (01) ==
PROVIDERS: PCP Nurse Practitioner Family; Visit Provider Internal Medicine Gastroenterology
PROC: (CPT 45378; principal; 2023-01-15 08:50)
DX: Z12.11 Encounter for screening for malignant neoplasm of colon (principal); Z86.010 Personal history of colon polyps; Z80.0 Family history of malignant neoplasm of digestive organs; K57.30 Diverticulosis of large intestine without perforation or abscess without bleeding; K64.8 Other hemorrhoids; N40.0 Benign prostatic hyperplasia without lower urinary tract symptoms; I10 Essential (primary) hypertension; E78.00 Pure hypercholesterolemia, unspecified; F41.1 Generalized anxiety disorder; R13.10 Dysphagia, unspecified; K29.60 Other gastritis without bleeding; Z79.899 Other long term (current) drug therapy; Z88.0 Allergy status to penicillin; Z88.1 Allergy status to other antibiotic agents; Z88.8 Allergy status to other drugs, medicaments and biological substances; Z87.891 Personal history of nicotine dependence
CPT/HCPCS: 45378; 43239; 88305; 88342; J3010

== ENCOUNTER → 2023-02-08 13:30 | Outpatient (BNVA) | payer OTHER, SELFPAY | PROVIDERS: PCP Nurse Practitioner Family; Visit Provider Surgery | DX: Z13.89 Encounter for screening for other disorder (principal) ==

== ENCOUNTER 2023-02-13 10:04 | Outpatient (REF) | payer OTHER, SELFPAY ==
[2023-02-13 10:21] LABS: MANUAL DIFF FLAG NO
[2023-02-13 10:24] LABS: Basophils Absolute Auto 0.1 X10*3/uL (0.0-0.2); Basophils Percent Auto 0.8 % (0-2); Eosinophils Absolute Auto 0.1 X10*3/uL (0.0-0.4); Eosinophils Percent Auto 1.7 % (0-4); Hemoglobin 16.1 g/dl (14.0-18.0); Imm Gran Abs Auto 0.01 X10*3/uL (0.00-0.03); Imm Gran Pct Auto 0.2 % (0.0-0.4); Lymphocytes Absolute Auto 1.8 X10*3/uL (1.2-4.9); Lymphocytes Percent Auto 27.5 % (20-40); Mean Corpuscular HGB Conc 35.8 g/dl (31.0-36.0); Mean Corpuscular Hemoglobin 33.5 pg (27.0-33.0); Mean Corpuscular Volume 93.8 fL (80.0-98.0); Mean Platelet Volume 8.9 fL (9.4-12.4); Monocytes Absolute Auto 0.6 X10*3/uL (0.1-1.2); Monocytes Percent Auto 9.7 % (2-11); Neutrophils Absolute Auto 3.8 x10*3/uL (2.0-8.3); Neutrophils Percent Auto 60.1 % (45-73); Platelet Count 271 X10*3/uL (160-400); Red Cell Distribution Width 12.3 % (11.0-16.0); White Blood Count 6.4 X10*3/uL (4.8-10.8)
[2023-02-13 11:54] LABS: Alanine Aminotransferase 21 U/L (0-40); Albumin Level 4.2 g/dL (3.5-5.0); Alkaline Phosphatase 81 U/L (39-117); Anion Gap 12 (12-20); Aspartate Amino Transferase 12 U/L (5-37); Bilirubin Total 0.9 mg/dL (0.0-1.0); Blood Urea Nitrogen 21 mg/dL (9-16); Calcium 9.3 mg/dL (8.4-10.2); Carbon Dioxide 26 mmol/L (22-29); Chloride 106 mmol/L (96-108); Estimated Glomerular Filt Rate > 60; Glucose Random 227 mg/dL (60-115); Iron 134 mcg/dL (45-160); Percent Iron Saturation 49 % (15-50); Potassium 4.2 mmol/L (3.3-5.1); Sodium 140 mmol/L (135-145); Total Iron Binding Capacity 276 mcg/dL (228-428); Total Protein 6.2 g/dL (6.5-8.0); Unsaturated Iron Binding 142 ug/dL
[2023-02-13 12:09] LABS: Ferritin 151 ng/mL (20-250)
== END 2023-02-13 10:05 | disposition home or self-care (01) ==
LOC: HO.BBR 10:04
PROVIDERS: PCP Nurse Practitioner Family; Visit Provider Internal Medicine Medical Oncology
DX: E83.110 Hereditary hemochromatosis (principal)
CPT/HCPCS: 36415; 80053; 82728; 83540; 85025

== ENCOUNTER → 2023-03-20 09:55 | Outpatient (BNVA) | payer OTHER, SELFPAY | PROVIDERS: PCP Nurse Practitioner Family; Visit Provider Urology ==

== ENCOUNTER → 2023-04-05 08:23 | Outpatient (BNVA) | payer OTHER, SELFPAY | PROVIDERS: PCP Nurse Practitioner Family; Visit Provider Urology ==

== ENCOUNTER 2023-04-18 11:55 | Outpatient (REF) | payer OTHER, SELFPAY | END 2023-04-18 11:56 | disposition home or self-care (01) | LOC: HO.BBR 11:55 | PROVIDERS: PCP Nurse Practitioner Family; Visit Provider Internal Medicine Medical Oncology | DX: Z13.89 Encounter for screening for other disorder (principal) ==

== ENCOUNTER 2023-05-06 08:25 | Outpatient (REF) | payer OTHER, SELFPAY | END 2023-05-06 08:26 | disposition home or self-care (01) | LOC: HO.HMGCX 08:25 | PROVIDERS: PCP Nurse Practitioner Family; Visit Provider Internal Medicine | DX: R07.9 Chest pain, unspecified (principal) | CPT/HCPCS: 71046 ==

== ENCOUNTER 2023-05-30 11:53 | Outpatient (REF) | payer OTHER, SELFPAY ==
[2023-05-30 12:09] LABS: MANUAL DIFF FLAG NO
[2023-05-30 12:11] LABS: Basophils Percent Auto 0.4 % (0-2); Eosinophils Absolute Auto 0.1 X10*3/uL (0.0-0.4); Eosinophils Percent Auto 1.4 % (0-4); Hematocrit 44.4 % (42.0-52.0); Hemoglobin 15.9 g/dl (14.0-18.0); Imm Gran Abs Auto 0.01 X10*3/uL (0.00-0.03); Imm Gran Pct Auto 0.2 % (0.0-0.4); Lymphocytes Absolute Auto 1.7 X10*3/uL (1.2-4.9); Lymphocytes Percent Auto 33.9 % (20-40); Mean Corpuscular HGB Conc 35.8 g/dl (31.0-36.0); Mean Corpuscular Hemoglobin 33.3 pg (27.0-33.0); Mean Corpuscular Volume 92.9 fL (80.0-98.0); Mean Platelet Volume 8.6 fL (9.4-12.4); Monocytes Absolute Auto 0.6 X10*3/uL (0.1-1.2); Monocytes Percent Auto 11.3 % (2-11); Neutrophils Absolute Auto 2.6 x10*3/uL (2.0-8.3); Neutrophils Percent Auto 52.8 % (45-73); Platelet Count 268 X10*3/uL (160-400); Red Blood Count 4.78 X10*6/uL (4.60-5.80); Red Cell Distribution Width 12.4 % (11.0-16.0); White Blood Count 4.9 X10*3/uL (4.8-10.8)
[2023-05-30 14:35] LABS: Alanine Aminotransferase 27 U/L (0-40); Albumin Level 4.2 g/dL (3.5-5.0); Alkaline Phosphatase 70 U/L (39-117); Anion Gap 14 (12-20); Aspartate Amino Transferase 25 U/L (5-37); Bilirubin Total 0.7 mg/dL (0.0-1.0); Blood Urea Nitrogen 10 mg/dL (9-16); Carbon Dioxide 21 mmol/L (22-29); Chloride 108 mmol/L (96-108); Estimated Glomerular Filt Rate > 60; Glucose Random 167 mg/dL (60-115); Iron 178 mcg/dL (45-160); Percent Iron Saturation 63 % (15-50); Potassium 3.5 mmol/L (3.3-5.1); Sodium 139 mmol/L (135-145); Total Iron Binding Capacity 281 mcg/dL (228-428); Total Protein 6.6 g/dL (6.5-8.0); Unsaturated Iron Binding 103 ug/dL
[2023-05-30 14:55] LABS: Ferritin 83 ng/mL (20-250)
== END 2023-05-30 11:54 | disposition home or self-care (01) ==
LOC: HO.BBR 11:53
PROVIDERS: PCP Internal Medicine; Visit Provider Internal Medicine Medical Oncology
DX: E83.110 Hereditary hemochromatosis (principal)
CPT/HCPCS: 36415; 80053; 82728; 83540; 85025

== ENCOUNTER 2023-06-19 10:43 | Outpatient (REF) | payer OTHER, SELFPAY ==
[2023-06-19 13:12] LABS: MANUAL DIFF FLAG NO
[2023-06-19 13:21] LABS: Basophils Percent Auto 0.6 % (0-2); Eosinophils Absolute Auto 0.1 X10*3/uL (0.0-0.4); Eosinophils Percent Auto 1.3 % (0-4); Hematocrit 44.2 % (42.0-52.0); Hemoglobin 15.5 g/dl (14.0-18.0); Imm Gran Abs Auto 0.01 X10*3/uL (0.00-0.03); Imm Gran Pct Auto 0.2 % (0.0-0.4); Lymphocytes Absolute Auto 1.5 X10*3/uL (1.2-4.9); Mean Corpuscular HGB Conc 35.1 g/dl (31.0-36.0); Mean Corpuscular Volume 94.2 fL (80.0-98.0); Mean Platelet Volume 9.2 fL (9.4-12.4); Monocytes Absolute Auto 0.5 X10*3/uL (0.1-1.2); Monocytes Percent Auto 10.8 % (2-11); Neutrophils Absolute Auto 2.7 x10*3/uL (2.0-8.3); Neutrophils Percent Auto 56.1 % (45-73); Platelet Count 309 X10*3/uL (160-400); Red Blood Count 4.69 X10*6/uL (4.60-5.80); Red Cell Distribution Width 12.5 % (11.0-16.0); White Blood Count 4.8 X10*3/uL (4.8-10.8)
[2023-06-19 13:25] LABS: Appearance Urine Clear; Color Urine Yellow; Glucose Urine UA Negative (Negative); Leukocyte Esterase Urine Negative (Negative); Nitrite Urine Negative (Negative); PH 7.5 (5.0-9.0); Specific Gravity - Urine <= 1.005 (1.005-1.025); Urine Blood Negative (Negative); Urine Ketones Negative (Negative); Urine Protein Negative (Neg-Trace)
[2023-06-19 13:50] LABS: Alanine Aminotransferase 23 U/L (0-40); Albumin Level 4.2 g/dL (3.5-5.0); Alkaline Phosphatase 71 U/L (39-117); Anion Gap 11 (12-20); Aspartate Amino Transferase 14 U/L (5-37); Bilirubin Total 0.8 mg/dL (0.0-1.0); Blood Urea Nitrogen 14 mg/dL (9-16); Calcium 9.2 mg/dL (8.4-10.2); Carbon Dioxide 26 mmol/L (22-29); Chloride 108 mmol/L (96-108); Cholesterol 149 mg/dL; Estimated Glomerular Filt Rate > 60; Glucose Fasting 159 mg/dL (60-99); HDL Cholesterol 36 mg/dL; LDL Cholesterol Calculated 86 mg/dl; Potassium 3.8 mmol/L (3.3-5.1); Sodium 141 mmol/L (135-145); Total Protein 6.7 g/dL (6.5-8.0); Triglycerides 135 mg/dL
[2023-06-24 16:29] LABS: Testosterone, Free 89.9 pg/mL (35.0-155.0); Testosterone, Total 505 ng/dL (250-1100)
== END 2023-06-19 10:44 | disposition home or self-care (01) ==
LOC: HO.HMGCLDS 10:43
PROVIDERS: PCP Nurse Practitioner Family; Visit Provider Nurse Practitioner Family
DX: E78.5 Hyperlipidemia, unspecified (principal); R68.82 Decreased libido
CPT/HCPCS: 36415; 80053; 80061; 81003; 84402; 84403; 84443; 85025

== ENCOUNTER 2023-06-26 15:01 | Outpatient (AMB) | payer OTHER, SELFPAY ==
[2023-06-26 15:05] VITALS: BP 140/98; PULSE 80; O2SAT 97; BMI 29.7
--- NOTE | 2023-06-26 15:05 | A.OFFPC_ITS ---
Vital Signs 06/26/23 15:05 Height 5 ft 5 in Weight 178 lb 6 oz BMI 29.7 BP 140/98 H Blood Pressure Location Lt brachial Position Sitting Pulse 80 Pulse Source Pulse Oximeter Pulse Oximetry (%) 97 Oxygen Delivery Method Room Air Intake Visit Reasons: per Ananth follow up Allergies bee pollen [BEE STINGS] Allergy (Severe, Verified 06/26/23 15:07) Swelling Sulfa (Sulfonamide Antibiotics) [SULFA (SULFONAMIDE ANTIBIOTICS)] Allergy (Severe, Verified 06/26/23 15:07) ANAPHYLAXIS levofloxacin [From Levaquin] Allergy (Mild, Verified 06/26/23 15:07) tendonitis fenofibrate Allergy (Unknown, Verified 06/26/23 15:07) joint pain gabapentin [GABAPENTIN] Allergy (Unknown, Verified 06/26/23 15:07) RASH, HALLUCINATIONS, hallucinations Penicillins [PENICILLINS] Allergy (Unknown, Verified 06/26/23 15:07) ANAPHYLAXIS sesame oil [SESAME OIL] Allergy (Unknown, Verified 06/26/23 15:07) UNKNOWN (AND SESAME SEED) vancomycin [VANCOMYCIN] Allergy (Unknown, Verified 06/26/23 15:07) ITCHING AND REDNESS TO SKIN, itching Medication List - Last Reconciled 06/26/23 by BENJAMIN Diamond-BC amlodipine 10 mg PO DAILY 90 days atorvastatin 20 mg PO DAILY 90 days buspirone 10 mg PO DAILY 90 days epinephrine 0.3 mL IM DIRECTED finasteride 5 mg PO DAILY 90 days lidocaine 4% 1 patch topical DAILY PRN naproxen (Naprosyn) 500 mg PO Q12H PRN 30 days omega-3 acid ethyl esters 2 caps PO BID 90 days omeprazole 40 mg PO QAM pumpkin seed-soy germ-Cissus 300-150 mg as directed Tobacco use date assessed: 06/26/23 Dental Screening Dental Screen Date: 06/26/23 Did you have a dental visit in the last 12 months?: Yes Did you have a dental problem in the last 6 months where you did not have access to dental care?: No Was dental information given to patient?: Patient has dentist HPI per Ananth follow up HPI Details Pt is a newly-diagnosed diabetic, on a statin. Due for A1C and microalbumin, will order. Denies polyuria, polydipsia, and neuropathy. Pt denies any signs and symptoms of hypoglycemia and does know how to correct it. Will refer to [facility]. Will also send meter and supplies, educated on bid testing. Pt will start working on his diet. Will refer for eye exam. Will also start ARB, already on statin. Pt c/o dysphagia. He reports feelings like food is getting stuck in his throat. He does not have any difficulty with liquids. Will order barium swallow. Pt was a PPD smoker from age 14 to 57. Will refer for low-dose lung CT. [facility] Medical History Anxiety Arm paresthesia, right Arthritis of left leg BPH (benign prostatic hyperplasia) Bursitis Elevated ferritin level Facet arthritis, degenerative, L5-S1 level, lumbosacral spine GERD (gastroesophageal reflux disease) Hemochromatosis Hemorrhoids with complication Hiatal hernia Hydronephrosis Hypertension Hypertriglyceridemia IBS (irritable bowel syndrome) Insomnia Left maxillary sinusitis Lymph node enlargement Lymphadenitis Surgical History H/O left inguinal hernia repair H/O left inguinal hernia repair H/O right knee surgery H/O umbilical hernia repair History of cystoscopy History of hand surgery Hx of colonoscopy Hx of hand surgery Hx of hernia repair Hx of knee surgery Lipoma of left thigh Patellar tendon rupture Family History Brother History of colon cancer Mother History of breast cancer Father History of lung cancer Paternal Uncle History of lung cancer Maternal Grandmother History of heart attack Maternal Grandfather History of lung cancer Paternal Grandfather Cancer Other Mental health disorder Substance use disorder Social History Household Members: Spouse Housing: House Are you a primary residential child care counselor to a significant other at home: No Do you presently have visiting nurse or other home services: No Alcohol intake: current Alcohol intake frequency: a few times a month Patient Tobacco Use Status: Former Tobacco user Quit Date: 2016 Tobacco use type: Cigarette e-Cigarette/Vaping Use: Never Used Second Hand Smoke Exposure: Yes Substance Use Type: Marijuana service: No Current occupational status: employed 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 Gigi Gee, Rosalva Villarreal, Harshal Wallace and colleagues, with an educational john from [employer]. Review of Systems Const Reports as per HPI Physical exam (Primary Care) Vital Signs: Last Vital Signs Pulse 80 06/26/23 15:05 BP 140/98 H 06/26/23 15:05 Pulse Ox 97 06/26/23 15:05 Oxygen Delivery Method Room Air 06/26/23 15:05 BMI result Body Mass Index 29.7 Tobacco/Smoking Status: Tobacco use Status Tobacco use date assessed 06/26/23 06/26/23 15:10 Patient Tobacco Use Status Former Tobacco user 06/26/23 15:05 Tobacco use type Cigarette 06/26/23 15:05 e-Cigarette/Vaping Use Never Used 06/26/23 15:05 Thrive Assessment: Date of Thrive Assessment Date Thrive assessed 11/08/22 06/26/23 15:05 Const General: cooperative Orientation/consciousness: patient oriented x3 Resp Effort & Inspection: normal respiratory effort Auscultation: clear to auscultation bilaterally Cardio Rate: regular rate Rhythm: regular rhythm Heart sounds: S1 normal heart sound present and S2 normal heart sound present Neuro General: patient oriented x3 Extrem Other: bilat feet: + sensation with use of monofilament, feet intact Right lower extremity: edema (trace) Details: pitting Left lower extremity: edema (trace) Details: pitting Psych Appearance: grossly normal Mental Status: mental status grossly normal Speech and movement: Normal speech and movement present Affect: normal affect Attitude: cooperative Thought process: Normal thought process present Thought content: Normal thought content present Insight: Good insight present (Psych) Judgement: Good judgement present (Psych) Assessment and Plan Assessment & Plan (1) Dysphagia: Code(s): R13.10 - Dysphagia, unspecified Plan: Barium swallow ordered (2) Smoker: Code(s): F17.200 - Nicotine dependence, unspecified, uncomplicated Plan: Referred for low-dose CT (3) Newly diagnosed diabetes: Code(s): E11.9 - Type 2 diabetes mellitus without complications Plan: Referred to [facility], labs ordered, referred to optometry Plan The patient agreed to the use of a medical physics researcher for this encounter. Scribed for JORGE Santiago by Cintia Medrano medical physics researcher, on 06/26/2023 at 15:30 EST. Orders: Orders FL barium swallow modified Today R13.10 - Dysphagia, unspecified Hemoglobin A1c Today E11.9 - Type 2 diabetes mellitus without complications Microalbumin, Random (w Creat) Today E11.9 - Type 2 diabetes mellitus without complications Referrals Thoracic Surgery Referral F17.200 - Nicotine dependence, unspecified, uncomplicated Nurse Navigator Referral E11.9 - Type 2 diabetes mellitus without complications Optometry Referral E11.9 - Type 2 diabetes mellitus without complications Medications: New losartan 25 mg PO DAILY 90 tabs 0RF 90 days Coding Level of Care Code Est Pt Level 3 (95993) Diagnoses Dysphagia R13.10 Smoker F17.200 Newly diagnosed diabetes E11.9
== END 2023-06-26 15:45 | disposition home or self-care (01) ==
PROVIDERS: PCP Nurse Practitioner Family; Visit Provider Nurse Practitioner Family
DX: R13.10 Dysphagia, unspecified (principal); F17.200 Nicotine dependence, unspecified, uncomplicated; E11.9 Type 2 diabetes mellitus without complications
CPT/HCPCS: 99213

== ENCOUNTER 2023-07-02 15:21 | Outpatient (AMB) | payer OTHER, SELFPAY ==
--- NOTE | 2023-07-02 15:22 | MHC.OFFVIS ---
Intake Vital Signs 07/02/23 15:29 Height 5 ft 5 in Weight 176 lb BMI 29.3 BP 133/71 Blood Pressure Location Lt brachial Position Sitting Pulse 79 Intake Visit Reasons: pain at incision site Intake Note: Patient is seen in office for wound check, following pain at the incision site. Patient c/o: right groin pain for the past weeks, worse when coughing, minimal pain at the moment, tender and swollen, sore. Perianesthesia Rn Required: No Accompanied by: Self / Same As Patient Allergies bee pollen [BEE STINGS] Allergy (Severe, Verified 07/02/23 15:29) Swelling Sulfa (Sulfonamide Antibiotics) [SULFA (SULFONAMIDE ANTIBIOTICS)] Allergy (Severe, Verified 07/02/23 15:29) ANAPHYLAXIS levofloxacin [From Levaquin] Allergy (Mild, Verified 07/02/23 15:29) tendonitis fenofibrate Allergy (Unknown, Verified 07/02/23 15:29) joint pain gabapentin [GABAPENTIN] Allergy (Unknown, Verified 07/02/23 15:29) RASH, HALLUCINATIONS, hallucinations Penicillins [PENICILLINS] Allergy (Unknown, Verified 07/02/23 15:29) ANAPHYLAXIS sesame oil [SESAME OIL] Allergy (Unknown, Verified 07/02/23 15:29) UNKNOWN (AND SESAME SEED) vancomycin [VANCOMYCIN] Allergy (Unknown, Verified 07/02/23 15:29) ITCHING AND REDNESS TO SKIN, itching Medication List - Last Reconciled 07/04/23 by Ananth Olmedo MD alcohol swabs (Alcohol Pads) TID tesing topically TID; amlodipine 10 mg PO DAILY 90 days atorvastatin 20 mg PO DAILY 90 days buspirone 10 mg PO DAILY 90 days epinephrine 0.3 mL IM DIRECTED finasteride 5 mg PO DAILY 90 days FreeStyle Lancets (lancets) TID testing NS FreeStyle Lite Meter (blood-glucose meter) TID testing NS FreeStyle Lite Strips (blood sugar diagnostic) TID testing NS lidocaine 4% 1 patch topical DAILY PRN losartan 25 mg PO DAILY 90 days naproxen (Naprosyn) 500 mg PO Q12H PRN 30 days omega-3 acid ethyl esters 2 caps PO BID 90 days omeprazole 40 mg PO QAM pumpkin seed-soy germ-Cissus 300-150 mg as directed HPI HPI Comments History of Present Illness Details Patient returns for evaluation of his right inguinal incision. Last week he noticed sudden onset of severe pain in the incision which was aggravated by sneezing and coughing. He denied any inciting events. The pain lasted for approximately 3-4 days but has now resolved. He denied any palpable lump on either side. He is now retired and denied doing any heavy lifting. [facility] Medical History Anxiety Arm paresthesia, right Arthritis of left leg BPH (benign prostatic hyperplasia) Bursitis Elevated ferritin level Facet arthritis, degenerative, L5-S1 level, lumbosacral spine GERD (gastroesophageal reflux disease) Hemochromatosis Hemorrhoids with complication Hiatal hernia Hydronephrosis Hypertension Hypertriglyceridemia IBS (irritable bowel syndrome) Insomnia Left maxillary sinusitis Lymph node enlargement Lymphadenitis Surgical History H/O left inguinal hernia repair H/O left inguinal hernia repair H/O right knee surgery H/O umbilical hernia repair History of cystoscopy History of hand surgery Hx of colonoscopy Hx of hand surgery Hx of hernia repair Hx of knee surgery Lipoma of left thigh Patellar tendon rupture Family History Brother History of colon cancer Mother History of breast cancer Father History of lung cancer Paternal Uncle History of lung cancer Maternal Grandmother History of heart attack Maternal Grandfather History of lung cancer Paternal Grandfather Cancer Other Mental health disorder Substance use disorder Social History Household Members: Spouse Housing: House Are you a primary healthcare receptionist to a significant other at home: No Do you presently have visiting nurse or other home services: No Alcohol intake: current Alcohol intake frequency: a few times a month Patient Tobacco Use Status: Former Tobacco user Quit Date: 2016 Tobacco use type: Cigarette e-Cigarette/Vaping Use: Never Used Second Hand Smoke Exposure: Yes Substance Use Type: Marijuana service: No Current occupational status: employed 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 Cognitive needs: No Hearing needs: No Vision needs: No Review of Systems Const Reports body aches, Reports difficulty sleeping, Denies night sweats and Denies poor appetite Card Reports chest pain, Denies syncope, Denies rapid heart rate and Denies edema Resp Reports no additional complaints GI Reports as per HPI Musc Reports as per HPI Neuro Denies syncope Physical Exam Vital Signs: Last Vital Signs Pulse 79 07/02/23 15:29 BP 133/71 07/02/23 15:29 BMI result Body Mass Index 29.3 Const General: comfortable and no acute distress Nutritional Appearance: well nourished Orientation/consciousness: patient oriented x3 Resp Effort & Inspection: normal respiratory effort, no audible wheezes and no cough GI Other: Well-healed bilateral inguinal incisions. Palpation revealed no palpable hernia recurrence, infection or mass. No changes noted with Valsalva maneuvers. Mild tenderness noted with deep palpation in the upper outer portion of the incision but again no changes with Valsalva. Skin General skin exam: no rashes or lesions noted Neuro General: patient oriented x3 Assessment & Plan Assessment & Plan (1) Discomfort of groin: Code(s): R10.30 - Lower abdominal pain, unspecified Plan 62-year-old male patient with a previous history of bilateral inguinal hernias per returning with complaints of abdominal pain 1 week ago. The symptoms have not resolved and examination today reveals no evidence of recurrent hernia. Symptoms may have been due to sudden movement of muscular attachments to the mesh causing a muscle strain. He should follow up as needed. Coding Level of Care Code Est Pt Level 3 (45305) Diagnoses Discomfort of groin R10.30
[2023-07-02 15:29] VITALS: BP 133/71; PULSE 79; BMI 29.3
== END 2023-07-02 15:55 | disposition home or self-care (01) ==
PROVIDERS: PCP Nurse Practitioner Family; Visit Provider Surgery
DX: R10.30 Lower abdominal pain, unspecified (principal)
CPT/HCPCS: 99213

== ENCOUNTER → 2023-07-02 15:21 | Outpatient (BNVA) | payer OTHER, SELFPAY | PROVIDERS: PCP Nurse Practitioner Family; Visit Provider Surgery ==

== ENCOUNTER 2023-07-16 13:40 | Outpatient (REF) | payer OTHER, SELFPAY | END 2023-07-16 13:41 | disposition home or self-care (01) | LOC: HO.BBR 13:40 | PROVIDERS: PCP Nurse Practitioner Family; Visit Provider Internal Medicine Medical Oncology | DX: Z13.89 Encounter for screening for other disorder (principal) ==

== ENCOUNTER 2023-07-18 09:48 | Outpatient (REF) | payer OTHER, SELFPAY ==
[2023-07-18 13:21] LABS: MANUAL DIFF FLAG NO
[2023-07-18 13:29] LABS: Basophils Percent Auto 0.5 % (0-2); Eosinophils Absolute Auto 0.1 X10*3/uL (0.0-0.4); Eosinophils Percent Auto 0.9 % (0-4); Hematocrit 42.2 % (42.0-52.0); Hemoglobin 14.9 g/dl (14.0-18.0); Imm Gran Abs Auto 0.01 X10*3/uL (0.00-0.03); Imm Gran Pct Auto 0.2 % (0.0-0.4); Lymphocytes Absolute Auto 1.6 X10*3/uL (1.2-4.9); Lymphocytes Percent Auto 29.2 % (20-40); Mean Corpuscular HGB Conc 35.3 g/dl (31.0-36.0); Mean Corpuscular Hemoglobin 33.1 pg (27.0-33.0); Mean Corpuscular Volume 93.8 fL (80.0-98.0); Mean Platelet Volume 9.6 fL (9.4-12.4); Monocytes Absolute Auto 0.7 X10*3/uL (0.1-1.2); Monocytes Percent Auto 12.7 % (2-11); Neutrophils Absolute Auto 3.2 x10*3/uL (2.0-8.3); Neutrophils Percent Auto 56.5 % (45-73); Platelet Count 312 X10*3/uL (160-400); Red Cell Distribution Width 12.4 % (11.0-16.0); White Blood Count 5.6 X10*3/uL (4.8-10.8)
[2023-07-18 13:58] LABS: Alanine Aminotransferase 27 U/L (0-40); Albumin Level 4.4 g/dL (3.5-5.0); Alkaline Phosphatase 69 U/L (39-117); Anion Gap 11 (12-20); Aspartate Amino Transferase 19 U/L (5-37); Bilirubin Total 0.8 mg/dL (0.0-1.0); Blood Urea Nitrogen 17 mg/dL (9-16); Calcium 9.5 mg/dL (8.4-10.2); Carbon Dioxide 23 mmol/L (22-29); Chloride 112 mmol/L (96-108); Estimated Glomerular Filt Rate > 60; Glucose Random 115 mg/dL (60-115); Potassium 3.9 mmol/L (3.3-5.1); Sodium 142 mmol/L (135-145); Total Protein 6.7 g/dL (6.5-8.0)
== END 2023-07-18 09:49 | disposition home or self-care (01) ==
LOC: HO.HMGCLDS 09:48
PROVIDERS: PCP Nurse Practitioner Family; Visit Provider Internal Medicine Medical Oncology
DX: E83.119 Hemochromatosis, unspecified (principal)
CPT/HCPCS: 36415; 80053; 85025

== ENCOUNTER 2023-08-21 12:10 | Outpatient (REF) | payer OTHER, SELFPAY ==
[2023-08-21 14:49] LABS: Ferritin 27 ng/mL (20-250)
[2023-08-21 14:57] LABS: Iron 116 mcg/dL (45-160); Percent Iron Saturation 39 % (15-50); Total Iron Binding Capacity 295 mcg/dL (228-428); Unsaturated Iron Binding 179 ug/dL
[2023-08-22 12:38] LABS: Alpha Fetoprotein 2.5 ng/mL (<6.1)
== END 2023-08-21 12:11 | disposition home or self-care (01) ==
LOC: HO.BBR 12:10
PROVIDERS: PCP Nurse Practitioner Family; Visit Provider Internal Medicine Medical Oncology
DX: E83.110 Hereditary hemochromatosis (principal)
CPT/HCPCS: 36415; 82105; 82728; 83540

== ENCOUNTER 2023-08-30 14:58 | Outpatient (AMB) | payer OTHER, SELFPAY ==
--- NOTE | 2023-08-30 07:48 | MHC.OFFVIS ---
Intake Intake Visit Reasons: LDCT SD Allergies bee pollen [BEE STINGS] Allergy (Severe, Verified 07/22/23 12:08) Swelling Sulfa (Sulfonamide Antibiotics) [SULFA (SULFONAMIDE ANTIBIOTICS)] Allergy (Severe, Verified 07/22/23 12:08) ANAPHYLAXIS levofloxacin [From Levaquin] Allergy (Mild, Verified 07/22/23 12:08) tendonitis fenofibrate Allergy (Unknown, Verified 07/22/23 12:08) joint pain gabapentin [GABAPENTIN] Allergy (Unknown, Verified 07/22/23 12:08) RASH, HALLUCINATIONS, hallucinations Penicillins [PENICILLINS] Allergy (Unknown, Verified 07/22/23 12:08) ANAPHYLAXIS sesame oil [SESAME OIL] Allergy (Unknown, Verified 07/22/23 12:08) UNKNOWN (AND SESAME SEED) vancomycin [VANCOMYCIN] Allergy (Unknown, Verified 07/22/23 12:08) ITCHING AND REDNESS TO SKIN, itching HPI LDCT SD HPI Details Initial visit for this 63yo former smoker with a 40PYH. Patient started smoking at age 14 for 43 years at 1ppd. He quit in 2017. . Denies marijuana use. Denies second hand smoke exposure. Denies exposure to chemicals or substances like asbestos. . Reports family history of lung cancer. Dad diagnosed in his 70s. Denies personal history of cancers. Denies chest CT in last year. . Denies recent travel outside the [place]. Denies recent respiratory illness or recent hospitalization for respiratory issues. Reports testing positive for COVID in 2020. Admits receiving COVID Vaccine. x 1. . Denies fever, chills, new/worsening cough, hemoptysis, hoarseness or dysphagia. Denies significant chest pain, significant dyspnea or unintentional weight loss. Patient Lung Cancer Screening Questionnaire reviewed with patient by provider. . Shared Decision Making Completed. Patient meets criteria. Discussed in detail with patient, the risk vs benefit of LDCT screening. Patient consents to proceed with scan. Discussed and encouraged continued smoking cessation. [facility] Medical History (Updated 08/13/23 @ 12:06 by Kelly Gaston PA-C) Hemochromatosis Newly diagnosed diabetes (~2022) Hypertension Dyslipidemia Tubular adenoma of colon (~2008) Lymph node enlargement Hiatal hernia GERD (gastroesophageal reflux disease) Anxiety IBS (irritable bowel syndrome) BPH (benign prostatic hyperplasia) Insomnia Arm paresthesia, right Arthritis of left leg Facet arthritis, degenerative, L5-S1 level, lumbosacral spine COVID-19 Personal history of nicotine dependence Surgical History (Updated 08/13/23 @ 11:42 by Kelly Gaston PA-C) History of endoscopy (~2022) History of excision of lesion (~2018) History of bilateral inguinal hernia repair (~2021) History of right knee surgery (~2018) History of left inguinal hernia repair (~2018) History of umbilical hernia repair (~2018) History of colonoscopy (~2022) History of cystoscopy (~2018) History of hand surgery Family History Brother History of colon cancer Mother History of breast cancer Father History of lung cancer Paternal Uncle History of lung cancer Maternal Grandmother History of heart attack Maternal Grandfather History of lung cancer Paternal Grandfather Cancer Other Mental health disorder Substance use disorder Social History Household Members: Spouse Housing: House Are you a primary home health aide caregiver to a significant other at home: No Do you presently have visiting nurse or other home services: No Alcohol intake: current Alcohol intake frequency: a few times a month Patient Tobacco Use Status: Former Tobacco user Quit Date: 2016 Tobacco use type: Cigarette e-Cigarette/Vaping Use: Never Used Second Hand Smoke Exposure: Yes Substance Use Type: Marijuana service: No Current occupational status: employed 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 - Patient meets criteria for LDCT for lung cancer screening purposes and is asymptomatic. - Smoking cessation counseling offered. Patients can always call [phone]-Uhyb-Now. - Will arrange for a LDCT scan of the chest for screening purposes at [facility]. - Risks, benefits, and alternatives were discussed in detail and the patient agrees to proceed. - Risks discussed include but are not limited to: radiation exposure, anxiety during testing and while awaiting results, false negatives, false positives and possibility of additional intervention such as further imaging or surgical procedures for benign disease. - Benefits are obviously detection of lung cancer at an early stage which can lead to improved outcomes. - Discussed the importance of screening program compliance with adherence to yearly LDCT scan as scheduled - or sooner interval scans for personalized screening regimen. - Discussed follow up plan. Our office will send a letter discussing results and if needed set up phone call and office visit based on CT findings. - Patient educated on results categorization and the management decisions for suspicious findings potentially found on the screening LDCT scan. Any patient with a Lung RADS score of 3 or 4 will be reviewed by a multidisciplinary team at [facility] to form a plan of action in regards to scan findings. - If further work up is warranted for a suspicious lung finding this will be followed by the Lung Cancer Screening program in conjunction with the Thoracic Surgery Department at [facility]. - A copy of the office note and LDCT will be sent to the patient's PCP - as well as documentation on any associated further plans of care. - Incidental findings on LDCT are the PCP's responsibility. These findings are indicated with an S finding on the LDCT Assessment. A note discussing the findings will be sent to the PCP who is then responsible for further management. - All questions answered.? Coding Level of Care Code Lung Cancer Screening G0296 Diagnoses Personal history of nicotine dependence Z87.891
== END 2023-08-30 15:32 | disposition home or self-care (01) ==
PROVIDERS: PCP Nurse Practitioner Family; Visit Provider Physician Assistant Medical
DX: Z87.891 Personal history of nicotine dependence (principal)
CPT/HCPCS: G0296

== ENCOUNTER 2023-08-30 15:22 | Outpatient (REF) | payer OTHER, SELFPAY ==
--- NOTE | ~2023-08-30 | CT_ITS ---
EXAMINATION: CT CHEST SCREENING CLINICAL INFORMATION: Former smoker. 4080 year pack year history. Quit 6 years ago. COMPARISON: Previous chest x-ray May [address] December 2020 TECHNIQUE: Multidetector volumetric CT imaging of the chest is performed without contrast using low dose technique. Additional 2D coronal and sagittal reformatted images and axial 3D maximum intensity projection (MIP) images are generated on the CT workstation. This CT examination was performed using dose optimization techniques as appropriate, variously including the following: *Automated exposure control *Adjustment of mA and/or kV according to patient size (this includes techniques or standardized protocols for targeted exams where dose is matched to indication/reason for exam; i.e. extremities or head) *Use of iterative reconstruction technique DLP: 51 mGy-cm FINDINGS: LUNGS: There are areas of scarring or subsegmental atelectasis seen at the right lung apex and both lower lobes. The lungs are otherwise clear. No evidence of emphysema interstitial lung disease or bronchiectasis. No endobronchial or endotracheal lesion. MEDIASTINUM: The mediastinum is normal. CORONARY ARTERY CALCIFICATION: Mild PLEURA: There is no pleural effusion. No pleural mass or thickening. AXILLA: No lymphadenopathy. Right infraspinatus muscle lipoma. UPPER ABDOMEN: Unremarkable OSSEOUS STRUCTURES: Unremarkable. CT/CT lung screening IMPRESSION: Areas of linear scarring or subsegmental atelectasis. ASSESSMENT: Lung-RADS category 1: Negative RECOMMENDATION: Annual low-dose chest CT follow-up recommended
== END 2023-08-30 15:23 | disposition home or self-care (01) ==
LOC: HO.CT 15:22
PROVIDERS: PCP Nurse Practitioner Family; Visit Provider Physician Assistant Medical
DX: Z12.2 Encounter for screening for malignant neoplasm of respiratory organs (principal); Z87.891 Personal history of nicotine dependence
CPT/HCPCS: 71271; G0296

== ENCOUNTER 2023-09-20 10:25 | Outpatient (AMB) | payer OTHER, SELFPAY ==
--- NOTE | 2023-09-20 10:56 | A.OFFVIS_ITS ---
Intake Intake Visit Reasons: 6m follow up Intake Note: Patient is Present for Follow Up Urology Medication: Finasteride, Antibiotic Allergies: Sulfa, Levofloxacin, Penicillin, Vancomycin Blood Thinners: None PVR: 55 Compliants: Patient has been having a lot of frequency issues and he feels the finasteride is not helping Allergies bee pollen [BEE STINGS] Allergy (Severe, Verified 09/20/23 11:02) Swelling Sulfa (Sulfonamide Antibiotics) [SULFA (SULFONAMIDE ANTIBIOTICS)] Allergy (Severe, Verified 09/20/23 11:02) ANAPHYLAXIS levofloxacin [From Levaquin] Allergy (Mild, Verified 09/20/23 11:02) tendonitis fenofibrate Allergy (Unknown, Verified 09/20/23 11:02) joint pain gabapentin [GABAPENTIN] Allergy (Unknown, Verified 09/20/23 11:02) RASH, HALLUCINATIONS, hallucinations Penicillins [PENICILLINS] Allergy (Unknown, Verified 09/20/23 11:02) ANAPHYLAXIS sesame oil [SESAME OIL] Allergy (Unknown, Verified 09/20/23 11:02) UNKNOWN (AND SESAME SEED) vancomycin [VANCOMYCIN] Allergy (Unknown, Verified 09/20/23 11:02) ITCHING AND REDNESS TO SKIN, itching HPI HPI Comments History of Present Illness Details Sean is a pleasant male. He is a patient of Dr. North. He presents with the following urologic conditions - inguinal disruption left side - prostatitis - lower urinary tract symptoms Had recent prostatitis flare Still with symptoms Plan Microgen Anti-inflammatory prescribed Boggy left side prostate on JAIRO Continue stable prostate with finasteride 3 times a week and pumpkin seed Prostatitis Chronic prostatitis Ongoing since 2018 Last episode responded well to combination therapy Current therapy finasteride PSA 04/24 0.9, 04/25 0.5 Prior response to levaquin - developed tendonitis Continue surveillance Inguinal disruption Prior pain on left inguinal canal Improved with self-care instructions [facility] Medical History Hemochromatosis Newly diagnosed diabetes (~2022) Hypertension Dyslipidemia Tubular adenoma of colon (~2008) Lymph node enlargement Hiatal hernia GERD (gastroesophageal reflux disease) Anxiety IBS (irritable bowel syndrome) BPH (benign prostatic hyperplasia) Insomnia Arm paresthesia, right Arthritis of left leg Facet arthritis, degenerative, L5-S1 level, lumbosacral spine COVID-19 Personal history of nicotine dependence Surgical History History of endoscopy (~2022) History of excision of lesion (~2018) History of bilateral inguinal hernia repair (~2021) History of right knee surgery (~2018) History of left inguinal hernia repair (~2018) History of umbilical hernia repair (~2018) History of colonoscopy (~2022) History of cystoscopy (~2018) History of hand surgery Family History Brother History of colon cancer Mother History of breast cancer Father History of lung cancer Paternal Uncle History of lung cancer Maternal Grandmother History of heart attack Maternal Grandfather History of lung cancer Paternal Grandfather Cancer Other Mental health disorder Substance use disorder Social History Household Members: Spouse Housing: House Are you a primary field care advocate to a significant other at home: No Do you presently have visiting nurse or other home services: No Alcohol intake: current Alcohol intake frequency: a few times a month Patient Tobacco Use Status: Former Tobacco user Quit Date: 2016 Tobacco use type: Cigarette e-Cigarette/Vaping Use: Never Used Second Hand Smoke Exposure: Yes Substance Use Type: Marijuana service: No Current occupational status: employed 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 Cognitive needs: No Hearing needs: No Vision needs: No Review of Systems Const Denies chills and Denies fever(s) Card Reports no additional complaints and Denies syncope Resp Denies cough GI Denies abdominal pain and Denies heartburn Reports as per HPI and Denies change in libido Neuro Denies syncope Psych Denies change in libido Endo Denies change in libido Physical Exam Const General: cooperative, healthy appearing, comfortable and no acute distress Orientation/consciousness: patient oriented x3 HEENT Face and sinus: Yes normal facial exam Mouth: moist mucous membranes Neck Neck: Yes normal visual inspection, Yes full ROM and Yes trachea midline Chest Chest palpation & inspection: normal inspection of the chest Resp Effort & Inspection: normal respiratory effort, able to speak in complete sentences and no respiratory distress GI Inspection: Yes normal to inspection Rectal Exam - Male: Yes normal sphincter tone and Yes prostate normal Male General Exam: Yes normal external exam Penis: normal penis and circumcised Meatus: meatus normal Scrotum: scrotum normal Testes: Testes normal Back/Spine/Pelvis Cervical Spine: normal cervical lordosis Thoracic/Lumbar Spine: thoracic and lumbar spine normal to inspection Skin General skin exam: no rashes or lesions noted Neuro General: patient oriented x3, gait normal, tone normal and moves all extremities Extrem General: Yes normal to inspection and Yes capillary refill normal Office Procedures Post Void Residual Post Residual Void Post Void Residual (PVR): 55 07602-Hjve Void Residual by ultrasound Results AMB Urinalysis, Automated UA Leukoctes 0 Colleen/uL Last Edit by Maricruz Iglesias [facility] on 09/20/23 11:09 UA Nitrite Negative Last Edit by Maricruz Iglesias A on 09/20/23 11:09 UA Urobilinogen 0.2 mg/dL Last Edit by Maricruz Iglesias A on 09/20/23 11:0 9 UA Protein 0 mg/dL Last Edit by Maricruz Iglesias A on 09/20/23 11:09 UA pH 6.5 Last Edit by Maricruz Iglesias A on 09/20/23 11:09 UA Blood 0 Hardy/uL Last Edit by Maricruz Iglesias [facility] on 09/20/23 11:09 UA Specific [place] 1.010 Last Edit by Maricruz Iglesias A on 09/20/23 11: 09 UA Ketone Negative Last Edit by Maricruz Iglesias A on 09/20/23 11:09 UA Bilirubin 0 mg/dL Last Edit by Maricruz Iglesias A on 09/20/23 11:09 UA Glucose 0 mg/dL Last Edit by Maricruz Iglesias A on 09/20/23 11:09 Results Reviewed Results Reviewed: Laboratory Last Values Urine pH (Auto) 6.5 09/20/23 11:08 Specific [place] (Auto) 1.010 09/20/23 11:08 Urine Protein (Auto) 0 mg/dL 09/20/23 11:08 Glucose (UA)(Auto) 0 mg/dL 09/20/23 11:08 Urine Ketones (Auto) Negative 09/20/23 11:08 Urine Blood (Auto) 0 Hardy/uL 09/20/23 11:08 Urine Nitrite (Auto) Negative 09/20/23 11:08 Urine Bilirubin (Auto) 0 mg/dL 09/20/23 11:08 Urine Urobilinogen (Auto) 0.2 mg/dL 09/20/23 11:08 Leukocyte Esterase (Auto) 0 Colleen/uL 09/20/23 11:08 Assessment & Plan Assessment & Plan (1) Prostatitis: Comment: Longstanding, continue all meds recently prescribed Code(s): N41.9 - Inflammatory disease of prostate, unspecified (2) BPH (benign prostatic hyperplasia): Code(s): N40.0 - Benign prostatic hyperplasia without lower urinary tract symptoms Plan Microgen Orders: Orders AMB Urinalysis Automated Today Z13.9 - Encounter for screening, unspecified AMB Post Void Residual by ultrasound Today N40.0 - Benign prostatic hyperplasia without lower urinary tract symptoms Medications: New meloxicam 15 mg PO DAILY 30 days 30 tabs 0RF N41.9 - Inflammatory disease of prostate, unspecified Patient Instructions: Imaging studies, laboratory and physical exam results were discussed and reviewed in detail. No major barriers to patient understanding were identified. An opportunity to ask questions regarding the treatment plan was provided. All questions were answered. The patient expressed understanding and agreement with the above treatment plan. The patient is aware they should contact our office by phone for worsening of their current condition or the appearance of new urologic symptoms. Compliance is encouraged with any medications and followup testing that is ordered. It is a privilege to participate in the urologic care of your patient. If you have any questions or concerns regarding treatment for the above conditions, or other urologic issues, please do not hesitate to contact me. The office telephone contact is [phone]. This note is constructed using voice recognition software. While every effort has been made to ensure accuracy agricultural specialist errors may have been included. Yours sincerely, Dr Jeff Ndiaye MD, [facility] - Urology Providers of Expert, Compassionate Care for the Genitourinary System Coding Level of Care Code Est Pt Level 4 (86397) Diagnoses Prostatitis N41.9 BPH (benign prostatic hyperplasia) N40.0 CPT Codes Post Residual Void - PVR CPT Code: 74718-Bemf Void Residual by ultrasound ([id number])
== END 2023-09-20 11:33 | disposition home or self-care (01) ==
PROVIDERS: Visit Provider Urology
DX: N41.9 Inflammatory disease of prostate, unspecified (principal); N40.0 Benign prostatic hyperplasia without lower urinary tract symptoms; Z13.9 Encounter for screening, unspecified
CPT/HCPCS: 99214

== ENCOUNTER → 2023-09-20 10:25 | Outpatient (BNVA) | payer OTHER, SELFPAY | PROVIDERS: Visit Provider Urology | DX: N40.1 Benign prostatic hyperplasia with lower urinary tract symptoms (principal); N13.8 Other obstructive and reflux uropathy; N41.9 Inflammatory disease of prostate, unspecified; Z79.899 Other long term (current) drug therapy | CPT/HCPCS: 51798; 81003 ==

== ENCOUNTER 2023-09-25 11:08 | Outpatient (REF) | payer OTHER, SELFPAY | END 2023-09-25 11:09 | disposition home or self-care (01) | LOC: HO.BBR 11:08 | PROVIDERS: PCP Nurse Practitioner Family; Visit Provider Internal Medicine Medical Oncology | DX: Z13.89 Encounter for screening for other disorder (principal) ==

== ENCOUNTER 2023-10-23 08:20 | Outpatient (AMB) | payer OTHER, SELFPAY ==
--- NOTE | 2023-10-23 08:21 | MHC.PC.OV ---
Vital Signs 10/23/23 08:25 Weight 162 lb BP 130/98 H Blood Pressure Location Lt brachial Position Sitting Pulse 74 Pulse Source Pulse Oximeter Pulse Oximetry (%) 97 Oxygen Delivery Method Room Air Intake Visit Reasons: Follow up Intake Note: Patient his here today to follow up on new dx of diabetes. Allergies bee pollen [BEE STINGS] Allergy (Severe, Verified 10/23/23 08:46) Swelling Sulfa (Sulfonamide Antibiotics) [SULFA (SULFONAMIDE ANTIBIOTICS)] Allergy (Severe, Verified 10/23/23 08:46) ANAPHYLAXIS levofloxacin [From Levaquin] Allergy (Mild, Verified 10/23/23 08:46) tendonitis fenofibrate Allergy (Unknown, Verified 10/23/23 08:46) joint pain gabapentin [GABAPENTIN] Allergy (Unknown, Verified 10/23/23 08:46) RASH, HALLUCINATIONS, hallucinations Penicillins [PENICILLINS] Allergy (Unknown, Verified 10/23/23 08:46) ANAPHYLAXIS sesame oil [SESAME OIL] Allergy (Unknown, Verified 10/23/23 08:46) UNKNOWN (AND SESAME SEED) vancomycin [VANCOMYCIN] Allergy (Unknown, Verified 10/23/23 08:46) ITCHING AND REDNESS TO SKIN, itching Medication List - Last Reconciled 10/23/23 by BENJAMIN Diamond-CHELI alcohol swabs (Alcohol Pads) TID tesing topically TID; amlodipine 10 mg PO DAILY 90 days atorvastatin 20 mg PO DAILY 90 days blood-glucose sensor (FreeStyle Brinda 3 Sensor device) 2x a month buspirone 10 mg PO DAILY 90 days epinephrine 0.3 mL IM DIRECTED finasteride 5 mg orally Saturday, Saturday, Saturday schedule; FreeStyle Lancets (lancets) TID testing NS FreeStyle Lite Meter (blood-glucose meter) TID testing NS FreeStyle Lite Strips (blood sugar diagnostic) TID testing NS lidocaine 4% 1 patch topical DAILY PRN losartan 25 mg PO DAILY 90 days meloxicam 15 mg PO DAILY 30 days omega-3 acid ethyl esters 2 caps PO BID 90 days omeprazole 40 mg PO QAM pumpkin seed-soy germ-Cissus 300-150 mg as directed Tobacco use date assessed: 06/26/23 HPI Follow up HPI Details Pt is a diabetic, on a statin. A1C in office today is 5.9. Due for microalbumin. Denies polyuria, polydipsia, and neuropathy. Pt denies any signs and symptoms of hypoglycemia and does know how to correct it. Eye exam is up to date. Pt's average blood sugar for the last month is 130. Pt reports not being on losartan, will have pt restart this. Pt c/o insomnia. He reports that he has not slept the past few days. Will send zolpidem 5mg. HTN: pt has not been taking his losartan, reinforced he should restart this. [facility] Medical History Hemochromatosis Newly diagnosed diabetes (~2022) Hypertension Dyslipidemia Tubular adenoma of colon (~2008) Lymph node enlargement Hiatal hernia GERD (gastroesophageal reflux disease) Anxiety IBS (irritable bowel syndrome) BPH (benign prostatic hyperplasia) Insomnia Arm paresthesia, right Arthritis of left leg Facet arthritis, degenerative, L5-S1 level, lumbosacral spine COVID-19 Personal history of nicotine dependence Surgical History History of endoscopy (~2022) History of excision of lesion (~2018) History of bilateral inguinal hernia repair (~2021) History of right knee surgery (~2018) History of left inguinal hernia repair (~2018) History of umbilical hernia repair (~2018) History of colonoscopy (~2022) History of cystoscopy (~2018) History of hand surgery Family History Brother History of colon cancer Mother History of breast cancer Father History of lung cancer Paternal Uncle History of lung cancer Maternal Grandmother History of heart attack Maternal Grandfather History of lung cancer Paternal Grandfather Cancer Other Mental health disorder Substance use disorder Social History Household Members: Spouse Housing: House Are you a primary residential care facility manager to a significant other at home: No Do you presently have visiting nurse or other home services: No Alcohol intake: current Alcohol intake frequency: a few times a month Comment: previously medicated Patient Tobacco Use Status: Former Tobacco user Quit Date: 2016 Tobacco use type: Cigarette e-Cigarette/Vaping Use: Never Used Second Hand Smoke Exposure: Yes Substance Use Type: Marijuana service: No Current occupational status: employed 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 Gigi Gee, Rosalva Villarreal, Harshal Wallace and colleagues, with an educational john from [employer]. Review of Systems Const Reports as per HPI Physical exam (Primary Care) Vital Signs: Last Vital Signs Pulse 74 10/23/23 08:25 BP 130/98 H 10/23/23 08:25 Pulse Ox 97 10/23/23 08:25 Oxygen Delivery Method Room Air 10/23/23 08:25 Tobacco/Smoking Status: Tobacco use Status Tobacco use date assessed 06/26/23 10/23/23 08:22 Patient Tobacco Use Status Former Tobacco user 10/23/23 08:22 Tobacco use type Cigarette 10/23/23 08:22 e-Cigarette/Vaping Use Never Used 10/23/23 08:22 Thrive Assessment: Date of Thrive Assessment Date Thrive assessed 11/08/22 10/23/23 08:22 Const General: cooperative Orientation/consciousness: patient oriented x3 Resp Effort & Inspection: normal respiratory effort Auscultation: clear to auscultation bilaterally Cardio Rate: regular rate Rhythm: regular rhythm Heart sounds: S1 normal heart sound present and S2 normal heart sound present Neuro General: patient oriented x3 Extrem Other: bilat feet: + sensation with use of monofilament Psych Appearance: grossly normal Mental Status: mental status grossly normal Speech and movement: Normal speech and movement present Affect: normal affect Attitude: cooperative Thought process: Normal thought process present Thought content: Normal thought content present Insight: Good insight present (Psych) Judgement: Good judgement present (Psych) Results AMB Hemoglobin A1c AMB Hemoglobin A1c 5.9 % Last Edit by DALI Sherwood on 10/23/23 08:52 Immunizations pneumoc 20-shiva conj-dip cr(PF) 0.5 mL IM syringe Performing Provider: JORGE Diamond Performing Location: [facility] Administered by: DALI hSerwood on 10/23/23 09:18 Dose Route Admin Location Dispensed Lot Number Expiration Date NDC Program Eligibility Specialist 0.5 mL IM Right Deltoid 0.5 mL [id number] 01/01/25 8466-8652-30 Regroup Therapy/Operative Media VIS Given Date VIS Provided VIS Publication Date 10/23/23 Single Vaccine 21 Eligibility Eligibility Date Funding Source Not [facility] Eligible 10/23/23 Private Results Reviewed Results Reviewed: Laboratory Last Values Hgb A1c (Clinic) 5.9 % (4.0-6.0) 10/23/23 08:51 Assessment and Plan Assessment & Plan (1) Type 2 diabetes mellitus: Onset Date: ~2022 Comment: (DM2- dx 2022) Code(s): E11.9 - Type 2 diabetes mellitus without complications Plan: Labs ordered (2) Hypertension: Code(s): I10 - Essential (primary) hypertension (3) Insomnia: Code(s): G47.00 - Insomnia, unspecified Plan The patient agreed to the use of a medical record transcriber for this encounter. Scribed for JORGE Santiago by Cintia Medrano medical record transcriber, on 10/23/2023 at 08:35 EST. Orders: Orders Complete Blood Count Auto Diff Today E11.9 - Type 2 diabetes mellitus without complications Comprehensive [place]. Panel Fast Today E11.9 - Type 2 diabetes mellitus without complications Lipid Panel Today E11.9 - Type 2 diabetes mellitus without complications Microalbumin, Random (w Creat) Today E11.9 - Type 2 diabetes mellitus without complications Pneumococcal 20 Immunization Today Z23 - Encounter for immunization TSH reflex Free T4 Today E11.9 - Type 2 diabetes mellitus without complications UA CC w/rflx Micro + Cult Today E11.9 - Type 2 diabetes mellitus without complications AMB Hemoglobin A1c Today Z13.9 - Encounter for screening, unspecified Medications: New zolpidem may repeat once if no response in 30-60 minutes 5 mg PO BEDTIME 30 tabs 0RF pneumoc 20-shiva conj-dip cr(PF) 0.5 mL IM ONCE 0.5 mL 0RF Z23 - Encounter for immunization Refilled losartan 25 mg PO DAILY 90 days 90 tabs 0RF Coding Level of Care Code Est Pt Level 3 (83318) Diagnoses Type 2 diabetes mellitus E11.9 Hypertension I10 Insomnia G47.00
[2023-10-23 08:25] VITALS: BP 130/98; PULSE 74; O2SAT 97
== END 2023-10-23 10:10 | disposition home or self-care (01) ==
PROVIDERS: PCP Nurse Practitioner Family; Visit Provider Nurse Practitioner Family
DX: E11.9 Type 2 diabetes mellitus without complications (principal); I10 Essential (primary) hypertension; G47.00 Insomnia, unspecified; Z23 Encounter for immunization
CPT/HCPCS: 83036; 90471; 90677; 99213

== ENCOUNTER 2023-10-24 11:00 | Outpatient (RCR) | payer OTHER, SELFPAY ==
--- NOTE | 2023-08-22 12:11 | MHC.PT.EP ---
[facility] [place] Office [place] Office [place] Office [address] Velasquez Hernandez [address] [phone] F: [phone] F: [phone] F: [phone] F: [phone] Physical Therapy Plan of Care Date of Evaluation: 08/22/23 Date of Surgery: 2019, Diagnosis: Pelvic and perineal pain Unspecified inguinal hernia, without obstruction or gangrene, not specified as recurrent inguinal pain deep tissue Assessment: Wyatt is a 63 year old male who is referred to PT for Pelvic and perineal pain, Unspecified inguinal hernia, without obstruction or gangrene, not specified as recurrent inguinal pain deep tissue . He reports of having pain in L testicle, penis, L groin and occasional pain in R jacinto after having 3 hernia repair surgeries over the last 3 years for the L side and one surgery for R side last year. He also has diagnosis of enlarged prostate which results in frequent urination. In addition he was diagnosed with prostitis after his first hernia repair and during the flare ups (2-3/year) he has increased urgency and frequency and pain. He denies having any issues with bowel or sexual functions. He lives with is family and is independent with ADLS. He is retired. He would benefit from skilled PT to address the aforementioned impairments and improve tolerance to functional activities PT STATED A THE END OF THE EVAL THAT HE IS TRAVELING TO [place] FOR THE WINTER AND IS LEAVING IN 2 WEEKS. HE WILL RETURN IN JANUARY. PT MIGHT NOT BE ABLE TO ATTEND PT AFTER 2 WEEKS. Frequency and Duration: The patient will be seen 1/week for 8 weeks. Short Term Goals: 1. Lumbar, B LE and pelvic floor examination will be done in 2 weeks. 2. Pt will be able to state at least 3 urge suppression techniques and will void no more than 8/day in 3 weeks. Usp Goals: 1. Pt will report of having 50% decrease in pain which will enable him to sneeze, bend and push without pain in 5 weeks. 2. Pt will demonstrate improved pressure management and lifting techniques in 7 weeks. 3. Pt will be independent with [facility] for symptom management and maintenance following d/c in 8 weeks. Treatment Plan: Modalities to reduce pain, spasms and effusion. Manual therapy to restore motion and function. Therapeutic exercise to improve strength and flexibility. Neuromuscular re-education for posture and balance. Therapeutic activities to return to functional activities of daily living. Electronically signed by: Please sign and return to therapist. Thank you for your referral.
--- NOTE | 2023-11-18 15:23 | MHC.PT.DC ---
[facility] [place] Office [place] Office [place] Office [address] Velasquez Hernandez [address] [phone] F: [phone] F: [phone] F: [phone] F: [phone] Physical Therapy Discharge Report Diagnosis: Pelvic and perineal pain Unspecified inguinal hernia, without obstruction or gangrene, not specified as recurrent inguinal pain deep tissue Date of Surgery: 2019, Date of Evaluation: 08/22/23 Date of Discharge: 11/18/23 Treatments to Date: 6 Cancellations to Date: 0 No Shows to Date: Discharge Status: Discharge Summary: Wyatt arrived for his last appointment stating he is feeling significantly better. He had milking the prostate procedure about 1 month back and then was on antibiotics for about 2 weeks as the test revealed presence of UTI. Post procedure he still continued with external STM using a massage gun. These techniques have helped him and he has now been painfree. He was going to trial self release at home and return to PT in case his symptoms return. He has not returned to PT in last 4 weeks. He is therefore being d/c from PT. Electronically signed by: Cora Stephens PT DPT Please sign and return to therapist. Thank you for your referral.
== END 2023-11-18 15:24 | disposition home or self-care (01) ==
LOC: HO.PT 11:00
PROVIDERS: PCP Nurse Practitioner Family; Visit Provider Urology
DX: R10.2 Pelvic and perineal pain (principal); K40.90 Unilateral inguinal hernia, without obstruction or gangrene, not specified as recurrent
CPT/HCPCS: 97110; 97112; 97140; 97162

== ENCOUNTER 2023-10-24 12:08 | Outpatient (REF) | payer OTHER, SELFPAY | END 2023-10-24 12:09 | disposition home or self-care (01) | LOC: HO.BBR 12:08 | PROVIDERS: PCP Nurse Practitioner Family; Visit Provider Internal Medicine Medical Oncology | DX: Z13.89 Encounter for screening for other disorder (principal) ==

== ENCOUNTER 2023-11-26 13:01 | Outpatient (AMB) | payer OTHER, SELFPAY ==
--- NOTE | 2023-11-26 13:16 | MHC.OFFVIS ---
Intake Intake Visit Reasons: Penile Issues Intake Note: Patient is Present for Penile Issues Urology Medication: Finasteride Antibiotic Allergies: Penicillin, Sulfa, Levofloxacin,Vancomycin Blood Thinners:None Allergies bee pollen [BEE STINGS] Allergy (Severe, Verified 11/26/23 13:22) Swelling Sulfa (Sulfonamide Antibiotics) [SULFA (SULFONAMIDE ANTIBIOTICS)] Allergy (Severe, Verified 11/26/23 13:22) ANAPHYLAXIS levofloxacin [From Levaquin] Allergy (Mild, Verified 11/26/23 13:22) tendonitis fenofibrate Allergy (Unknown, Verified 11/26/23 13:22) joint pain gabapentin [GABAPENTIN] Allergy (Unknown, Verified 11/26/23 13:22) RASH, HALLUCINATIONS, hallucinations Penicillins [PENICILLINS] Allergy (Unknown, Verified 11/26/23 13:22) ANAPHYLAXIS sesame oil [SESAME OIL] Allergy (Unknown, Verified 11/26/23 13:22) UNKNOWN (AND SESAME SEED) vancomycin [VANCOMYCIN] Allergy (Unknown, Verified 11/26/23 13:22) ITCHING AND REDNESS TO SKIN, itching HPI HPI Comments History of Present Illness Details Sean is a pleasant male. He is a patient of Dr. North. He presents with the following urologic conditions - inguinal disruption left side - prostatitis - lower urinary tract symptoms 80% improved Self start medications provided Has issue of balanitis so betamethasone provided Continue stable prostate with finasteride 3 times a week and pumpkin seed Prostatitis Chronic prostatitis Ongoing since 2018 Last episode responded well to combination therapy Current therapy finasteride PSA 04/24 0.9, 04/25 0.5 Prior response to levaquin - developed tendonitis Microgen 09/26 Broad positivity primarily gram + Inguinal disruption Prior pain on left inguinal canal Improved with self-care instructions [facility] Medical History Hemochromatosis Newly diagnosed diabetes (~2022) Hypertension Dyslipidemia Tubular adenoma of colon (~2008) Lymph node enlargement Hiatal hernia GERD (gastroesophageal reflux disease) Anxiety IBS (irritable bowel syndrome) BPH (benign prostatic hyperplasia) Insomnia Arm paresthesia, right Arthritis of left leg Facet arthritis, degenerative, L5-S1 level, lumbosacral spine COVID-19 Personal history of nicotine dependence Surgical History History of endoscopy (~2022) History of excision of lesion (~2018) History of bilateral inguinal hernia repair (~2021) History of right knee surgery (~2018) History of left inguinal hernia repair (~2018) History of umbilical hernia repair (~2018) History of colonoscopy (~2022) History of cystoscopy (~2018) History of hand surgery Family History Brother History of colon cancer Mother History of breast cancer Father History of lung cancer Paternal Uncle History of lung cancer Maternal Grandmother History of heart attack Maternal Grandfather History of lung cancer Paternal Grandfather Cancer Other Mental health disorder Substance use disorder Social History Household Members: Spouse Housing: House Are you a primary health care analyst to a significant other at home: No Do you presently have visiting nurse or other home services: No Alcohol intake: current Alcohol intake frequency: a few times a month Comment: previously medicated Patient Tobacco Use Status: Former Tobacco user Quit Date: 2016 Tobacco use type: Cigarette e-Cigarette/Vaping Use: Never Used Second Hand Smoke Exposure: Yes Substance Use Type: Marijuana service: No Current occupational status: employed 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 Cognitive needs: No Hearing needs: No Vision needs: No Review of Systems Const Denies chills and Denies fever(s) Card Reports no additional complaints and Denies syncope Resp Denies cough GI Denies abdominal pain and Denies heartburn Reports as per HPI and Denies change in libido Neuro Denies syncope Psych Denies change in libido Endo Denies change in libido Physical Exam Const General: cooperative, healthy appearing, comfortable and no acute distress Orientation/consciousness: patient oriented x3 HEENT Face and sinus: Yes normal facial exam Mouth: moist mucous membranes Neck Neck: Yes normal visual inspection, Yes full ROM and Yes trachea midline Chest Chest palpation & inspection: normal inspection of the chest Resp Effort & Inspection: normal respiratory effort, able to speak in complete sentences and no respiratory distress GI Inspection: Yes normal to inspection Back/Spine/Pelvis Cervical Spine: normal cervical lordosis Thoracic/Lumbar Spine: thoracic and lumbar spine normal to inspection Skin General skin exam: no rashes or lesions noted Neuro General: patient oriented x3, gait normal, tone normal and moves all extremities Extrem General: Yes normal to inspection and Yes capillary refill normal Assessment & Plan Assessment & Plan (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 No major barriers to patient understanding were identified. An opportunity to ask questions regarding the treatment plan was provided. All questions were answered. The patient expressed understanding and agreement with the above treatment plan. The patient is aware they should contact our office by phone for worsening of their current condition or the appearance of new urologic symptoms. Compliance is encouraged with any medications and followup testing that is ordered. It is a privilege to participate in the urologic care of your patient. If you have any questions or concerns regarding treatment for the above conditions, or other urologic issues, please do not hesitate to contact me. The office telephone contact is [phone]. This note is constructed using voice recognition software. While every effort has been made to ensure accuracy metal furniture assembler errors may have been included. Yours sincerely, Dr Jeff Ndiaye MD, [facility] - Urology Providers of Expert, Compassionate Care for the Genitourinary System Coding Level of Care Code Est Pt Level 4 (91210) Diagnoses Penile anomalies Q55.69
== END 2023-11-26 13:49 | disposition home or self-care (01) ==
PROVIDERS: PCP Nurse Practitioner Family; Visit Provider Urology
DX: Q55.69 Other congenital malformation of penis (principal); N41.9 Inflammatory disease of prostate, unspecified; R10.32 Left lower quadrant pain
CPT/HCPCS: 99214

== ENCOUNTER → 2023-11-26 13:01 | Outpatient (BNVA) | payer OTHER, SELFPAY | PROVIDERS: PCP Nurse Practitioner Family; Visit Provider Urology ==

== ENCOUNTER 2023-11-28 10:57 | Outpatient (REF) | payer OTHER, SELFPAY ==
[2023-11-28 14:51] LABS: Iron 64 mcg/dL (45-160); Percent Iron Saturation 21 % (15-50); Total Iron Binding Capacity 301 mcg/dL (228-428); Unsaturated Iron Binding 237 ug/dL
[2023-11-28 14:54] LABS: Ferritin 17 ng/mL (20-250)
[2023-11-29 13:44] LABS: Alpha Fetoprotein 2.9 ng/mL (<6.1)
== END 2023-11-28 10:58 | disposition home or self-care (01) ==
LOC: HO.BBR 10:57
PROVIDERS: PCP Nurse Practitioner Family; Visit Provider Internal Medicine Medical Oncology
DX: E83.110 Hereditary hemochromatosis (principal)
CPT/HCPCS: 36415; 82105; 82728; 83540

== ENCOUNTER 2024-02-03 08:45 | Outpatient (REF) | payer OTHER, SELFPAY ==
[2024-02-03 10:12] LABS: MANUAL DIFF FLAG NO
[2024-02-03 10:26] LABS: Basophils Absolute Auto 0.1 X10*3/uL (0.0-0.2); Basophils Percent Auto 0.9 % (0-2); Eosinophils Absolute Auto 0.1 X10*3/uL (0.0-0.4); Eosinophils Percent Auto 1.1 % (0-4); Hematocrit 44.3 % (42.0-52.0); Imm Gran Abs Auto 0.01 X10*3/uL (0.00-0.03); Imm Gran Pct Auto 0.2 % (0.0-0.4); Lymphocytes Absolute Auto 1.7 X10*3/uL (1.2-4.9); Lymphocytes Percent Auto 32.4 % (20-40); Mean Corpuscular HGB Conc 33.9 g/dl (31.0-36.0); Mean Corpuscular Hemoglobin 31.3 pg (27.0-33.0); Mean Corpuscular Volume 92.3 fL (80.0-98.0); Monocytes Absolute Auto 0.5 X10*3/uL (0.1-1.2); Neutrophils Absolute Auto 2.9 x10*3/uL (2.0-8.3); Neutrophils Percent Auto 55.4 % (45-73); Platelet Count 305 X10*3/uL (160-400); Red Cell Distribution Width 14.3 % (11.0-16.0); White Blood Count 5.3 X10*3/uL (4.8-10.8)
[2024-02-03 10:44] LABS: Alanine Aminotransferase 52 U/L (0-40); Albumin Level 4.2 g/dL (3.5-5.0); Alkaline Phosphatase 56 U/L (39-117); Anion Gap 12 (12-20); Aspartate Amino Transferase 28 U/L (5-37); Bilirubin Total 0.7 mg/dL (0.0-1.0); Blood Urea Nitrogen 14 mg/dL (9-16); Calcium 8.9 mg/dL (8.4-10.2); Carbon Dioxide 24 mmol/L (22-29); Chloride 108 mmol/L (96-108); Cholesterol 145 mg/dL (<200); Estimated Glomerular Filt Rate > 60; Glucose Fasting 132 mg/dL (60-99); HDL Cholesterol 41 mg/dL (>40); LDL Cholesterol Calculated 77 mg/dL (<100); Potassium 3.9 mmol/L (3.3-5.1); Sodium 140 mmol/L (135-145); Total Protein 6.8 g/dL (6.5-8.0); Triglycerides 138 mg/dL (<150)
[2024-02-03 10:50] LABS: TSH reflex Free T4 1.95 uIU/mL (0.32-4.0)
[2024-02-03 10:56] LABS: Appearance Urine Clear; Color Urine Yellow; Glucose Urine UA Negative (Negative); Leukocyte Esterase Urine Negative (Negative); Nitrite Urine Negative (Negative); PH 6.5 (5.0-9.0); Specific Gravity - Urine 1.015 (1.005-1.025); Urine Blood Negative (Negative); Urine Ketones Negative (Negative); Urine Protein Negative (Neg-Trace)
[2024-02-03 11:04] LABS: Creatinine Urine 75.66 mg/dL; Microalbum/Creatinine Ratio Ur 6.6 ug/mg cr (<30)
== END 2024-02-03 08:46 | disposition home or self-care (01) ==
LOC: HO.HMGCLDS 08:45
PROVIDERS: PCP Nurse Practitioner Family; Visit Provider Nurse Practitioner Family
DX: E11.9 Type 2 diabetes mellitus without complications (principal)
CPT/HCPCS: 36415; 80053; 80061; 81003; 82043; 82570; 84443; 85025

== ENCOUNTER 2024-02-03 14:02 | Outpatient (REF) | payer OTHER, SELFPAY ==
[2024-02-03 15:41] LABS: Iron 97 mcg/dL (45-160); Percent Iron Saturation 33 % (15-50); Total Iron Binding Capacity 296 mcg/dL (228-428); Unsaturated Iron Binding 199 ug/dL
[2024-02-03 15:48] LABS: Ferritin 18 ng/mL (20-250)
[2024-02-07 13:03] LABS: Alpha Fetoprotein 3.1 ng/mL (<6.1)
== END 2024-02-03 14:03 | disposition home or self-care (01) ==
LOC: HO.BBR 14:02
PROVIDERS: PCP Nurse Practitioner Family; Visit Provider Internal Medicine Medical Oncology
DX: E83.110 Hereditary hemochromatosis (principal)
CPT/HCPCS: 36415; 82105; 82728; 83540

== ENCOUNTER 2024-03-11 14:52 | Outpatient (AMB) | payer OTHER, SELFPAY ==
--- NOTE | 2024-03-11 14:54 | A.OFFPC_ITS ---
Vital Signs 03/11/24 14:59 Height 5 ft 5 in Weight 178 lb BMI 29.6 BP 120/82 Blood Pressure Location Lt brachial Position Sitting Pulse 78 Pulse Source Pulse Oximeter Pulse Oximetry (%) 95 Oxygen Delivery Method Room Air Intake Visit Reasons: 3 month follow up Intake Note: Patient here for diabetes f/u. Allergies bee pollen [BEE STINGS] Allergy (Severe, Verified 11/26/23 13:22) Swelling Sulfa (Sulfonamide Antibiotics) [SULFA (SULFONAMIDE ANTIBIOTICS)] Allergy (Severe, Verified 11/26/23 13:22) ANAPHYLAXIS levofloxacin [From Levaquin] Allergy (Mild, Verified 11/26/23 13:22) tendonitis fenofibrate Allergy (Unknown, Verified 11/26/23 13:22) joint pain gabapentin [GABAPENTIN] Allergy (Unknown, Verified 11/26/23 13:22) RASH, HALLUCINATIONS, hallucinations Penicillins [PENICILLINS] Allergy (Unknown, Verified 11/26/23 13:22) ANAPHYLAXIS sesame oil [SESAME OIL] Allergy (Unknown, Verified 11/26/23 13:22) UNKNOWN (AND SESAME SEED) vancomycin [VANCOMYCIN] Allergy (Unknown, Verified 11/26/23 13:22) ITCHING AND REDNESS TO SKIN, itching Tobacco use date assessed: 03/11/24 Dental Screening Dental Screen Date: 03/11/24 Did you have a dental visit in the last 12 months?: Yes Did you have a dental problem in the last 6 months where you did not have access to dental care?: No Was dental information given to patient?: Patient has dentist HPI 3 month follow up HPI Details Pt is a diabetic, on an ARB and a statin. A1C in office today is 5.7. Microalbumin is up to date. Denies polyuria, polydipsia, does report neuropathy to his left big toe (intermittent). Pt denies any signs and symptoms of hypoglycemia and does know how to correct it. Pt reports that his blood sugar has been mostly well-controlled. He uses a sensor. Pt c/o insomnia. He needs a refill of zolpidem, will send. [facility] Medical History Hemochromatosis Newly diagnosed diabetes (~2022) Hypertension Dyslipidemia Tubular adenoma of colon (~2008) Lymph node enlargement Hiatal hernia GERD (gastroesophageal reflux disease) Anxiety IBS (irritable bowel syndrome) BPH (benign prostatic hyperplasia) Insomnia Arm paresthesia, right Arthritis of left leg Facet arthritis, degenerative, L5-S1 level, lumbosacral spine COVID-19 Personal history of nicotine dependence Surgical History History of endoscopy (~2022) History of excision of lesion (~2018) History of bilateral inguinal hernia repair (~2021) History of right knee surgery (~2018) History of left inguinal hernia repair (~2018) History of umbilical hernia repair (~2018) History of colonoscopy (~2022) History of cystoscopy (~2018) History of hand surgery Family History Brother History of colon cancer Mother History of breast cancer Father History of lung cancer Paternal Uncle History of lung cancer Maternal Grandmother History of heart attack Maternal Grandfather History of lung cancer Paternal Grandfather Cancer Other Mental health disorder Substance use disorder Social History Household Members: Spouse Housing: House Are you a primary care attendant to a significant other at home: No Do you presently have visiting nurse or other home services: No Alcohol intake: current Alcohol intake frequency: a few times a month Comment: previously medicated Patient Tobacco Use Status: Former Tobacco user Quit Date: 2016 Tobacco use type: Cigarette e-Cigarette/Vaping Use: Never Used Second Hand Smoke Exposure: Yes Substance Use Type: Marijuana service: No Current occupational status: employed 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 How often do you have a drink containing alcohol?: 2-3 times a week 2. How many drinks containing alcohol do you have on a typical day when you are drinking?: 7 to 9 3. How often do you have six or more drinks on one occasion?: Weekly Total Score: 9 Score Reviewed/Action Taken: No KYLE-7 AMB Questionnaire KYLE-7 Date KYLE - 7 assessed: 11/08/22 Source: Developed by Drs. Gigi Gee, Rosalva Villarreal, Harshal Wallace and colleagues, with an educational john from [employer]. KYLE-7 Assessment Billing KYLE-7 Assessment Tool: pt declined-do not bill Review of Systems Const Reports as per HPI Physical exam (Primary Care) Vital Signs: Last Vital Signs Pulse 78 03/11/24 14:59 BP 120/82 03/11/24 14:59 Pulse Ox 95 03/11/24 14:59 Oxygen Delivery Method Room Air 03/11/24 14:59 BMI result Body Mass Index 29.6 Tobacco/Smoking Status: Tobacco use Status Tobacco use date assessed 03/11/24 03/11/24 15:05 Patient Tobacco Use Status Former Tobacco user 03/11/24 14:54 Tobacco use type Cigarette 03/11/24 14:54 e-Cigarette/Vaping Use Never Used 03/11/24 14:54 Thrive Assessment: Date of Thrive Assessment Date Thrive assessed 11/08/22 03/11/24 14:54 Const General: cooperative Orientation/consciousness: patient oriented x3 Resp Effort & Inspection: normal respiratory effort Auscultation: clear to auscultation bilaterally Cardio Rate: regular rate Rhythm: regular rhythm Heart sounds: S1 normal heart sound present, S2 normal heart sound present and no murmurs Neuro General: patient oriented x3 Extrem Other: feet are intact, + sensation with monofilament Psych Appearance: grossly normal Mental Status: mental status grossly normal Speech and movement: Normal speech and movement present Affect: normal affect Attitude: cooperative Thought process: Normal thought process present Thought content: Normal thought content present Insight: Good insight present (Psych) Judgement: Good judgement present (Psych) Results AMB Hemoglobin A1c AMB Hemoglobin A1c 5.7 % Last Edit by DALI Sherwood on 03/11/24 15 :38 Results Reviewed Results Reviewed: Laboratory Last Values Hgb A1c (Clinic) 5.7 % (4.0-6.0) 03/11/24 15:37 Assessment and Plan Assessment & Plan (1) Type 2 diabetes mellitus: Onset Date: ~2022 Comment: (DM2- dx 2022) Code(s): E11.9 - Type 2 diabetes mellitus without complications (2) Insomnia: Code(s): G47.00 - Insomnia, unspecified Plan The patient agreed to the use of a biomedical specialist for this encounter. Scribed for BENJAMIN Santiago-CHELI by Cintia Medrano, biomedical specialist, on 03/11/2024 at 15:10 EST. Orders: Orders AMB Hemoglobin A1c Today E11.9 - Type 2 diabetes mellitus without complications Medications: New cyclobenzaprine 10 mg PO BEDTIME 30 days PRN 30 tabs 0RF muscle spasm Changed From zolpidem may repeat once if no response in 30-60 minutes 5 mg PO BEDTIME 30 tabs 0RF To zolpidem may repeat once if no response in 30-60 minutes 5 mg PO BEDTIME 30 days PRN 30 tabs 1RF insomnia Coding Level of Care Code Est Pt Level 3 (12238) Diagnoses Type 2 diabetes mellitus E11.9 Insomnia G47.00
[2024-03-11 14:59] VITALS: BP 120/82; PULSE 78; O2SAT 95; BMI 29.6
== END 2024-03-11 16:27 | disposition home or self-care (01) ==
PROVIDERS: PCP Nurse Practitioner Family; Visit Provider Nurse Practitioner Family
DX: E11.9 Type 2 diabetes mellitus without complications (principal); G47.00 Insomnia, unspecified
CPT/HCPCS: 83036; 99213

== ENCOUNTER 2024-03-12 12:46 | Outpatient (REF) | payer OTHER, SELFPAY | END 2024-03-12 12:47 | disposition home or self-care (01) | LOC: HO.BBR 12:46 | PROVIDERS: PCP Nurse Practitioner Family; Visit Provider Internal Medicine Medical Oncology | DX: Z13.89 Encounter for screening for other disorder (principal) ==

== ENCOUNTER 2024-04-22 13:12 | Outpatient (AMB) | payer OTHER, SELFPAY ==
--- NOTE | 2024-04-22 13:28 | A.OFFVIS_ITS ---
Intake Visit Reasons: 6m follow up(Penile Pain) Intake Note: Patient is Present for Follow Up Penile Pain Urology Medication: Finasteride, Betamethasone Ointment Antibiotic Allergies:Vancomycin, Penicillins, Levofloxacin, Sulfa Antibitics Blood Thinners: None Patient states that his symptoms has improved since his last visit Allergies bee pollen [BEE STINGS] Allergy (Severe, Verified 04/22/24 13:33) Swelling Sulfa (Sulfonamide Antibiotics) [SULFA (SULFONAMIDE ANTIBIOTICS)] Allergy (Severe, Verified 04/22/24 13:33) ANAPHYLAXIS levofloxacin [From Levaquin] Allergy (Mild, Verified 04/22/24 13:33) tendonitis fenofibrate Allergy (Unknown, Verified 04/22/24 13:33) joint pain gabapentin [GABAPENTIN] Allergy (Unknown, Verified 04/22/24 13:33) RASH, HALLUCINATIONS, hallucinations Penicillins [PENICILLINS] Allergy (Unknown, Verified 04/22/24 13:33) ANAPHYLAXIS sesame oil [SESAME OIL] Allergy (Unknown, Verified 04/22/24 13:33) UNKNOWN (AND SESAME SEED) vancomycin [VANCOMYCIN] Allergy (Unknown, Verified 04/22/24 13:33) ITCHING AND REDNESS TO SKIN, itching HPI Comments Details: Sean is a pleasant male. He is a patient of Dr. North. 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 [employer] Had tried to contact us for antibiotics If he calls with symptoms would recommend oral penicillin with doxycycline Continue stable prostate with finasteride 3 times a week and pumpkin seed Prostatitis Chronic prostatitis Ongoing since 2018 Last episode responded well to combination therapy Current therapy finasteride PSA 04/24 0.9, 04/25 0.5 Prior response to levaquin - developed tendonitis Microgen 09/26 Broad positivity primarily gram + Inguinal disruption Prior pain on left inguinal canal Improved with self-care instructions [facility] Medical History Hemochromatosis Newly diagnosed diabetes (~2022) Hypertension Dyslipidemia Tubular adenoma of colon (~2008) Lymph node enlargement Hiatal hernia GERD (gastroesophageal reflux disease) Anxiety IBS (irritable bowel syndrome) BPH (benign prostatic hyperplasia) Insomnia Arm paresthesia, right Arthritis of left leg Facet arthritis, degenerative, L5-S1 level, lumbosacral spine COVID-19 Personal history of nicotine dependence Surgical History History of endoscopy (~2022) History of excision of lesion (~2018) History of bilateral inguinal hernia repair (~2021) History of right knee surgery (~2018) History of left inguinal hernia repair (~2018) History of umbilical hernia repair (~2018) History of colonoscopy (~2022) History of cystoscopy (~2018) History of hand surgery Family History Brother History of colon cancer Mother History of breast cancer Father History of lung cancer Paternal Uncle History of lung cancer Maternal Grandmother History of heart attack Maternal Grandfather History of lung cancer Paternal Grandfather Cancer Other Mental health disorder Substance use disorder Social History Household Members: Spouse Housing: House Are you a primary patient care technician to a significant other at home: No Do you presently have visiting nurse or other home services: No Alcohol intake: current Alcohol intake frequency: a few times a month Comment: previously medicated Patient Tobacco Use Status: Former Tobacco user Tobacco use type: Cigarette e-Cigarette/Vaping Use: Never Used Second Hand Smoke Exposure: Yes Substance Use Type: Marijuana service: No Current occupational status: employed 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 Cognitive needs: No Hearing needs: No Vision needs: No Review of Systems Const Denies chills and Denies fever(s) Card Reports no additional complaints and Denies syncope Resp Denies cough GI Denies abdominal pain and Denies heartburn Reports as per HPI and Denies change in libido Neuro Denies syncope Psych Denies change in libido Endo Denies change in libido Physical Exam Const General: cooperative, healthy appearing, comfortable and no acute distress Orientation/consciousness: patient oriented x3 HEENT Face and sinus: Yes normal facial exam Mouth: moist mucous membranes Neck Neck: Yes normal visual inspection, Yes full ROM and Yes trachea midline Chest Chest palpation & inspection: normal inspection of the chest Resp Effort & Inspection: normal respiratory effort, able to speak in complete senten afshan and no respiratory distress GI Inspection: Yes normal to inspection Back/Spine/Pelvis Cervical Spine: normal cervical lordosis Thoracic/Lumbar Spine: thoracic and lumbar spine normal to inspection Skin General skin exam: no rashes or lesions noted Neuro General: patient oriented x3, gait normal, tone normal and moves all extremities Extrem General: Yes normal to inspection and Yes capillary refill normal Assessment & Plan Assessment & Plan (1) Prostatitis: Comment: Longstanding, continue all meds recently prescribed Code(s): N41.9 - Inflammatory disease of prostate, unspecified Category: Medical (2) BPH (benign prostatic hyperplasia): Code(s): N40.0 - Benign prostatic hyperplasia without lower urinary tract symptoms Category: Medical Plan Twelve month follow-up PSA Orders: Orders Prostate Specific Antigen 364 Days N41.9 - Inflammatory disease of prostate, unspecified Patient Instructions: Imaging studies, laboratory and physical exam results were discussed and reviewed in detail. No major barriers to patient understanding were identified. An opportunity to ask questions regarding the treatment plan was provided. All questions were answered. The patient expressed understanding and agreement with the above treatment plan. The patient is aware they should contact our office by phone for worsening of their current condition or the appearance of new urologic symptoms. Compliance is encouraged with any medications and followup testing that is ordered. It is a privilege to participate in the urologic care of your patient. If you have any questions or concerns regarding treatment for the above conditions, or other urologic issues, please do not hesitate to contact me. The office telephone contact is [phone]. This note is constructed using voice recognition software. While every effort has been made to ensure accuracy careers counsellor errors may have been included. Yours sincerely, Dr Jeff Ndiaye MD, [facility] - Urology Providers of Expert, Compassionate Care for the Genitourinary System Coding Level of Care Code Est Pt Level 3 (81146) Diagnoses Prostatitis N41.9 BPH (benign prostatic hyperplasia) N40.0
== END 2024-04-22 14:04 | disposition home or self-care (01) ==
PROVIDERS: PCP Nurse Practitioner Family; Visit Provider Urology
DX: N41.9 Inflammatory disease of prostate, unspecified (principal); N40.0 Benign prostatic hyperplasia without lower urinary tract symptoms
CPT/HCPCS: 99213

== ENCOUNTER → 2024-04-22 13:12 | Outpatient (BNVA) | payer OTHER, SELFPAY | PROVIDERS: PCP Nurse Practitioner Family; Visit Provider Urology ==

== ENCOUNTER 2024-04-24 12:06 | Outpatient (REF) | payer OTHER, SELFPAY | END 2024-04-24 12:07 | disposition home or self-care (01) | LOC: HO.BBR 12:06 | PROVIDERS: PCP Nurse Practitioner Family; Visit Provider Internal Medicine Medical Oncology | DX: Z13.89 Encounter for screening for other disorder (principal) ==

== ENCOUNTER 2024-05-20 12:09 | Outpatient (AMB) | payer OTHER, SELFPAY ==
--- NOTE | 2024-05-20 12:23 | AM.OFFWIN_ITS ---
Intake Vital Signs 05/20/24 12:24 Height 5 ft 5 in Weight 167 lb BMI 27.8 BP 112/80 Blood Pressure Location Lt brachial Position Sitting Pulse 65 Pulse Source Pulse Oximeter Temp 98.2 F Temp Source Oral Pulse Oximetry (%) 98 Oxygen Delivery Method Room Air Intake Visit Reasons: EP Sore Throat/neck pain-ear Intake Note: pt here c/o sore throat/ neck and ear pain. Throat pain for 1 month. Pain radiating to ear started 2 weeks ago. Patient Tobacco Use Status: Former Tobacco user Allergies bee pollen [BEE STINGS] Allergy (Severe, Verified 05/20/24 12:24) Swelling Sulfa (Sulfonamide Antibiotics) [SULFA (SULFONAMIDE ANTIBIOTICS)] Allergy (Severe, Verified 05/20/24 12:24) ANAPHYLAXIS levofloxacin [From Levaquin] Allergy (Mild, Verified 05/20/24 12:24) tendonitis fenofibrate Allergy (Unknown, Verified 05/20/24 12:24) joint pain gabapentin [GABAPENTIN] Allergy (Unknown, Verified 05/20/24 12:24) RASH, HALLUCINATIONS, hallucinations Penicillins [PENICILLINS] Allergy (Unknown, Verified 05/20/24 12:24) ANAPHYLAXIS sesame oil [SESAME OIL] Allergy (Unknown, Verified 05/20/24 12:24) UNKNOWN (AND SESAME SEED) vancomycin [VANCOMYCIN] Allergy (Unknown, Verified 05/20/24 12:24) ITCHING AND REDNESS TO SKIN, itching HPI HPI Comments History of Present Illness Details Patient is a 63-year-old male complaining of feeling like there is something in his throat that he can not swallow for the last few months. He states he feel like he should be able to cough it up but he can not. He denies any upper respiratory symptoms such as a cough, congestion or sore throat. He states it is worse when he lays down at night but it seems better in the morning but then it comes back throughout the day. He states he saw Dr. Balderas, had an upper endoscopy and he prescribed him omeprazole however he never took it because he thought it was for heartburn and he does not think he has heartburn. Second issue is the pain on the right side of his neck that is a sharp shooting pain and goes from his shoulder up to the bottom of his ear. He has pinpointing 1 area on the right side of his neck where the pain seems to come from. He has not tried taking any medication to make it better. He states now the pain is starting on the left side as well. He denies any cervical spine issues. FORMERLY [facility], 1928–1983 Medical History Hemochromatosis Newly diagnosed diabetes (~2022) Hypertension Dyslipidemia Tubular adenoma of colon (~2008) Lymph node enlargement Hiatal hernia GERD (gastroesophageal reflux disease) Anxiety IBS (irritable bowel syndrome) BPH (benign prostatic hyperplasia) Insomnia Arm paresthesia, right Arthritis of left leg Facet arthritis, degenerative, L5-S1 level, lumbosacral spine COVID-19 Personal history of nicotine dependence Surgical History History of endoscopy (~2022) History of excision of lesion (~2018) History of bilateral inguinal hernia repair (~2021) History of right knee surgery (~2018) History of left inguinal hernia repair (~2018) History of umbilical hernia repair (~2018) History of colonoscopy (~2022) History of cystoscopy (~2018) History of hand surgery Family History Brother History of colon cancer Mother History of breast cancer Father History of lung cancer Paternal Uncle History of lung cancer Maternal Grandmother History of heart attack Maternal Grandfather History of lung cancer Paternal Grandfather Cancer Other Mental health disorder Substance use disorder Social History Household Members: Spouse Housing: House Are you a primary rn urgent care to a significant other at home: No Do you presently have visiting nurse or other home services: No Alcohol intake: current Alcohol intake frequency: a few times a month Comment: previously medicated Patient Tobacco Use Status: Former Tobacco user Tobacco use type: Cigarette e-Cigarette/Vaping Use: Never Used Second Hand Smoke Exposure: Yes Substance Use Type: Marijuana service: No Current occupational status: employed 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 Cognitive needs: No Hearing needs: No Vision needs: No Review of Systems Const All systems reviewed & are unremarkable except as noted in HPI and below Physical Exam Vital Signs: Last Vital Signs Temp 98.2 F 05/20/24 12:24 Pulse 65 05/20/24 12:24 BP 112/80 05/20/24 12:24 Pulse Ox 98 05/20/24 12:24 Oxygen Delivery Method Room Air 05/20/24 12:24 BMI result Body Mass Index 27.8 Const General: cooperative, healthy appearing, comfortable, no acute distress and well developed Orientation/consciousness: patient oriented x3 Limitations: no limitations HEENT Head: Yes normal to inspection Eyes General: appearance normal, both eyes and all related structures Neck Neck: Yes normal visual inspection, Yes full ROM, Yes no lymphadenopathy and Yes trachea midline Resp Effort & Inspection: normal respiratory effort and able to speak in complete sentences Back/Spine/Pelvis Cervical Spine: cervical ROM normal, cervical muscular tenderness (right sided), No pain with cervical ROM and No Cervical spine tenderness Skin General skin exam: no rashes or lesions noted Neuro General: patient oriented x3 Extrem General: Yes normal to inspection Assessment & Plan Assessment & Plan (1) GERD (gastroesophageal reflux disease): Code(s): K21.9 - Gastro-esophageal reflux disease without esophagitis Qualifiers: Esophagitis presence: esophagitis presence not specified Qualified Code(s): K21.9 - Gastro-esophageal reflux disease without esophagitis Plan: Recommended patient start taking his omeprazole daily. Recommended following up with Dr. Balderas or PCP if his symptoms do not improve (2) Neck pain: Code(s): M54.2 - Cervicalgia Plan: Recommended taking Aleve ATC for the next 2 3 days and follow up with PCP if no improvement in symptoms. Plan see above Coding Level of Care Code Est Pt Level 4 (16472) Diagnoses Gastroesophageal reflux disease, unspecified whether esophagitis present K21.9 Esophagitis presence: esophagitis presence not specified Neck pain M54.2
[2024-05-20 12:24] VITALS: BP 112/80; PULSE 65; TEMP 36.8; O2SAT 98; BMI 27.8
== END 2024-05-20 12:51 | disposition home or self-care (01) ==
PROVIDERS: PCP Nurse Practitioner Family; Visit Provider Physician Assistant
DX: K21.9 Gastro-esophageal reflux disease without esophagitis (principal); M54.2 Cervicalgia
CPT/HCPCS: 99214

== ENCOUNTER 2024-05-28 09:57 | Outpatient (REF) | payer OTHER, SELFPAY ==
--- NOTE | ~2024-05-28 | US_ITS ---
EXAMINATION: US soft tissue neck CLINICAL INFORMATION: Lymphadenopathy COMPARISON: None available at the time of this dictation. TECHNIQUE: High-frequency linear transducer ultrasound utilized, area of interest scanned, cervical region for lymphadenopathy. FINDINGS: No ultrasound evidence of soft tissue mass, cyst or abscess, or abnormal distortion. Several lymph nodes imaged included bilaterally the largest on the right 1.2 x 0.3 x 0.9 cm, the largest on the left 1.1 x 0.3 x 0.9 cm, these lymph nodes maintain normal size. No bulky lymphadenopathy found. No evidence of focal mass seen. US/US soft tiss head and/or neck IMPRESSION: No ultrasound evidence of lymphadenopathy. *Ultrasound has limited sensitivity detecting some of the solid soft tissue lesions; if signs and/or symptoms persist, cross-sectional imaging, preferably MRI with IV contrast, recommended.
== END 2024-05-28 09:58 | disposition home or self-care (01) ==
LOC: HO.HMGCX 09:57
PROVIDERS: PCP Nurse Practitioner Family; Visit Provider Nurse Practitioner Family
DX: R59.1 Generalized enlarged lymph nodes (principal)
CPT/HCPCS: 76536

== ENCOUNTER 2024-06-01 10:03 | Outpatient (REF) | payer OTHER, SELFPAY ==
[2024-06-01 12:29] LABS: Iron 76 mcg/dL (45-160); Percent Iron Saturation 25 % (15-50); Total Iron Binding Capacity 306 mcg/dL (228-428); Unsaturated Iron Binding 230 ug/dL
[2024-06-01 12:43] LABS: Ferritin 10 ng/mL (20-250)
[2024-06-02 11:49] LABS: Alpha Fetoprotein 2.2 ng/mL (<6.1)
== END 2024-06-01 10:04 | disposition home or self-care (01) ==
LOC: HO.BBR 10:03
PROVIDERS: PCP Nurse Practitioner Family; Visit Provider Internal Medicine Medical Oncology
DX: E83.110 Hereditary hemochromatosis (principal)
CPT/HCPCS: 36415; 82105; 82728; 83540

== ENCOUNTER 2024-06-02 14:32 | Outpatient (AMB) | payer OTHER, SELFPAY ==
[2024-06-02 14:34] VITALS: BP 120/78; PULSE 79; O2SAT 96; BMI 27.8
--- NOTE | 2024-06-02 14:34 | AM.OFFWIN_ITS ---
Intake Vital Signs 06/02/24 14:34 Height 5 ft 5 in Weight 167 lb BMI 27.8 BP 120/78 Blood Pressure Location Lt brachial Position Sitting Pulse 79 Pulse Source Pulse Oximeter Pulse Oximetry (%) 96 Oxygen Delivery Method Room Air Intake Visit Reasons: allergic reaction due to bee sting Intake Note: pt is here for bee sting, has allergic reaction Patient Tobacco Use Status: Former Tobacco user Allergies bee pollen [BEE STINGS] Allergy (Severe, Verified 06/02/24 14:41) Swelling Sulfa (Sulfonamide Antibiotics) [SULFA (SULFONAMIDE ANTIBIOTICS)] Allergy (Severe, Verified 06/02/24 14:41) ANAPHYLAXIS levofloxacin [From Levaquin] Allergy (Mild, Verified 06/02/24 14:41) tendonitis fenofibrate Allergy (Unknown, Verified 06/02/24 14:41) joint pain gabapentin [GABAPENTIN] Allergy (Unknown, Verified 06/02/24 14:41) RASH, HALLUCINATIONS, hallucinations Penicillins [PENICILLINS] Allergy (Unknown, Verified 06/02/24 14:41) ANAPHYLAXIS sesame oil [SESAME OIL] Allergy (Unknown, Verified 06/02/24 14:41) UNKNOWN (AND SESAME SEED) vancomycin [VANCOMYCIN] Allergy (Unknown, Verified 06/02/24 14:41) ITCHING AND REDNESS TO SKIN, itching Do you need a note to return to daycare/school/sports/work: No HPI allergic reaction due to bee sting HPI Details This note is constructed using voice recognition software. While every effort has been made to ensure accuracy, senior ui developer errors may have been included. The patient is a 63 year old male who presents to the clinic today with bee- sting. He notes that he had a be in his hair and was sweating and away and got stung on his hand. He has had a history of anaphylaxis with bee stings and is out of EpiPen. He requests an EpiPen to be administered now. He denies dyspnea, tongue swelling, or any issue with his breathing at this time. [facility] Medical History Hemochromatosis Newly diagnosed diabetes (~2022) Hypertension Dyslipidemia Tubular adenoma of colon (~2008) Lymph node enlargement Hiatal hernia GERD (gastroesophageal reflux disease) Anxiety IBS (irritable bowel syndrome) BPH (benign prostatic hyperplasia) Insomnia Arm paresthesia, right Arthritis of left leg Facet arthritis, degenerative, L5-S1 level, lumbosacral spine COVID-19 Personal history of nicotine dependence Surgical History History of endoscopy (~2022) History of excision of lesion (~2018) History of bilateral inguinal hernia repair (~2021) History of right knee surgery (~2018) History of left inguinal hernia repair (~2018) History of umbilical hernia repair (~2018) History of colonoscopy (~2022) History of cystoscopy (~2018) History of hand surgery Family History Brother History of colon cancer Mother History of breast cancer Father History of lung cancer Paternal Uncle History of lung cancer Maternal Grandmother History of heart attack Maternal Grandfather History of lung cancer Paternal Grandfather Cancer Other Mental health disorder Substance use disorder Social History Household Members: Spouse Housing: House Are you a primary physician locums urgent care to a significant other at home: No Do you presently have visiting nurse or other home services: No Alcohol intake: current Alcohol intake frequency: a few times a month Comment: previously medicated Patient Tobacco Use Status: Former Tobacco user Tobacco use type: Cigarette e-Cigarette/Vaping Use: Never Used Second Hand Smoke Exposure: Yes Substance Use Type: Marijuana service: No Current occupational status: employed 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 Cognitive needs: No Hearing needs: No Vision needs: No Review of Systems Const All systems reviewed & are unremarkable except as noted in HPI and below Physical Exam Vital Signs: Last Vital Signs Pulse 79 06/02/24 14:34 BP 120/78 06/02/24 14:34 Pulse Ox 96 06/02/24 14:34 Oxygen Delivery Method Room Air 06/02/24 14:34 BMI result Body Mass Index 27.8 Const General: cooperative, healthy appearing, comfortable, no acute distress and alert Orientation/consciousness: patient oriented x3 Limitations: no limitations HEENT Head: Yes normal to inspection and Yes normocephalic Mouth: Normal oral and palatal mucosa present and tongue normal Teeth and gingiva: dentition normal Throat: Yes posterior oropharynx normal Neck Neck: Yes normal visual inspection, Yes full ROM and Yes no lymphadenopathy Resp Effort & Inspection: normal respiratory effort and able to speak in complete sentences Auscultation: clear to auscultation bilaterally Cardio Jugular venous distension: no JVD Palpation: normal PMI Rate: regular rate Heart sounds: S1 normal heart sound present, S2 normal heart sound present, no click, no gallops, no murmurs and no rubs Skin General skin exam: no rashes or lesions noted, elasticity normal and turgor normal Neuro General: patient oriented x3 Psych Appearance: grossly normal Mental Status: mental status grossly normal Speech and movement: Normal speech and movement present Affect: normal affect Office Meds EpiPen 0.3 mg/0.3 mL injection, auto-injector Performing Provider: Zabrina Chilel NP Performing Location: [facility] Administered by: Zabrina Chilel NP on 06/02/24 14:45 Dose Route Admin Location Dispensed Lot Number Expiration Date NDC Chemist Enzymes 0.3 mg IM Right thigh 0.3 mL [id number] 07/04/24 [id number] AMNEAL PHARMACE Assessment & Plan Assessment & Plan (1) Bee sting: Code(s): T63.441A - Toxic effect of venom of bees, accidental (unintentional), initial encounter Qualifiers: Encounter type: initial encounter Injury intent: accidental or unintentional Qualified Code(s): T63.441A - Toxic effect of venom of bees, accidental (unintentional), initial encounter Plan: Given patient's history with anaphylaxis with bee sting, epinephrine pen administered immediately after quick exam. Patient denied transferred to hospital by EMS, and declined treatment in the emergency room at this time. Patient did agree to remain in office for monitoring post administration. EpiPen sent to requested pharmacy for additional administration should patient have future encounters with these. He remained in clinic for an additional 18 minutes after administration, and felt that the side effects of the EpiPen had worn off. He continued to remain without any difficulty breathing, and without any swollen tongue. 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 Plan See above for full details and plan. Coding Level of Care Code Est Pt Level 4 (35151) Diagnoses Bee sting, accidental or unintentional, initial encounter T63.441A Encounter type: initial encounter Injury intent: accidental or unintentional
== END 2024-06-02 15:11 | disposition home or self-care (01) ==
PROVIDERS: PCP Nurse Practitioner Family; Visit Provider Registered Nurse
DX: T63.441A Toxic effect of venom of bees, accidental (unintentional), initial encounter (principal)
CPT/HCPCS: 96372; 99214; J0171

== ENCOUNTER 2024-06-10 12:55 | Outpatient (AMB) | payer OTHER, SELFPAY ==
--- NOTE | 2024-06-10 12:56 | MHC.PC.OV ---
Vital Signs 06/10/24 12:57 Height 5 ft 5 in Weight 163 lb 4 oz BMI 27.2 BP 128/80 Blood Pressure Location Lt brachial Position Sitting Pulse 70 Pulse Oximetry (%) 98 Oxygen Delivery Method Room Air Intake Visit Reasons: Annual PE Intake Note: pt is here for annual exam Resume Writer Required: No Accompanied by: Self / Same As Patient Allergies bee pollen [BEE STINGS] Allergy (Severe, Verified 06/10/24 13:28) Swelling Sulfa (Sulfonamide Antibiotics) [SULFA (SULFONAMIDE ANTIBIOTICS)] Allergy (Severe, Verified 06/10/24 13:28) ANAPHYLAXIS levofloxacin [From Levaquin] Allergy (Mild, Verified 06/10/24 13:28) tendonitis fenofibrate Allergy (Unknown, Verified 06/10/24 13:28) joint pain gabapentin [GABAPENTIN] Allergy (Unknown, Verified 06/10/24 13:28) RASH, HALLUCINATIONS, hallucinations Penicillins [PENICILLINS] Allergy (Unknown, Verified 06/10/24 13:28) ANAPHYLAXIS sesame oil [SESAME OIL] Allergy (Unknown, Verified 06/10/24 13:28) UNKNOWN (AND SESAME SEED) vancomycin [VANCOMYCIN] Allergy (Unknown, Verified 06/10/24 13:28) ITCHING AND REDNESS TO SKIN, itching Medication List - Last Reconciled 06/10/24 by BENJAMIN Diamond- alcohol swabs (Alcohol Pads) TID tesing topically TID; amlodipine 10 mg PO DAILY 90 days atorvastatin 20 mg PO DAILY 90 days betamethasone dipropionate 0.05% 1 appl topical BID blood-glucose sensor (FreeStyle Brinda 3 Sensor device) 2x a month buspirone 10 mg PO DAILY 90 days cyclobenzaprine 10 mg PO BEDTIME PRN 30 days epinephrine 0.3 mL IM DIRECTED finasteride 5 mg orally Saturday, Saturday, Saturday schedule; FreeStyle Lancets (lancets) TID testing NS FreeStyle Lite Meter (blood-glucose meter) TID testing NS FreeStyle Lite Strips (blood sugar diagnostic) TID testing NS lidocaine 4% 1 patch topical DAILY PRN losartan 25 mg PO DAILY 90 days omega-3 acid ethyl esters 2 caps PO BID 90 days pumpkin seed-soy germ-Cissus 300-150 mg as directed zolpidem 5 mg PO BEDTIME PRN 30 days Tobacco use date assessed: 03/11/24 Dental Screening Dental Screen Date: 03/11/24 HPI Annual PE HPI Details Pt is here for a PE. Will order labs. Colon screen is up to date. Due for PSA, pt is seeing urology. Pt is a diabetic, on an ARB and a statin. A1C in office today is 6.2. Microalbumin is up to date. Denies polyuria, polydipsia, and neuropathy. Pt denies any signs and symptoms of hypoglycemia and does know how to correct it. Pt c/o post-nasal drip. He has some left maxillary sinus tenderness as well. Will send doxycycline and prednisone. [facility] Medical History Hemochromatosis Newly diagnosed diabetes (~2022) Hypertension Dyslipidemia Tubular adenoma of colon (~2008) Lymph node enlargement Hiatal hernia GERD (gastroesophageal reflux disease) Anxiety IBS (irritable bowel syndrome) BPH (benign prostatic hyperplasia) Insomnia Arm paresthesia, right Arthritis of left leg Facet arthritis, degenerative, L5-S1 level, lumbosacral spine COVID-19 Personal history of nicotine dependence Surgical History History of endoscopy (~2022) History of excision of lesion (~2018) History of bilateral inguinal hernia repair (~2021) History of right knee surgery (~2018) History of left inguinal hernia repair (~2018) History of umbilical hernia repair (~2018) History of colonoscopy (~2022) History of cystoscopy (~2018) History of hand surgery Family History Brother History of colon cancer Mother History of breast cancer Father History of lung cancer Paternal Uncle History of lung cancer Maternal Grandmother History of heart attack Maternal Grandfather History of lung cancer Paternal Grandfather Cancer Other Mental health disorder Substance use disorder Social History Household Members: Spouse Housing: House Are you a primary daycare manager to a significant other at home: No Do you presently have visiting nurse or other home services: No Alcohol intake: current Alcohol intake frequency: a few times a month Comment: previously medicated Patient Tobacco Use Status: Former Tobacco user Tobacco use type: Cigarette e-Cigarette/Vaping Use: Never Used Second Hand Smoke Exposure: Yes Substance Use Type: Marijuana service: No Current occupational status: employed 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 1. Little interest or pleasure in doing things: several days 2. Feeling down, depressed, or hopeless: not at all 3. Trouble falling or staying asleep, or sleeping too much: several days 4. Feeling tired or having little energy: several days 5. Poor appetite or overeating: several days 6. Feeling bad about yourself - or that you are a failure or have let yourself or your family down: not at all 7. Trouble concentrating on things, such as reading the newspaper or watching television: not at all 8. Moving or speaking so slowly that other people could have noticed. Or the opposite - being so fidgety or restless that you have been moving around a lot more than usual: not at all 9. Thoughts that you would be better off or of hurting yourself in some way: not at all Total score: 4 Depression Screening Interpretation: Negative Depression Screening Done: Yes 11692 - PHQ-9 Billing: Yes Source: Developed by Drs. Gigi Gee, Rosalva Villarreal, Hrashal Wallace and colleagues, with an educational john from [employer]. Thrive Questionnaire Date Thrive assessed: 06/10/24 I am a: Patient What is your living situation today?: I have a steady place to live Within the past 12 months, did the food you bought not last and you didn't have the money to get more?: Never true Within the past 12 months, did you worry whether your food would run out before you got money to buy more?: Never true Do you have trouble paying for medicines?: No Do you have trouble getting transportation to medical appointments?: No Do you have trouble paying your heating and electricity bill?: No Do you have trouble taking care of your child, family member or friend?: No Do you have trouble with day-to-day activities such as bathing, preparing meals, shopping, managing finances, etc.?: No Are you currently unemployed and looking for a job?: No Are you interested in more education?: No Please select the resources that you would like help with: Housing/Chcf Currently or been in a relationship where the following occur: No concerns reported THRIVE Score: 0 AUDIT C Alcohol Use Questionnaire (AUDIT-C) 1. How often do you have a drink containing alcohol?: 2-4 times a month 2. How many drinks containing alcohol do you have on a typical day when you are drinking?: 5 or 6 3. How often do you have six or more drinks on one occasion?: Monthly Total Score: 6 Score Reviewed/Action Taken: Yes KYLE-7 AMB Questionnaire KYLE-7 Date KYLE - 7 assessed: 06/10/24 Feeling nervous, anxious, or on edge: 1 = Several days Not being able to stop or control worryin = Not at all Worrying too much about different things: 0 = Not at all Trouble relaxin = Several days Being so restless that it is hard to sit still: 1 = Several days Becoming easily annoyed or irritable: 1 = Several days Feeling afraid as if something awful might happen: 0 = Not at all Total KYLE-7 score (0-4 normal; 5-9 mild; 10-14 moderate; 15-21 severe): 4 Source: Developed by Drs. Gigi Gee, Rosalva Villarreal, Harshal Wallace and colleagues, with an educational john from [employer]. KYLE-7 Assessment Billing KYLE-7 Assessment Tool: KYLE-7 Assessment 22142 Review of Systems Const Denies chills and Denies fever(s) Eyes Denies blurry vision ENT Denies vertigo, Denies dizziness and Denies sore throat Card Denies chest pain at rest, Denies chest pain with activity, Denies diaphoresis, Denies dyspnea and Denies dyspnea on exertion Resp Denies cough, Denies dyspnea, Denies dyspnea on exertion and Denies wheezing GI Denies abdominal pain, Denies melena, Denies hematochezia, Denies constipation, Denies diarrhea and Denies loose stools Denies hematuria Musc Denies numbness and Denies tingling Skin/Breast Denies lesions Neuro Denies vertigo, Denies dizziness, Denies numbness and Denies tingling Psych Denies anxiety, Denies depression, Denies homicidal ideation, Denies suicidal ideation and Denies other (substance abuse) Aller/Immun Denies wheezing Physical exam (Primary Care) Vital Signs: Last Vital Signs Pulse 70 06/10/24 12:57 BP 128/80 06/10/24 12:57 Pulse Ox 98 06/10/24 12:57 Oxygen Delivery Method Room Air 06/10/24 12:57 BMI result Body Mass Index 27.2 Tobacco/Smoking Status: Tobacco use Status Tobacco use date assessed 03/11/24 06/10/24 12:57 Patient Tobacco Use Status Former Tobacco user 06/10/24 12:57 Tobacco use type Cigarette 06/10/24 12:57 e-Cigarette/Vaping Use Never Used 06/10/24 12:57 PHQ-9: PHQ-9 Score PHQ-9: Total score 4 06/10/24 13:29 Depression Screening Interpretation: Negative Thrive Assessment: Date of Thrive Assessment Date Thrive assessed 06/10/24 06/10/24 13:02 Currently or been in a relationship where the following occur: No concerns reported Const General: cooperative Nutritional Appearance: well nourished Orientation/consciousness: patient oriented x3 HENMT Head: Yes normal to inspection, Yes normocephalic and Yes atraumatic Ears: TM's normal bilaterally Eyes General: appearance normal, both eyes and all related structures Alignment and Position: alignment normal and position normal Neck Other: cervical lymphadenopathy noted Neck: Yes normal visual inspection Thyroid: Thyroid normal Resp Effort & Inspection: normal respiratory effort Auscultation: clear to auscultation bilaterally Cardio Rate: regular rate Rhythm: regular rhythm Heart sounds: S1 normal heart sound present, S2 normal heart sound present and no murmurs GI Palpation (GI): Soft to palpation and nontender Auscultation: normal bowel sounds Male General Exam: Yes normal external exam Penis: normal penis Scrotum: scrotum normal, testes descended bilaterally and no inguinal hernias Testes: no testicular mass Skin Rashes: no rashes Neuro General: patient oriented x3, moves all extremities, no focal motor deficits and deep tendon reflexes 2+ bilaterally Romberg Test: Negative Psych Appearance: grossly normal Mental Status: mental status grossly normal Speech and movement: Normal speech and movement present Affect: normal affect Attitude: cooperative Thought process: Normal thought process present Thought content: Normal thought content present Insight: Good insight present (Psych) Judgement: Good judgement present (Psych) Results AMB Hemoglobin A1c AMB Hemoglobin A1c 6.2 % Last Edit by Hugo Adams CMA on 06/10/24 13:26 Results Reviewed Results Reviewed: Laboratory Last Values Hgb A1c (Clinic) 6.2 % (4.0-6.0) H 06/10/24 13:25 Assessment and Plan Assessment & Plan (1) Encounter for routine adult physical exam with abnormal findings: Code(s): Z00.01 - Encounter for general adult medical examination with abnormal findings Plan The patient agreed to the use of a vice president medical affairs for this encounter. Scribed for JORGE Santiago by Cintia Medrano vice president medical affairs, on 06/10/2024 at 13:30 EST. Orders: Orders Complete Blood Count Auto Diff Today Z00.01 - Encounter for general adult medical examination with abnormal findings Comprehensive [place]. Panel Fast Today Z00.01 - Encounter for general adult medical examination with abnormal findings UA CC w/rflx Micro + Cult Today Z00.01 - Encounter for general adult medical examination with abnormal findings Lipid Panel Today Z00.01 - Encounter for general adult medical examination with abnormal findings AMB Hemoglobin A1c Today Z13.9 - Encounter for screening, unspecified TSH reflex Free T4 Today Z00.01 - Encounter for general adult medical examination with abnormal findings Medications: New doxycycline hyclate 100 mg PO BID 10 days 20 tabs 0RF prednisone 50 mg PO DAILY 6 tabs 0RF Coding Level of Care Code Est Pt Prev Care 40-64y(45645) Diagnoses Encounter for routine adult physical exam with abnormal findings Z00.01 Additional Codes KYLE-7 Assessment Billing - KYLE-7 Assessment Tool: KYLE-7 Assessment 09307 ([id number])
[2024-06-10 12:57] VITALS: BP 128/80; PULSE 70; O2SAT 98; BMI 27.2
== END 2024-06-10 14:04 | disposition home or self-care (01) ==
PROVIDERS: PCP Nurse Practitioner Family; Visit Provider Nurse Practitioner Family
DX: Z00.00 Encounter for general adult medical examination without abnormal findings (principal); E11.9 Type 2 diabetes mellitus without complications
CPT/HCPCS: 83036; 99396

== ENCOUNTER 2024-07-08 14:14 | Outpatient (AMB) | payer OTHER, SELFPAY ==
--- NOTE | 2024-07-08 14:15 | MHC.OFFWIV ---
Intake Vital Signs 07/08/24 14:16 Height 5 ft 5 in Weight 166 lb BMI 27.6 BP 110/70 Blood Pressure Location Rt brachial Position Sitting Pulse 66 Pulse Source Pulse Oximeter Temp 98.1 F Temp Source Oral Pulse Oximetry (%) 97 Oxygen Delivery Method Room Air Intake Visit Reasons: EP Pain in chest/down left arm Intake Note: pt c/o chest pain and LT arm pain. Started 4-5 days ago. Chest pain is intermittent Patient Tobacco Use Status: Former Tobacco user Allergies bee pollen [BEE STINGS] Allergy (Severe, Verified 07/08/24 14:26) Swelling Sulfa (Sulfonamide Antibiotics) [SULFA (SULFONAMIDE ANTIBIOTICS)] Allergy (Severe, Verified 07/08/24 14:26) ANAPHYLAXIS levofloxacin [From Levaquin] Allergy (Mild, Verified 07/08/24 14:26) tendonitis fenofibrate Allergy (Unknown, Verified 07/08/24 14:26) joint pain gabapentin [GABAPENTIN] Allergy (Unknown, Verified 07/08/24 14:26) RASH, HALLUCINATIONS, hallucinations Penicillins [PENICILLINS] Allergy (Unknown, Verified 07/08/24 14:26) ANAPHYLAXIS sesame oil [SESAME OIL] Allergy (Unknown, Verified 07/08/24 14:26) UNKNOWN (AND SESAME SEED) vancomycin [VANCOMYCIN] Allergy (Unknown, Verified 07/08/24 14:26) ITCHING AND REDNESS TO SKIN, itching Do you need a note to return to daycare/school/sports/work: No HPI EP Pain in chest/down left arm HPI Details This note is constructed using voice recognition software. While every effort has been made to ensure accuracy, clock assembler errors may have been included. The patient is a 63 year old male who presents to the clinic today with left sided chest pain, left arm pain for the past 4 days intermittently. He denies dyspnea, cough, diaphoresis, jaw pain, acid reflux. His pain is intermittent and worsened by cough. He has been working with his pcp for the past couple years to correct a chronic cough. He struggles to clear his throat fairly often, up to multiple times per day. He has not tried anything to make the pain better. For his arm, he feels this was contributed to by coughing as well. He denies trauma to the area, numbness, or tingling. The pain is primarily at the left trapezius region along the top boarder, as well as into the bicep insertion. He denies change in ROM or strength. HE also notes a spot on his back that has been there for over 20 years, a scar, which tends to be painful and bleed occassionally. He keeps forgetting to tell his pcp about this and requests referral to dermatology. [facility] Medical History Hemochromatosis Newly diagnosed diabetes (~2022) Hypertension Dyslipidemia Tubular adenoma of colon (~2008) Lymph node enlargement Hiatal hernia GERD (gastroesophageal reflux disease) Anxiety IBS (irritable bowel syndrome) BPH (benign prostatic hyperplasia) Insomnia Arm paresthesia, right Arthritis of left leg Facet arthritis, degenerative, L5-S1 level, lumbosacral spine COVID-19 Personal history of nicotine dependence Surgical History History of endoscopy (~2022) History of excision of lesion (~2018) History of bilateral inguinal hernia repair (~2021) History of right knee surgery (~2018) History of left inguinal hernia repair (~2019) History of umbilical hernia repair (~2018) History of colonoscopy (~2022) History of cystoscopy (~2018) History of hand surgery Family History Brother History of colon cancer Mother History of breast cancer Father History of lung cancer Paternal Uncle History of lung cancer Maternal Grandmother History of heart attack Maternal Grandfather History of lung cancer Paternal Grandfather Cancer Other Mental health disorder Substance use disorder Social History Household Members: Spouse Housing: House Are you a primary healthcare social worker to a significant other at home: No Do you presently have visiting nurse or other home services: No Alcohol intake: current Alcohol intake frequency: a few times a month Comment: previously medicated Patient Tobacco Use Status: Former Tobacco user Tobacco use type: Cigarette e-Cigarette/Vaping Use: Never Used Second Hand Smoke Exposure: Yes Substance Use Type: Marijuana service: No Current occupational status: employed 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 Cognitive needs: No Hearing needs: No Vision needs: No Review of Systems Const All systems reviewed & are unremarkable except as noted in HPI and below Physical Exam Vital Signs: Last Vital Signs Temp 98.1 F 07/08/24 14:16 Pulse 66 07/08/24 14:16 BP 110/70 07/08/24 14:16 Pulse Ox 97 07/08/24 14:16 Oxygen Delivery Method Room Air 07/08/24 14:16 BMI result Body Mass Index 27.6 Const General: cooperative, healthy appearing, comfortable, no acute distress and alert Orientation/consciousness: patient oriented x3 Limitations: no limitations Neck Neck: Yes normal visual inspection, Yes full ROM and Yes no lymphadenopathy Chest Other: Tender to palpation in the costochondral region in the left chest wall. Chest palpation & inspection: normal inspection of the chest, no crepitus and no masses Resp Effort & Inspection: normal respiratory effort and able to speak in complete sentences Auscultation: clear to auscultation bilaterally Cardio Jugular venous distension: no JVD Palpation: normal PMI Rate: regular rate Heart sounds: S1 normal heart sound present, S2 normal heart sound present, no click, no gallops, no murmurs and no rubs Skin Other: 1 cm diameter hypopigmented scar with visible signs of recent bleeding to mid upper spine. General skin exam: no rashes or lesions noted, elasticity normal and turgor normal Neuro General: patient oriented x3 Extrem Other: Increased muscle bulging and left trapezius. Left shoulder and arm full range of motion. Tender to palpation left trapezius and left biceps insertion. Biceps intact, distal neurovascular exam intact. No ecchymosis, erythema, edema. General: Yes normal to inspection, Yes full ROM, Yes capillary refill normal and Yes normal exam except as noted Psych Appearance: grossly normal Mental Status: mental status grossly normal Speech and movement: Normal speech and movement present Affect: normal affect Assessment & Plan Assessment & Plan (1) Costochondritis: Code(s): M94.0 - Chondrocostal junction syndrome [Tietze] Plan: Advised oral and topical NSAIDs, muscle rubs, heat/ice. Advised follow up with PCP with worsening symptoms or failure to resolve. In office EKG appears normal, no concerns for VT, and given the reproducibility of the pain, it is unlikely to be an VT. (2) Strain of left trapezius muscle: Code(s): S46.812A - Strain of other muscles, fascia and tendons at shoulder and upper arm level, left arm, initial encounter Qualifiers: Encounter type: initial encounter Qualified Code(s): S46.812A - Strain of other muscles, fascia and tendons at shoulder and upper arm level, left arm, initial encounter Plan: Advised oral and topical NSAIDs, muscle rubs, heat/ice. Advised follow up with PCP with worsening symptoms or failure to resolve. (3) Atypical pigmented skin lesion: Code(s): L81.9 - Disorder of pigmentation, unspecified Plan: Etiology unclear, given timeline since onset and recurrent bleeding of an area that we would not anticipate 2, referral to Dermatology for biopsy consideration placed. Plan See above for full details and plan. Orders: Orders AMB EKG-In Office Today M94.0 - Chondrocostal junction syndrome [Tietze] Referrals Dermatology Referral L81.9 - Disorder of pigmentation, unspecified Coding Level of Care Code Est Pt Level 4 (47239) Diagnoses Costochondritis M94.0 Strain of left trapezius muscle, initial encounter S46.812A Encounter type: initial encounter Atypical pigmented skin lesion L81.9
[2024-07-08 14:16] VITALS: BP 110/70; PULSE 66; TEMP 36.7; O2SAT 97; BMI 27.6
== END 2024-07-08 15:03 | disposition home or self-care (01) ==
PROVIDERS: PCP Nurse Practitioner Family; Visit Provider Registered Nurse
DX: M94.0 Chondrocostal junction syndrome [Tietze] (principal); S46.812A Strain of other muscles, fascia and tendons at shoulder and upper arm level, left arm, initial encounter; L81.9 Disorder of pigmentation, unspecified
CPT/HCPCS: 99214

== ENCOUNTER 2024-07-15 12:50 | Outpatient (REF) | payer OTHER, SELFPAY ==
--- NOTE | ~2024-07-15 | FL_ITS ---
EXAMINATION: XR FLUOROSCOPY UPPER GI WITH AIR CLINICAL INFORMATION: Reflux. Frequent clearing of throat. COMPARISON: None TECHNIQUE: Fluoroscopic air contrast upper GI examination was performed utilizing standard techniques with thin and thick barium and effervescent granules. Numerous spot images were obtained. FINDINGS: Lateral cine images of the oropharynx and hypopharynx demonstrate normal swallow mechanism with normal epiglottic inversion and soft palate elevation. No tracheal penetration, glottic or subglottic aspiration identified. No nasopharyngeal reflux present. Hypopharyngeal structures appear normal without evidence of mass or diverticulum. There is a small anterior bridging osteophyte at C5-C6 that is causing minimal posterior indentation of the cervical esophagus. There was no significant cricopharyngeal achalasia. Dual and single contrast images of the esophagus demonstrate normal caliber, contour, and mucosal pattern. No evidence of stricture, mass, or ulcerations identified. Esophageal peristalsis is mildly disorganized. A nonobstructing Schatzki's ring is present. A small type I hiatal hernia is present. Significant gastroesophageal reflux is seen up to the thoracic inlet. Dual contrast and single contrast images of the stomach demonstrated a normal contour. The gastric rugal folds have a thickened appearance, suggestive of gastritis. There are multiple tiny foci of contrast pooling in the posterior medial wall of the gastric body that likely represent small superficial apthous ulcers. No masses are seen. Contrast freely passed into the gastric antrum and duodenal bulb without delay. Single and air-contrast images of the duodenal bulb demonstrate no abnormality. The duodenal sweep has a normal appearance, course, and mucosal fold appearance. The imaged proximal jejunum has a normal fold pattern and caliber. FLUOROSCOPY TIME: 3 minutes 18 seconds Number of Spot Images: 6 Number of Cine: 14 DOSE AREA PRODUCT: 2223 uGy-m2 (microgray-meter squared) FL/FL barium swallow with air IMPRESSION: 1. Small anterior bridging osteophyte at C5-C6 is causing minimal posterior indentation of the cervical esophagus. This is unlikely contributing to the patient's symptoms. 2. Mildly disorganized esophageal peristalsis. 3. Nonobstructing Schatzki's ring. 4. Small type I hiatal hernia with significant gastroesophageal reflux. 5. Thickened appearance of the gastric rugal folds. In addition there are multiple tiny foci of contrast pooling along the lesser curvature of the stomach. These findings are suggestive of erosive gastritis. Recommend correlation with recent EGD. This procedure was performed by Charles David PA-C, and supervised by Dr. Stock Electronically signed by: Miguel Stock MD 07/15/2024 04:49 PM EDT
== END 2024-07-15 12:51 | disposition home or self-care (01) ==
LOC: HO.XRAY 12:50
PROVIDERS: PCP Nurse Practitioner Family; Visit Provider Otolaryngology
DX: K22.719 Barrett's esophagus with dysplasia, unspecified (principal)
CPT/HCPCS: 74221

== ENCOUNTER → 2024-07-15 12:52 | Outpatient (BNV) | payer OTHER, SELFPAY | PROVIDERS: PCP Nurse Practitioner Family; Visit Provider Radiology Diagnostic Radiology | DX: K21.9 Gastro-esophageal reflux disease without esophagitis (principal) | CPT/HCPCS: 74246 ==

== ENCOUNTER 2024-07-30 15:21 | Outpatient (REF) | payer OTHER, SELFPAY ==
[2024-07-30 16:09] LABS: Blood Urea Nitrogen 21 mg/dL (9-16); Estimated Glomerular Filt Rate > 60
== END 2024-07-30 15:22 | disposition home or self-care (01) ==
LOC: HO.LAB 15:21
PROVIDERS: PCP Nurse Practitioner Family; Visit Provider Otolaryngology
DX: C13.9 Malignant neoplasm of hypopharynx, unspecified (principal)
CPT/HCPCS: 36415; 82565; 84520

== ENCOUNTER 2024-08-05 14:16 | Outpatient (REF) | payer OTHER, SELFPAY ==
--- NOTE | ~2024-08-05 | CT_ITS ---
EXAMINATION: CT SOFT TISSUE NECK WITH CONTRAST CLINICAL INFORMATION: Dysphonia COMPARISON: None available. TECHNIQUE: Following the intravenous administration of 70 mL of Omnipaque 350 intravenous contrast, helical imaging was performed in the axial plane with generation of coronal and sagittal reformatted images. This CT examination was performed using dose optimization techniques as appropriate, variously including the following: *Automated exposure control *Adjustment of mA and/or kV according to patient size (this includes techniques or standardized protocols for targeted exams where dose is matched to indication/reason for exam; i.e. extremities or head) *Use of iterative reconstruction technique DLP: 268 mGy-cm FINDINGS: No suspicious enhancement. No abnormally enlarged neck lymph node. Limited evaluation of the oral cavity secondary to streak artifact from dental almalgam. The nasopharynx, oropharynx, hypopharynx, and laryngeal structures are otherwise unremarkable. The parotid, submandibular, and thyroid glands are unremarkable. The visualized orbits are unremarkable. Fluid levels within the bilateral maxillary sinuses with mucous retention cyst in the left maxillary sinus. Small left mastoid effusion. The visualized vasculature of the neck are unremarkable. The visualized portions of the brain are unremarkable. No acute osseous abnormality. No lytic or blastic osseous lesions. Multilevel degenerative changes of the visualized spine. The visualized lungs are clear. CT/CT soft tissue neck w IV con IMPRESSION: -Unremarkable CT neck soft tissue. Electronically signed by: Juliet Haque MD 08/05/2024 08:12 PM EDT
[2024-08-05] MEDS: iohexoL 350 MG/ML 100 ML INFUS..BTL IV (14:40)
== END 2024-08-05 14:17 | disposition home or self-care (01) ==
LOC: HO.CT 14:16
PROVIDERS: PCP Nurse Practitioner Family; Visit Provider Otolaryngology
DX: D10.9 Benign neoplasm of pharynx, unspecified (principal); R48.0 Dyslexia and alexia
CPT/HCPCS: 70491; Q9967

== ENCOUNTER 2024-08-24 14:52 | Outpatient (REF) | payer OTHER, SELFPAY ==
[2024-08-24 16:47] LABS: Iron 88 mcg/dL (45-160); Percent Iron Saturation 27 % (15-50); Total Iron Binding Capacity 329 mcg/dL (228-428); Unsaturated Iron Binding 241 ug/dL
[2024-08-24 17:04] LABS: Ferritin 11 ng/mL (20-250)
== END 2024-08-24 14:53 | disposition home or self-care (01) ==
LOC: HO.BBR 14:52
PROVIDERS: PCP Nurse Practitioner Family; Visit Provider Internal Medicine Medical Oncology
DX: E83.110 Hereditary hemochromatosis (principal)
CPT/HCPCS: 36415; 82728; 83540

== ENCOUNTER 2024-08-26 15:03 | Outpatient (REF) | payer OTHER, SELFPAY ==
--- NOTE | ~2024-08-26 | CT_ITS ---
EXAMINATION: CT LOW-DOSE SCREENING CHEST WITHOUT CONTRAST CLINICAL INFORMATION: Personal history of nicotine dependence. Former smoker. The patient has a 80 pack-year history of smoking, having quit 7 years ago. COMPARISON: CT chest August 30, 2023. X-ray chest June 02, 2023. TECHNIQUE: Multidetector volumetric CT imaging of the chest is performed on a Siemens SOMATOM Definition scanner without contrast using low dose technique. Additional 2D coronal and sagittal reformatted images and axial 3D maximum intensity projection (MIP) images are generated on the CT workstation. This CT examination was performed using dose optimization techniques as appropriate, variously including the following: *Automated exposure control *Adjustment of mA and/or kV according to patient size (this includes techniques or standardized protocols for targeted exams where dose is matched to indication/reason for exam; i.e. extremities or head) *Use of iterative reconstruction technique TOTAL EXAM DLP: 50 mGy-cm. CTDIvol: 1.56 mGy. FINDINGS: PULMONARY NODULES: No suspicious pulmonary nodules. LUNGS: Lungs bilaterally symmetrically expanded. There is mild emphysema and bronchial thickening without bronchiectasis. No effusion or pneumothorax. Central airways patent. MEDIASTINUM: No mediastinal, hilar or axillary adenopathy or free fluid collection. CORONARY ARTERY CALCIFICATION: Present THYROID GLAND: Unremarkable to the extent seen. CARDIOVASCULAR STRUCTURES: Aortic and heart size normal. No pericardial effusion. CHEST WALL/AXILLA: Unremarkable. UPPER ABDOMEN: Included portions of the solid organs in the upper abdomen unremarkable on noncontrast imaging. OSSEOUS STRUCTURES: No suspicious focal findings. CT/CT lung screening IMPRESSION: 1. No evidence of pulmonary malignancy. 2. Mild emphysema and bronchial thickening. ASSESSMENT: 1. Lung-RADS Category 1: Negative. There are no nodules or there are definitely benign nodules. N/A 2. Lung-RADS Category S: Negative. There are no clinically significant or potentially clinically significant findings not related to the lungs requiring urgent additional evaluation. RECOMMENDATION: Continued routine annual low-dose CT lung screening in 1 year is recommended. An order for CT CHEST LOW DOSE CANCER SCREENING ([id number]) can be placed. Electronically signed by: Dipak Clancy MD 10/14/2024 01:38 PM [facility]
== END 2024-08-26 15:04 | disposition home or self-care (01) ==
LOC: HO.CT 15:03
PROVIDERS: PCP Nurse Practitioner Family; Visit Provider Physician Assistant Medical
DX: Z12.2 Encounter for screening for malignant neoplasm of respiratory organs (principal); Z87.891 Personal history of nicotine dependence
CPT/HCPCS: 71271

== ENCOUNTER 2024-09-11 08:30 | Outpatient (REF) | payer OTHER, SELFPAY ==
[2024-09-11 10:06] LABS: Basophils Percent Auto 0.6 % (0-2); Eosinophils Absolute Auto 0.1 X10*3/uL (0.0-0.4); Eosinophils Percent Auto 1.6 % (0-4); Hemoglobin 12.7 g/dl (14.0-18.0); Imm Gran Abs Auto 0.01 X10*3/uL (0.00-0.03); Imm Gran Pct Auto 0.2 % (0.0-0.4); Lymphocytes Absolute Auto 1.6 X10*3/uL (1.2-4.9); Lymphocytes Percent Auto 33.3 % (20-40); MANUAL DIFF FLAG NO; Mean Corpuscular HGB Conc 32.6 g/dl (31.0-36.0); Mean Corpuscular Hemoglobin 27.1 pg (27.0-33.0); Mean Corpuscular Volume 83.3 fL (80.0-98.0); Mean Platelet Volume 8.9 fL (9.4-12.4); Monocytes Absolute Auto 0.6 X10*3/uL (0.1-1.2); Monocytes Percent Auto 12.9 % (2-11); Neutrophils Absolute Auto 2.5 x10*3/uL (2.0-8.3); Neutrophils Percent Auto 51.4 % (45-73); Platelet Count 342 X10*3/uL (160-400); Red Blood Count 4.68 X10*6/uL (4.60-5.80); Red Cell Distribution Width 14.5 % (11.0-16.0); White Blood Count 4.9 X10*3/uL (4.8-10.8)
[2024-09-11 10:06] LABS: Appearance Urine Clear; Color Urine Yellow; Glucose Urine UA Negative (Negative); Leukocyte Esterase Urine Negative (Negative); Nitrite Urine Negative (Negative); PH 6.5 (5.0-9.0); Urine Blood Negative (Negative); Urine Ketones Negative (Negative); Urine Protein Negative (Neg-Trace)
[2024-09-11 12:03] LABS: Alanine Aminotransferase 25 U/L (0-40); Albumin Level 4.4 g/dL (3.5-5.0); Alkaline Phosphatase 56 U/L (39-117); Anion Gap 13 (12-20); Aspartate Amino Transferase 18 U/L (5-37); Bilirubin Total 0.6 mg/dL (0.0-1.0); Blood Urea Nitrogen 22 mg/dL (9-16); Calcium 9.3 mg/dL (8.4-10.2); Carbon Dioxide 24 mmol/L (22-29); Chloride 108 mmol/L (96-108); Cholesterol 162 mg/dL (<200); Estimated Glomerular Filt Rate > 60; Glucose Fasting 136 mg/dL (60-99); HDL Cholesterol 37 mg/dL (>40); LDL Cholesterol Calculated 107 mg/dL (<100); Potassium 3.7 mmol/L (3.3-5.1); Sodium 141 mmol/L (135-145); Total Protein 6.9 g/dL (6.5-8.0); Triglycerides 93 mg/dL (<150)
[2024-09-11 12:25] LABS: TSH reflex Free T4 1.29 uIU/mL (0.32-4.0)
== END 2024-09-11 08:31 | disposition home or self-care (01) ==
LOC: HO.HMGCLDS 08:30
PROVIDERS: PCP Nurse Practitioner Family; Visit Provider Nurse Practitioner Family
DX: Z00.01 Encounter for general adult medical examination with abnormal findings (principal)
CPT/HCPCS: 36415; 80053; 80061; 81003; 84443; 85025

== ENCOUNTER → 2024-09-16 16:17 | Outpatient (BNVA) | payer OTHER, SELFPAY | PROVIDERS: PCP Nurse Practitioner Family; Visit Provider Nurse Practitioner Family | DX: R05.3 Chronic cough (principal); R13.10 Dysphagia, unspecified; E11.9 Type 2 diabetes mellitus without complications | CPT/HCPCS: 83036; 96127 ==

== ENCOUNTER → 2024-09-16 16:17 | Outpatient (AMB) | payer OTHER, SELFPAY ==
[2024-09-16 16:19] VITALS: BP 120/80; PULSE 71; O2SAT 98; BMI 27.6
--- NOTE | 2024-09-16 16:19 | MHC.PC.OV ---
Vital Signs 09/16/24 16:19 Height 5 ft 5 in Weight 166 lb BMI 27.6 BP 120/80 Blood Pressure Location Rt brachial Position Sitting Pulse 71 Pulse Source Pulse Oximeter Pulse Oximetry (%) 98 Intake Visit Reasons: 3 mon follow up Intake Note: pt is here 3 month f/up Personnel Scheduler Required: No Accompanied by: Self / Same As Patient Allergies bee pollen [BEE STINGS] Allergy (Severe, Verified 09/16/24 18:00) Swelling Sulfa (Sulfonamide Antibiotics) [SULFA (SULFONAMIDE ANTIBIOTICS)] Allergy (Severe, Verified 09/16/24 18:00) ANAPHYLAXIS levofloxacin [From Levaquin] Allergy (Mild, Verified 09/16/24 18:00) tendonitis fenofibrate Allergy (Unknown, Verified 09/16/24 18:00) joint pain gabapentin [GABAPENTIN] Allergy (Unknown, Verified 09/16/24 18:00) RASH, HALLUCINATIONS, hallucinations Penicillins [PENICILLINS] Allergy (Unknown, Verified 09/16/24 18:00) ANAPHYLAXIS sesame oil [SESAME OIL] Allergy (Unknown, Verified 09/16/24 18:00) UNKNOWN (AND SESAME SEED) vancomycin [VANCOMYCIN] Allergy (Unknown, Verified 09/16/24 18:00) ITCHING AND REDNESS TO SKIN, itching Medication List - Last Reconciled 09/16/24 by BENJAMIN Diamond-CHELI alcohol swabs (Alcohol Pads) TID tesing topically TID; amlodipine 10 mg PO DAILY 90 days atorvastatin 20 mg PO DAILY 90 days betamethasone dipropionate 0.05% 1 appl topical BID blood-glucose sensor (FreeStyle Brinda 3 Sensor device) 2x a month buspirone 10 mg PO DAILY 90 days cetirizine 10 mg PO DAILY epinephrine 0.3 mL IM DIRECTED finasteride 5 mg orally Saturday, Saturday, Saturday schedule; fluticasone propionate 50 mcg/actuation 1 spray intranasal BID FreeStyle Lancets (lancets) TID testing NS FreeStyle Lite Meter (blood-glucose meter) TID testing NS FreeStyle Lite Strips (blood sugar diagnostic) TID testing NS lidocaine 4% 1 patch topical DAILY PRN losartan 25 mg PO DAILY 90 days omega-3 acid ethyl esters 2 caps PO BID 90 days pantoprazole 20 mg PO DAILY pumpkin seed-soy germ-Cissus 300-150 mg as directed zolpidem 5 mg PO BEDTIME PRN 30 days Tobacco use date assessed: 03/11/24 Dental Screening Dental Screen Date: 03/11/24 HPI 3 mon follow up HPI Details Pt saw ENT recently due to constantly clearing his throat, there is something stuck , further describing dysphagia. Barium swallow: 1. Small anterior bridging osteophyte at C5-C6 is causing minimal posterior indentation of the cervical esophagus. This is unlikely contributing to the patient's symptoms. 2. Mildly disorganized esophageal peristalsis.3. Nonobstructing Schatzki's ring.4. Small type I hiatal hernia with significant gastroesophageal reflux.5. Thickened appearance of the gastric rugal folds. In addition there are multiple tiny foci of contrast pooling along the lesser curvature of the stomach. These findings are suggestive of erosive gastritis. Recommend correlation with recent EGD. Pt is seeing Gastro, increased pantoprazole to 40mg daily from 20mg. He is taking antihistamine and steroid nasal spray. He reports still having excessive difficulties with clearing his throat, recommended he calls his GI for a possible repeat endo. Diabetes: A1c is 6.1 today. Pt denies any polyuria, polydipsia, does have intermittent neuropathy (right foot only). Pt is on a statin and a ARB. Pt will make his own eye appt. Pt has a strict diet [facility] Medical History Type 2 diabetes mellitus (~2022) Hemochromatosis Hypertension Dyslipidemia Tubular adenoma of colon (~2008) Lymph node enlargement Hiatal hernia GERD (gastroesophageal reflux disease) Anxiety IBS (irritable bowel syndrome) BPH (benign prostatic hyperplasia) Insomnia Arm paresthesia, right Arthritis of left leg Facet arthritis, degenerative, L5-S1 level, lumbosacral spine COVID-19 Personal history of nicotine dependence Surgical History History of endoscopy (~2022) History of excision of lesion (~2018) History of bilateral inguinal hernia repair (~2021) History of right knee surgery (~2018) History of left inguinal hernia repair (~2018) History of umbilical hernia repair (~2018) History of colonoscopy (~2022) History of cystoscopy (~2018) History of hand surgery Family History Brother History of colon cancer Mother History of breast cancer Father History of lung cancer Paternal Uncle History of lung cancer Maternal Grandmother History of heart attack Maternal Grandfather History of lung cancer Paternal Grandfather Cancer Other Mental health disorder Substance use disorder Social History Household Members: Spouse Housing: House Are you a primary critical care physician assistant to a significant other at home: No Do you presently have visiting nurse or other home services: No Alcohol intake: current Alcohol intake frequency: a few times a month Comment: previously medicated Patient Tobacco Use Status: Former Tobacco user Tobacco use type: Cigarette e-Cigarette/Vaping Use: Never Used Second Hand Smoke Exposure: Yes Substance Use Type: Marijuana service: No Current occupational status: employed 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 1. Little interest or pleasure in doing things: several days 2. Feeling down, depressed, or hopeless: not at all 3. Trouble falling or staying asleep, or sleeping too much: several days 4. Feeling tired or having little energy: several days 5. Poor appetite or overeating: several days 6. Feeling bad about yourself - or that you are a failure or have let yourself or your family down: not at all 7. Trouble concentrating on things, such as reading the newspaper or watching television: not at all 8. Moving or speaking so slowly that other people could have noticed. Or the opposite - being so fidgety or restless that you have been moving around a lot more than usual: not at all 9. Thoughts that you would be better off or of hurting yourself in some way: not at all Total score: 4 Depression Screening Interpretation: Negative Depression Screening Done: Yes 15122 - PHQ-9 Billing: Yes Source: Developed by Drs. Gigi Gee, Rosalva Villarreal, Harshal Wallace and colleagues, with an educational john from [employer]. Thrive Questionnaire Date Thrive assessed: 09/16/24 I am a: Patient What is your living situation today?: I have a steady place to live Within the past 12 months, did the food you bought not last and you didn't have the money to get more?: Never true Within the past 12 months, did you worry whether your food would run out before you got money to buy more?: Never true Do you have trouble paying for medicines?: No Do you have trouble getting transportation to medical appointments?: No Do you have trouble paying your heating and electricity bill?: No Do you have trouble taking care of your child, family member or friend?: No Do you have trouble with day-to-day activities such as bathing, preparing meals, shopping, managing finances, etc.?: No Are you currently unemployed and looking for a job?: No Are you interested in more education?: No Please select the resources that you would like help with: None Currently or been in a relationship where the following occur: No concerns reported THRIVE Score: 0 AUDIT C Alcohol Use Questionnaire (AUDIT-C) 1. How often do you have a drink containing alcohol?: 2-4 times a month 2. How many drinks containing alcohol do you have on a typical day when you are drinking?: 5 or 6 3. How often do you have six or more drinks on one occasion?: Monthly Total Score: 6 Score Reviewed/Action Taken: Yes KYLE-7 AMB Questionnaire KYLE-7 Date KYLE - 7 assessed: 09/16/24 Feeling nervous, anxious, or on edge: 1 = Several days Not being able to stop or control worryin = Not at all Worrying too much about different things: 0 = Not at all Trouble relaxin = Several days Being so restless that it is hard to sit still: 1 = Several days Becoming easily annoyed or irritable: 1 = Several days Feeling afraid as if something awful might happen: 0 = Not at all Total KYLE-7 score (0-4 normal; 5-9 mild; 10-14 moderate; 15-21 severe): 4 Source: Developed by Drs. Gigi Gee, Rosalva Villarreal, Harshal Wallace and colleagues, with an educational john from [employer]. KYLE-7 Assessment Billing KYLE-7 Assessment Tool: KYLE-7 Assessment 95014 Physical exam (Primary Care) Vital Signs: Last Vital Signs Pulse 71 09/16/24 16:19 BP 120/80 09/16/24 16:19 Pulse Ox 98 09/16/24 16:19 BMI result Body Mass Index 27.6 Tobacco/Smoking Status: Tobacco use Status Tobacco use date assessed 03/11/24 09/16/24 16:20 Patient Tobacco Use Status Former Tobacco user 09/16/24 16:20 Tobacco use type Cigarette 09/16/24 16:20 e-Cigarette/Vaping Use Never Used 09/16/24 16:20 PHQ-9: PHQ-9 Score PHQ-9: Total score 4 09/16/24 16:20 Depression Screening Interpretation: Negative Thrive Assessment: Date of Thrive Assessment Date Thrive assessed 09/16/24 09/16/24 16:20 Currently or been in a relationship where the following occur: No concerns reported Const General: cooperative, healthy appearing, comfortable, no acute distress and well developed HENMT Throat: Yes posterior oropharynx normal Neck Neck: No lymphadenopathy Resp Effort & Inspection: normal respiratory effort Auscultation: clear to auscultation bilaterally Cardio Rate: regular rate Rhythm: regular rhythm Heart sounds: S1 normal heart sound present, S2 normal heart sound present and no murmurs Extrem Other: + sensation with use of monofilament, feet intact bilat Right lower extremity: no edema Left lower extremity: no edema Psych Affect: normal affect Attitude: cooperative Thought process: Normal thought process present Thought content: Normal thought content present Insight: Good insight present (Psych) Judgement: Good judgement present (Psych) Results AMB Hemoglobin A1c AMB Hemoglobin A1c 6.1 % Last Edit by Hugo Adams CMA on 09/16/24 16:47 Results Reviewed Results Reviewed: Laboratory Last Values Hgb A1c (Clinic) 6.1 % (4.0-6.0) H 09/16/24 16:31 Coding Level of Care Code Est Pt Level 3 (56459) Diagnoses Chronic cough R05.3 Dysphagia R13.10 Type 2 diabetes mellitus E11.9 Additional Codes KYLE-7 Assessment Billing - KYLE-7 Assessment Tool: KYLE-7 Assessment 36242 ([id number]) PHQ-9 - 29595 - PHQ-9 Billing: Yes ([id number]) Assessment & Plan Assessment & Plan (1) Chronic cough: Code(s): R05.3 - Chronic cough Category: Medical Plan: seeing GI (2) Dysphagia: Code(s): R13.10 - Dysphagia, unspecified Category: Medical Plan: saw ENT, now seeing GI (3) Type 2 diabetes mellitus: Onset Date: ~2022 Comment: (DM2- dx 2022) Code(s): E11.9 - Type 2 diabetes mellitus without complications Category: Medical Plan: currently controlled Orders: Orders AMB Hemoglobin A1c Today Z13.9 - Encounter for screening, unspecified
== END ==
PROVIDERS: PCP Nurse Practitioner Family; Visit Provider Nurse Practitioner Family
DX: R05.3 Chronic cough (principal); R13.10 Dysphagia, unspecified; E11.9 Type 2 diabetes mellitus without complications; Z13.9 Encounter for screening, unspecified

== ENCOUNTER 2024-10-29 11:22 | Emergency (ER) | payer OTHER, SELFPAY ==
--- NOTE | ~2024-10-29 | XR_ITS ---
EXAMINATION: XR ABDOMEN KUB CLINICAL INDICATION: Constipation COMPARISON: CT from 09/21/2022 TECHNIQUE: AP view of the abdomen. FINDINGS: The bowel gas pattern is normal with no evidence of ileus or obstruction. Mild amount retained stool seen within the colon. No unusual soft tissue calcifications are noted. The bones are unremarkable. XR/XR KUB IMPRESSION: Mild amount of retained stool. Electronically signed by: Cristhian Erickson MD 10/29/2024 07:04 PM GARY NAVARRO
--- OUTSIDE RECORDS SUMMARY | 2024-10-29 11:24 | XMS_ITS ---
Author Organization [facility] Address [address] [place] [address] Care Team Providers Care Time Study Engineer Name Role Phone ANASTASIA TOLEDO Primary Care Provider Austin Catalan Jr Unavailable ALLERGIES Allergen (clinical drug ingredient) Drug/Non Drug Allergy documented on EMR Reaction Allergy Type Onset Date Status sesame oil Sesame Oil Unknown Drug Allergy Activ e gabapentin Gabapentin Unknown Drug Allergy Activ e fenofibrate Fenofibrate Unknown Drug Allergy Act tez Penicillin Unknown Drug Allergy Active bees, sesame seed an d oil (uncoded) Unknown Allergy Active vancomycin Vancomycin Unknown Drug Allergy Activ e Substance with sulfonamide structure and antibacterial mechanism of action (substance) Sulfa Antibiotics Unknown Drug Allergy Active REASON FOR VISIT Patient presents today for an abnormal barium swallow MEDICATIONS Medication SIG (Take, Route, Frequency, Duration) Notes Start Date End Date Status Doxycycline Hyclate 100 MG TAKE 1 TABLET BY MOUTH TWICE DAILY FOR 10 DAYS Oral for 10 Active Fluticasone Propionate 50 MCG/ACT SPRAY 1 SPRAY INTO EACH NOSTRIL TWICE A DAY Nasal for 30 Active Zolpidem Tartrate 5 MG TAKE 1 TABLET BY MOUTH AT BEDTIME NEEDED FOR INSOMNIA. MAY REPEAT 1 TIME IF NO RESPONSE IN 30-60 MINUTES Oral for 15 Active Losartan Potassium 25 MG TAKE 1 TABLET B Y MOUTH DAILY Oral for 90 Active Pantoprazole Sodium 20 MG TAKE 1 TABLET BY MOUTH DAILY Oral for 90 Active Cetirizine HCl 10 MG TAKE 1 TABLET BY MO UTH EVERY DAY Oral for 30 Active [id number] Ethyl Esters 1 GM TAKE 2 CAPSULES BY MOUTH TWICE DAILY Oral for 90 Active Finasteride 5 MG TAKE 1 TABLET BY FLACO TH DAILY Oral for 90 Active Atorvastatin Calcium 20 MG 1 tablet Oral ly Once a day Active amLODIPine Besylate 10 MG 1 tablet Orall y Once a day Active Pumpkin Seed Oil - as directed Orally Active Pantoprazole Sodium 40 MG 1 tablet 1/2 t o 1 hour before morning meal Orally Once a day for 30 day(s) 08/27/2024 Active Prostate Health Acti ve SOCIAL HISTORY Tobacco Use: Social History Observation Description Date Details (start date - stop date) Former Smoker NA - NA Sex Assigned At : Social History Observation Description Sex Assigned At Unknown Tobacco Use/Smoking Question Answer Notes Patient is a former smoker Alcohol Screen Question Answer Notes Did you have a drink contain ing alcohol in the past year? Yes How often did you have a dri nk containing alcohol in the past year? 2 to 4 times a month (2 points) How many drinks did you have on a typical day when you were drinking in the past year? 5 or 6 drinks (2 points) How often did you have 6 or more drinks on one occasion in the past year? Never (0 point) Points 4 Interpretation Positive PROBLEMS Problem Type ICD Code Onset Dates Problem Status W/U Status Risk SNOMED Code Notes Problem Gastroesophageal reflux disease, unspecified whether esophagitis present (K21.9) Active confirmed [id number] VITAL SIGNS BMI 27.48 kg/m2 08/27/2024 Blood pressure systolic 000 mm Hg 08/27/20 Blood pressure diastolic 00 mm Hg 024 Height 65 in 08/27/2024 Temperature 97.8 degrees Fahrenheit 08/27/20 Weight 165 lb 2 oz lbs 08/27/2024 Encounters Encounter Location Date Provider Diagnosis [facility] [address] [address] 08/27/2024 Austin Balderas Jr Gastroesophageal reflux disease, unspecified whether esophagitis present K21.9 ASSESSMENTS Encounter Date Diagnosis Assessment Notes Treatment Notes Treatment Clinical Notes 08/27/2024 Gastroesophageal reflux disease, unspecified whether esophagitis present (ICD-10 - K21.9) Gastroesophageal reflux disease material was printed PLAN OF TREATMENT Medication Medication Name Sig Start Date Stop Date Notes Pantoprazole Sodium 40 MG 1 tablet 1/2 t o 1 hour before morning meal Orally Once a day for 30 day(s) 08/27/2024 Treatment Notes Assessment Notes Gastroesophageal reflux dise ase, unspecified whether esophagitis present Gastroesophageal reflux disease material was printed Next Appt Details Follow Up: prn, Reason:
--- OUTSIDE RECORDS SUMMARY | 2024-10-29 11:24 | XMS_ITS ---
Author Organization [facility] Address [address] [place] [address] Care Team Providers Care Phone Circuit Operator Name Role Phone ANASTASIA TOLEDO Primary Care Provider Ming Balderas Jr, Austin Unavailable [phone] REASON FOR VISIT abnormal barium swallow MEDICATIONS Medication SIG (Take, Route, Fr equency, Duration) Notes Start Date End Date Status Omeprazole 40 MG 1 capsule 30 minutes before morning meal Orally Once a day for 90 days 01/17/2023 Active Encounters Encounter Location Date Provider Diagnosis [facility] [address] [place] [address] 07/28/2024 Austin Balderas Jr PLAN OF TREATMENT Medication Medication Name Sig Start Date Stop Date Notes Omeprazole 40 MG 1 capsule 30 minutes before morning meal Orally Once a day for 90 days 01/17/2023
--- OUTSIDE RECORDS SUMMARY | 2024-10-29 11:24 | XMS_ITS ---
Author Organization [facility] Address [address] [place] [id number] Care Team Providers Care Stand Up Comedian Name Role Phone ANASTASIA TOLEDO Primary Care Provider Ming Balderas Jr, Austin Unavailable [phone] REASON FOR VISIT refill MEDICATIONS Medication SIG (Take, Route, Fr equency, Duration) Notes Start Date End Date Status Omeprazole 40 MG 1 capsule 30 minutes before morning meal Orally Once a day for 90 days 01/17/2023 Active Encounters Encounter Location Date Provider Diagnosis [facility] [address] [place] [address] 05/24/2023 Austin Balderas Jr PLAN OF TREATMENT Medication Medication Name Sig Start Date Stop Date Notes Omeprazole 40 MG 1 capsule 30 minutes before morning meal Orally Once a day for 90 days 01/17/2023
--- OUTSIDE RECORDS SUMMARY | 2024-10-29 11:24 | XMS_ITS | Patient Health Record ---
Author Organization [facility] Address [address] [place] [address] Care Team Providers Care Flooring Mechanic Name Role Phone ANASTASIA TOLEDO Primary Care [...] Antibiotics Unknown Drug Allergy Active REASON FOR REFERRAL No Information MEDICATIONS Medication SIG (Take, Route, Frequency, Duration) Notes Start Date End Date Status Pantoprazole Sodium 40 MG 1 tablet 1/2 t o 1 hour before morning meal Orally Once a day for 30 day(s) 08/27/2024 Active Atorvastatin Calcium 20 MG 1 tablet Oral ly Once a day Active amLODIPine Besylate 10 MG 1 tablet Orall y Once a day Active Pumpkin Seed Oil - as directed Orally Active Prostate Health Acti ve Doxycycline Hyclate 100 MG TAKE 1 TABLET BY MOUTH TWICE DAILY FOR 10 DAYS Oral for 10 Active Losartan Potassium 25 MG TAKE 1 TABLET B Y MOUTH DAILY Oral for 90 Active Pantoprazole Sodium 20 MG TAKE 1 TABLET BY MOUTH DAILY Oral for 90 Active Cetirizine HCl 10 MG TAKE 1 TABLET BY MO UTH EVERY DAY Oral for 30 Active Fluticasone Propionate 50 MCG/ACT SPRAY 1 SPRAY INTO EACH NOSTRIL TWICE A DAY Nasal for 30 Active Zolpidem Tartrate 5 MG TAKE 1 TABLET BY MOUTH AT BEDTIME NEEDED FOR INSOMNIA. MAY REPEAT 1 TIME IF NO RESPONSE IN 30-60 MINUTES Oral for 15 Active Tqltd-2-ouuh Ethyl Esters 1 GM TAKE 2 CAPSULES BY MOUTH TWICE DAILY Oral for 90 Active Finasteride 5 MG TAKE 1 TABLET BY FLACO TH DAILY Oral for 90 Active IMMUNIZATIONS Vaccine Route Administration Date Status Comme nts Influenza Unknown 08/05/2024 Administered Influenza Unknown 10/24/2022 Refused SOCIAL HISTORY Tobacco Use: Social History Observation [...] W/U Status Risk SNOMED Code Notes Problem Colon cancer screening (Z12.11) Active confirmed 916495348 Problem Encounter for other preprocedural examination (Z01.818) Active confirmed 52093782 Problem Personal history of colonic polyps (Z86.010) Active confirmed 205345435 Problem Family history of colon cancer (Z80.0) Active confirmed 894982836 Problem Dysphagia, unspecified type (R13.10) Active confirmed 50081513 Problem Dysphagia (R13.10) Active confirmed Dys phagia (70566748) Problem Gastroesophageal reflux disease, unspecified whether esophagitis present (K21.9) Active confirmed 514727246 VITAL SIGNS Temperature 97.8 degrees Fahrenheit 08/27/2024 Blood pressure diastolic 00 mm Hg 08/27/2024 Height 65 in 08/27/2024 Blood pressure systolic 000 mm Hg 08/27/2024 Weight 165 lb 2 oz lbs 08/27/2024 BMI 27.48 kg/m2 08/27/2024 Encounters Encounter Location Date Provider Diagnosis [facility] [address] [place] [address] 08/27/2024 Austin Balderas Jr Gastroesophageal reflux disease, unspecified whether esophagitis present K21.9 [facility] [address] [place] [address] 07/28/2024 Austin Balderas Jr ASSESSMENTS Encounter Date Diagnosis Assessment Notes Treatment Notes Treatment Clinical Notes 08/27/2024 Gastroesophageal reflux disease, unspecified whether esophagitis present (ICD-10 - K21.9) Gastroesophageal reflux disease material was printed PLAN OF TREATMENT Future Test Test Name Order Date COLONOSCOPY 02/07/2017 COLONOSCOPY 11/01/2022 UPPER GI ENDOSCOPY 11/12/2022 Insurance Providers Payer Name Payer Address Payer Phone Subscriber Number Group Number Insured Name Patient Relationship to Insured Coverage Start Date Coverage End Date [facility] [address] [place] [address] [phone] [id number] BOB ADAMS Self - patient is the insured MEDICAL (GENERAL) HISTORY Medical History History ICD Code Colonoscopy 01/24, normal, fi ve-year followup for history of polyps and family history colon cancer. Elevated cholesterol hypertension anxiety BPH Bilateral inguinal hernias, repair Upper endoscopy 01/24, gastritis, and no H. pylori Surgical History Surgery Date(Month/Year) Hand and finger surgery 5 x hernia surgery knee surgery
[2024-10-29 11:53] VITALS: BP 131/87; PULSE 64; RESP 16; TEMP 36.6; O2SAT 97; BMI 28.3
--- NOTE | 2024-10-29 11:53 | ED_ITS ---
HPI - General Adult General Chief complaint: Abdominal Pain Stated complaint: sour stomach headache Time Seen by Provider: 10/29/24 16:01 Source: patient Mode of arrival: ambulatory Limitations: no limitations History of Present Illness ED Provider: Dr. Jinny Mccracken HPI narrative: patient comes to the emergency room complaining of 2 weeks of generalized malaise. Patient states that 2 weeks ago he came back from [place]. Patient states that initially when he came in he had a viral URI, complaining stuffy nose, runny nose, subjective fever and chills 2 weeks ago. Patient states that his URI symptoms resolved. Now, the problem is that he feels unwell, states that he would like to burp or throw up but he can not despite multiple attempts. Patient denies any abdominal pain, denies UTI symptoms. Related Data Home Medications ?Medication ?Instructions ?Recorded ?Confirmed pumpkin seed xt and soybean germ See Rx Instructions .Route .COMPLEX 12/01/21 09/16/24 300 mg-Cissus quad xt 150 mg capsule cetirizine 10 mg tablet 10 mg PO DAILY 09/16/24 09/16/24 fluticasone propionate 50 1 spray intranasal BID 09/16/24 09/16/24 mcg/actuation nasal spray,suspension Previous Rx's ?Medication ?Instructions ?Recorded lidocaine 4 % topical patch 1 patch topical DAILY PRN pain #10 11/08/22 ea buspirone 10 mg tablet 10 mg PO DAILY Anxiety 90 days #90 02/05/23 tabs alcohol swabs (Alcohol Pads) See Rx Instructions topical .TID 06/26/23 #200 ea FreeStyle Lite Meter #1 ea 06/27/23 (blood-glucose meter) FreeStyle Lancets 28 gauge #300 ea 07/25/23 (lancets) FreeStyle Lite Strips (blood sugar #300 ea 07/25/23 diagnostic) finasteride 5 mg tablet 5 mg PO .COMPLEX #90 tabs 09/30/23 blood-glucose sensor (FreeStyle #6 ea 12/10/23 Brinda 3 Sensor device) omega-3 acid ethyl esters 1 gram 2 cap PO BID 90 days #360 caps 03/23/24 capsule losartan 25 mg tablet 25 mg PO DAILY 90 days #90 tabs 05/15/24 epinephrine 0.3 mg/0.3 mL 0.3 ml IM DIRECTED allergies #2 06/02/24 injection, auto-injector ea atorvastatin 20 mg tablet 20 mg PO DAILY 90 days #90 tabs 06/10/24 pantoprazole 20 mg tablet,delayed 20 mg PO DAILY #90 tabs 07/19/24 release betamethasone dipropionate 0.05 % 1 appl topical BID #15 grams 08/26/24 topical ointment doxycycline monohydrate 100 mg 100 mg PO BID 14 days #28 caps 09/22/24 capsule penicillin V potassium 500 mg 500 mg PO BID 14 days #28 tabs 09/22/24 tablet zolpidem 5 mg tablet 5 mg PO BEDTIME PRN insomnia 30 10/05/24 days #30 tabs amlodipine 10 mg tablet 10 mg PO DAILY 90 days #90 tabs 10/19/24 Allergies Allergy/AdvReac Type Severity Reaction Status Date / Time bee pollen [BEE STINGS] Allergy Severe Swelling Verified 10/29/24 11:55 Sulfa (Sulfonamide Allergy Severe ANAPHYLAXIS Verified 10/29/24 11:55 Antibiotics) [SULFA (SULFONAMIDE ANTIBIOTICS)] levofloxacin [From Levaquin] Allergy Mild tendonitis Verified 10/29/24 11:55 fenofibrate Allergy Unknown joint pain Verified 10/29/24 11:55 gabapentin [GABAPENTIN] Allergy Unknown RASH, Verified 10/29/24 11:55 HALLUCINATIONS, hallucinations Penicillins [PENICILLINS] Allergy Unknown ANAPHYLAXIS Verified 10/29/24 11:55 sesame oil [SESAME OIL] Allergy Unknown UNKNOWN Verified 10/29/24 11:55 (AND SESAME SEED) vancomycin [VANCOMYCIN] Allergy Unknown ITCHING Verified 10/29/24 11:55 AND REDNESS TO SKIN, itching Review of Systems 2 Review of Systems: Constitutional : No Weight loss, No Fever, No Chills, No Night Sweats, No Fatigue, complaining of generalized malaise for 2 weeks ENT/Mouth : No Hearing loss, No Ear Pain, No Nasal Congestion, No Sinus Pain, No Hoarseness, No sore throat, No Rhinorrhea, No Swallowing Difficulty Eyes: No Eye Pain, No Swelling, No Redness, No Foreign Body, No Discharge, No Vision Changes Cardiovascular : No Chest Pain, No SOB, No Dyspnea on Exertion, No Orthopnea, No Edema, No Palpitations Respiratory : No Cough, No Sputum, No Wheezing, No Smoke Exposure, No Dyspnea Gastrointestinal : complaining that patient can not burp or make himself throw up despite multiple attempts, No Nausea, No Vomiting, No Diarrhea, No Constipation, No abdominal Pain, No Hematochezia, No Melena Genitourinary : no irregular bleeding, No Dysuria, No Urinary Frequency, No Hematuria, No Urinary Incontinence, No Urgency, No Flank Pain, No Urinary Flow Changes, No Hesitancy Musculoskeletal : No joint pain, No Myalgias, No Joint Swelling Skin : No Skin Lesions, No rash Neuro : No Weakness, No Numbness, No Paresthesias, No Loss of Consciousness, No Dizziness, No Headache Psych : No Anxiety/Panic, No Depression, No SI/HI/AH/VH, No Social Issues, Heme/Lymph: No Bruising, No Bleeding,No Lymphadenopathy Endocrine : No Polyuria, No Polydipsia, No Temperature Intolerance [facility] Past Medical History Medical History Type 2 diabetes mellitus (~2022) Hemochromatosis Hypertension Dyslipidemia Tubular adenoma of colon (~2008) Lymph node enlargement Hiatal hernia GERD (gastroesophageal reflux disease) Anxiety IBS (irritable bowel syndrome) BPH (benign prostatic hyperplasia) Insomnia Arm paresthesia, right Arthritis of left leg Facet arthritis, degenerative, L5-S1 level, lumbosacral spine COVID-19 Personal history of nicotine dependence Surgical History History of endoscopy (~2022) History of excision of lesion (~2018) History of bilateral inguinal hernia repair (~2021) History of right knee surgery (~2018) History of left inguinal hernia repair (~2018) History of umbilical hernia repair (~2018) History of colonoscopy (~2022) History of cystoscopy (~2018) History of hand surgery Family History Family History Brother History of colon cancer Mother History of breast cancer Father History of lung cancer Paternal Uncle History of lung cancer Maternal Grandmother History of heart attack Maternal Grandfather History of lung cancer Paternal Grandfather Cancer Other Mental health disorder Substance use disorder Social History Social History Household Members: Spouse Housing: House Are you a primary memory care program director to a significant other at home: No Do you presently have visiting nurse or other home services: No Alcohol intake: current Alcohol intake frequency: a few times a month Comment: previously medicated Patient Tobacco Use Status: Former Tobacco user Tobacco use type: Cigarette e-Cigarette/Vaping Use: Never Used Second Hand Smoke Exposure: Yes Substance Use Type: Marijuana Advance Directives: No Advance Directives Information Provided: No service: No Current occupational status: employed 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 Oriented X3. No acute distress. Eyes: Pupils equal, round and reactive to light. ENT: Pharynx normal. Neck: Normal inspection. Neck supple. No lymph nodes noted. No crepitus CVS: Normal heart rate and rhythm. Pulses normal. Normal S1 and S2 Respiratory: No respiratory distress. Breath sounds normal. No Wheezing. No rales Abdomen: Soft and nontender. No rigidity. No distention. Skin: Skin warm and dry. Normal skin color. Normal skin turgor. Extremities: No lower extremity edema. No Lacerations. No Rash Neuro: Oriented X 3. No motor deficit. No sensory deficit. Moving all extremities. No slurred speech. CN 2 through 12 grossly intact Psych: calm, cooperative, normal affect Course Course Course Narrative: RME, this is a rapid medical exam performed by Damon Ludwig please refer to primary provider for complete H&P- 64 year old male presents for evaluation of abdominal pain with nausea for the last 2 weeks. He reports that he is unable to vomit or belch. He reports previous hernia repair surgery. Denies any fevers, chills. He does endorse a headache. Plan for labs, viral swabs. Will defer any advanced imaging to primary ER provider Medications Administered Discontinued Medications Generic Name Dose Route Start Last Admin Trade Name Freq PRN Reason Stop Dose Admin Al Hydroxide/Mg Hydroxide 30 ml 10/29/24 16:21 10/29/24 16:28 Magnesium Hydrox/Alum Hydrox 30 Ml Oral.Susp PO 10/29/24 16:22 30 ml ONCE ONE Administration Lidocaine HCl 15 ml 10/29/24 16:21 10/29/24 16:28 Lidocaine Hcl Viscous 2 % 15 Ml Solution MUCOUS MEM 10/29/24 16:22 15 ml ONCE ONE Administration Medical Decision Making Medical Decision Making [facility] Narrative: my interpretation of labs: Patient's hematology within normal limits, chemistry within normal limits, LFTs, lipase normal , COVID/flu/RSV test negative patient's physical exam is unremarkable, patient is well-appearing, abdominal pain within normal limits. urinalysis negative for UTI KUB my interpretation: Normal air gas pattern patient is well-appearing, walking around the hallway, talking to people, seems to be feeling well. radiology reports are running a bit behind, patient is requesting to be discharged home and he will follow-up with his PCP. Earlier today, patient got a GI cocktail and states that feels much better Differential Diagnosis Differential Diagnoses: The differential diagnosis associated with the presentation includes ( COVID, RSV, viral syndrome, SBO) Lab Data [facility] Lab Attestation statement: I reviewed the patient's lab results. 10/29/24 12:00 10/29/24 12:00 Labs: Lab Results 10/29/24 10/29/24 Range/Units 12:00 16:09 WBC 5.9 (4.8-10.8) X10*3/uL RBC 4.97 (4.60-5.80) X10*6/uL Hgb 13.5 L (14.0-18.0) g/dl Hct 41.4 L (42.0-52.0) % MCV 83.3 (80.0-98.0) fL MCH 27.2 (27.0-33.0) pg MCHC 32.6 (31.0-36.0) g/dl RDW 14.8 (11.0-16.0) % Plt Count 366 (160-400) X10*3/uL MPV 8.7 L (9.4-12.4) fL Immature Gran % (Auto) 0.3 (0.0-0.4) % Neut % (Auto) 62.4 (45-73) % Lymph % (Auto) 25.6 (20-40) % Mcdonough % (Auto) 10.7 (2-11) % Eos % (Auto) 0.5 (0-4) % Baso % (Auto) 0.5 (0-2) % Lymph # (Auto) 1.5 (1.2-4.9) X10*3/uL Mcdonough # (Auto) 0.6 (0.1-1.2) X10*3/uL Eos # (Auto) 0.0 (0.0-0.4) X10*3/uL Baso # (Auto) 0.0 (0.0-0.2) X10*3/uL Abs Immat Gran (auto) 0.02 (0.00-0.03) X10*3/uL Absolute Neuts (auto) 3.7 (2.0-8.3) x10*3/uL Absolute Nucleated RBC 0.000 (0.0-0.012) X10*3/uL Nucleated RBC % (auto) 0.0 (0.0-0.2) /100WBC PT 11.7 (10.9-12.4) SEC INR 1.0 (0.9-1.1) Sodium 141 (135-145) mmol/L Potassium 3.8 (3.3-5.1) mmol/L Chloride 108 (96-108) mmol/L Carbon Dioxide 29 (22-29) mmol/L Anion Gap 8 L (12-20) BUN 13 (9-16) mg/dL Creatinine 0.87 (0.5-1.4) mg/dL Estim Creat Clear Calc 84.3 Estimated GFR > 60 Random Glucose 139 H (60-115) mg/dL Lactic Acid 0.9 (0.5-2.0) mmol/L Calcium 9.2 (8.4-10.2) mg/dL Total Bilirubin 0.7 (0.0-1.0) mg/dL AST 19 (5-37) U/L ALT 29 (0-40) U/L Alkaline Phosphatase 53 (39-117) U/L Total Protein 7.2 (6.5-8.0) g/dL Albumin 4.6 (3.5-5.0) g/dL Lipase 18 (8-78) U/L Urine Color Yellow Urine Appearance Clear Urine pH 7.0 (5.0-9.0) Ur Specific [place] 1.020 (1.005-1.025) Urine Protein Negative (Neg-Trace) mg/dL Urine Glucose (UA) Negative (Negative) mg/dL Urine Ketones Negative (Negative) mg/dL Urine Blood Negative (Negative) Urine Nitrite Negative (Negative) Ur Leukocyte Esterase Negative (Negative) Urine RBC 0-2 (0-2) /HPF Urine WBC 0-5 (0-5) /HPF Ur Squamous Epith Cells 0-2 (0-2) /HPF Urine Bacteria None Seen (None Seen) Hyaline Casts 0-2 (0-2) /LPF Influenza Type A (PCR) NEGATIVE (Negative) Influenza Type B (PCR) NEGATIVE (Negative) RSV RNA Qual (PCR) NEGATIVE (Negative) SARS-CoV-2 RNA (RT-PCR) NEGATIVE (Negative) Independent Interpretation I performed an independent interpretation of an: Plain X-Ray Discharge Plan Discharge Clinical Impression: Acute viral syndrome, Abdominal discomfort Patient Disposition: Home, Self-Care Instructions: Abdominal Pain (ED), Viral Syndrome (ED) Additional Instructions: Please follow-up with your primary care physician tomorrow. If you have any worsening or new symptoms, please return to the emergency room or call 911 Prescriptions: No Action buspirone 10 mg tablet 10 mg PO DAILY 90 Days Qty: 90 1RF alcohol swabs [Alcohol Pads] Pads, Medicated See Rx Instructions topical .TID Qty: 200 0RF Rx Instructions: TID tesing topically TID; (DME) blood-glucose meter [FreeStyle Lite Meter] Kit See Rx Instructions .Route Qty: 1 0RF Rx Instructions: TID testing (DME) FreeStyle Lite Strips Strip See Rx Instructions .Route Qty: 300 1RF Rx Instructions: TID testing (DME) lancets [FreeStyle Lancets] 28 gauge misc See Rx Instructions .Route Qty: 300 1RF Rx Instructions: TID testing finasteride 5 mg tablet 5 mg PO .COMPLEX Qty: 90 1RF Rx Instructions: 5 mg orally Saturday, Saturday, Saturday schedule; (DME) FreeStyle Brinda 3 Sensor Device See Rx Instructions .Route Qty: 6 1RF Rx Instructions: 2x a month omega-3 acid ethyl esters 1 gram capsule 2 cap PO BID 90 Days Qty: 360 1RF losartan 25 mg tablet 25 mg PO DAILY 90 Days Qty: 90 1RF atorvastatin 20 mg tablet 20 mg PO DAILY 90 Days Qty: 90 1RF pantoprazole 20 mg tablet,delayed release (DR/EC) 20 mg PO DAILY Qty: 90 0RF betamethasone dipropionate 0.05 % ointment 1 appl topical BID Qty: 15 0RF Rx Instructions: Thin coat 2 times per day doxycycline monohydrate 100 mg capsule 100 mg PO BID 14 Days Qty: 28 0RF penicillin V potassium 500 mg tablet 500 mg PO BID 14 Days Qty: 28 0RF zolpidem 5 mg tablet 5 mg PO BEDTIME PRN (Reason: insomnia) 30 Days Qty: 30 0RF Rx Instructions: may repeat once if no response in 30-60 minutes amlodipine 10 mg tablet 10 mg PO DAILY 90 Days Qty: 90 1RF pumpkin seed-soy germ-Cissus 300-150 mg Capsule See Rx Instructions .ROUTE .COMPLEX Rx Instructions: as directed epinephrine 0.3 mg/0.3 mL auto-injector 0.3 ml IM DIRECTED Qty: 2 0RF lidocaine 4 % adhesive patch,medicated 1 patch topical DAILY PRN (Reason: pain) Qty: 10 4RF cetirizine 10 mg tablet 10 mg PO DAILY fluticasone propionate 50 mcg/actuation spray,suspension 1 spray intranasal BID Print Language: Bulgarian
[2024-10-29 12:06] LABS: MANUAL DIFF FLAG NO
[2024-10-29 12:10] LABS: Basophils Percent Auto 0.5 % (0-2); Eosinophils Percent Auto 0.5 % (0-4); Hematocrit 41.4 % (42.0-52.0); Hemoglobin 13.5 g/dl (14.0-18.0); Imm Gran Abs Auto 0.02 X10*3/uL (0.00-0.03); Imm Gran Pct Auto 0.3 % (0.0-0.4); Lymphocytes Absolute Auto 1.5 X10*3/uL (1.2-4.9); Lymphocytes Percent Auto 25.6 % (20-40); Mean Corpuscular HGB Conc 32.6 g/dl (31.0-36.0); Mean Corpuscular Hemoglobin 27.2 pg (27.0-33.0); Mean Corpuscular Volume 83.3 fL (80.0-98.0); Mean Platelet Volume 8.7 fL (9.4-12.4); Monocytes Absolute Auto 0.6 X10*3/uL (0.1-1.2); Monocytes Percent Auto 10.7 % (2-11); Neutrophils Absolute Auto 3.7 x10*3/uL (2.0-8.3); Neutrophils Percent Auto 62.4 % (45-73); Platelet Count 366 X10*3/uL (160-400); Red Blood Count 4.97 X10*6/uL (4.60-5.80); Red Cell Distribution Width 14.8 % (11.0-16.0); White Blood Count 5.9 X10*3/uL (4.8-10.8)
[2024-10-29 12:14] LABS: Prothrombin Time 11.7 SEC (10.9-12.4)
[2024-10-29 12:21] LABS: Alanine Aminotransferase 29 U/L (0-40); Albumin Level 4.6 g/dL (3.5-5.0); Alkaline Phosphatase 53 U/L (39-117); Anion Gap 8 (12-20); Aspartate Amino Transferase 19 U/L (5-37); Bilirubin Total 0.7 mg/dL (0.0-1.0); Blood Urea Nitrogen 13 mg/dL (9-16); Calcium 9.2 mg/dL (8.4-10.2); Carbon Dioxide 29 mmol/L (22-29); Chloride 108 mmol/L (96-108); Creatinine Clr Calc Pharmacy 84.3; Estimated Glomerular Filt Rate > 60; Glucose Random 139 mg/dL (60-115); Lactic Acid 0.9 mmol/L (0.5-2.0); Lipase 18 U/L (8-78); Potassium 3.8 mmol/L (3.3-5.1); Sodium 141 mmol/L (135-145); Total Protein 7.2 g/dL (6.5-8.0)
[2024-10-29 12:49] LABS: Influenza A PCR NEGATIVE (Negative); Influenza B PCR NEGATIVE (Negative); Resp Syncy Virus RNA Qual PCR NEGATIVE (Negative); SARS COV2 PCR INHOUSE NEGATIVE (Negative)
[2024-10-29 16:16] LABS: Appearance Urine Clear; Color Urine Yellow; Glucose Urine UA Negative (Negative); Leukocyte Esterase Urine Negative (Negative); Nitrite Urine Negative (Negative); Urine Blood Negative (Negative); Urine Ketones Negative (Negative); Urine Protein Negative (Neg-Trace)
[2024-10-29 16:18] LABS: Bacteria Urine None Seen (None Seen); Hyaline Casts Urine 0-2 /LPF (0-2); RBC Urine 0-2 /HPF (0-2); Squamous Epithelial Cell Urine 0-2 /HPF (0-2); WBC Urine 0-5 /HPF (0-5)
--- NOTE | 2024-10-29 16:27 | ECG_ITS ---
Test Reason : ABDOMINAL PAIN Blood Pressure : / mmHG Vent. Rate : 047 BPM Atrial Rate : 047 BPM P-R Int : 194 ms QRS Dur : 088 ms QT Int : 438 ms P-R-T Axes : 023 027 006 degrees QTc Int : 387 ms Sinus bradycardia Cannot rule out Anterior infarct , age undetermined Abnormal ECG When compared with ECG of 17-JUN-2019 11:42, No significant change was found Referred By: Jinny Mccracken Electronically Signed By:BRANDI DYKES MD
[2024-10-29] MEDS: Magnesium Hydrox/Alum Hydrox 30 ML ORAL.SUSP PO (16:28)
[2024-10-29] MEDS: Lidocaine HCl Viscous 2 % 15 ML SOLUTION MUCOUS MEM (16:28)
[2024-10-29 17:31] VITALS: BP 124/94; PULSE 62; RESP 16; TEMP 36.5; O2SAT 96
[2024-10-29 18:00] VITALS: BP 134/89; PULSE 66; RESP 16; TEMP 36.3; O2SAT 98
[2024-10-29 19:00] VITALS: BP 130/80; PULSE 70; RESP 16; TEMP 36.6
== END 2024-10-29 19:01 | disposition home or self-care (01) ==
PROVIDERS: Physician Assistant; Emergency Provider Emergency Medicine; PCP Nurse Practitioner Family
DX: B34.9 Viral infection, unspecified (principal); R10.9 Unspecified abdominal pain; E11.9 Type 2 diabetes mellitus without complications; I10 Essential (primary) hypertension; E78.5 Hyperlipidemia, unspecified; K21.9 Gastro-esophageal reflux disease without esophagitis; Z87.891 Personal history of nicotine dependence; R05.3 Chronic cough; Z03.818 Encounter for observation for suspected exposure to other biological agents ruled out; Z79.02 Long term (current) use of antithrombotics/antiplatelets; Z79.899 Other long term (current) drug therapy
CPT/HCPCS: 0241U; 74018; 80053; 81001; 83605; 83690; 85025; 85610; 93005; 99283; 99285

== ENCOUNTER → 2024-10-29 16:27 | Outpatient (BNV) | payer OTHER, SELFPAY | PROVIDERS: Emergency Provider Emergency Medicine; PCP Nurse Practitioner Family; Visit Provider Internal Medicine Cardiovascular Disease | DX: R94.31 Abnormal electrocardiogram [ECG] [EKG] (principal) | CPT/HCPCS: 93010 ==

== ENCOUNTER 2024-11-20 09:20 | Day surgery (SDC) | payer OTHER, SELFPAY ==
--- OUTSIDE RECORDS SUMMARY | 2024-11-12 12:50 | XMS_ITS | Patient Health Record ---
Author Organization [facility] Address [address] [place] [address] Care Team Providers Care Bottom Finisher Name Role Phone ANASTASIA TOLEDO Primary Care [...] IN 30-60 MINUTES Oral for 15 Active [id number] Ethyl Esters 1 GM TAKE 2 CAPSULES [...] Problem Colon cancer screening (Z12.11) Active confirmed 036889625 Problem Encounter for other preprocedural examination (Z01.818) Active confirmed 88476570 Problem Personal history of colonic polyps (Z86.010) Active confirmed 201899195 Problem Family history of colon cancer (Z80.0) Active confirmed 925072178 Problem Dysphagia, unspecified type (R13.10) Active confirmed 07721109 Problem Dysphagia (R13.10) Active confirmed Dys phagia (31297981) Problem Gastroesophageal reflux disease, unspecified whether esophagitis present (K21.9) Active confirmed 122682888 VITAL SIGNS Temperature 97.8 degrees Fahrenheit 08/27/2024 Blood pressure diastolic 00 mm Hg 08/27/2024 Height 65 in 08/27/2024 Blood pressure systolic 000 mm Hg 08/27/2024 Weight 165 lb 2 oz lbs 08/27/2024 BMI 27.48 kg/m2 08/27/2024 Encounters Encounter Location Date Provider Diagnosis [facility] [address] [place] [address] 08/27/2024 Austin Balderas Jr Gastroesophageal reflux disease, unspecified whether esophagitis present K21.9 [facility] [address] [place] [address] 07/28/2024 Austin Balderas Jr [facility] [address] [place] [address] 11/09/2024 Austin Balderas Jr ASSESSMENTS Encounter Date Diagnosis Assessment Notes Treatment Notes Treatment Clinical Notes 08/27/2024 Gastroesophageal reflux disease, unspecified whether esophagitis present (ICD-10 - K21.9) Gastroesophageal reflux disease material was printed PLAN OF TREATMENT Future Test Test Name Order Date COLONOSCOPY 02/07/2017 COLONOSCOPY 11/01/2022 UPPER GI ENDOSCOPY 11/12/2022 Next Appt Details Provider Name:Austin junior Jr, 11/20/2024 01:10:00 PM, [address] [place] [address] , [place], [place], [phone], Insurance Providers Payer Name Payer Address Payer Phone Subscriber Number Group Number Insured Name Patient Relationship to Insured Coverage Start Date Coverage End Date [facility] [address] [place] [phone] [id number] BOB ADAMS Self - patient is the [...]
--- OUTSIDE RECORDS SUMMARY | 2024-11-12 12:50 | XMS_ITS ---
Author Organization [facility] Address [address] [place] [address] Care Team Providers Care Factory Maintenance Technician Name Role Phone ANASTASIA TOLEDO Primary Care Provider Austin Catalan Jr Unavailable REASON FOR VISIT update Encounters Encounter Location Date Provider Diagnosis [facility] [address] [facility] [address] [place] [phone] 11/09/2024 Austin Balderas Jr PLAN OF TREATMENT Next Appt Details Provider Name:Austin junior Jr, 11/20/2024 01:10:00 PM, [address] [place] [address] , [place], [place], [phone],
--- OUTSIDE RECORDS SUMMARY | 2024-11-12 12:50 | XMS_ITS ---
Author Organization [facility] Address [address] [place] [address] Care Team Providers Care Director Oncology Name Role Phone ANASTASIA TOLEDO Primary Care Provider Ming Balderas Jr, Austin Zaman REASON FOR VISIT abnormal barium swallow MEDICATIONS Medication SIG (Take, Route, Fr equency, Duration) Notes Start Date End Date Status Omeprazole 40 MG 1 capsule 30 minutes before morning meal Orally Once a day for 90 days 01/17/2023 Active Encounters Encounter Location Date Provider Diagnosis [facility] [address] [place] [phone] 07/28/2024 Austin Balderas Jr PLAN OF TREATMENT Medication Medication Name Sig Start Date Stop Date Notes Omeprazole 40 MG 1 capsule 30 minutes before morning meal Orally Once a day for 90 days 01/17/2023 Next Appt Details Provider Name:Austin junior Jr, 11/20/2024 01:10:00 PM, [address] [place] [address] , [place], [place], [phone],
--- OUTSIDE RECORDS SUMMARY | 2024-11-12 12:50 | XMS_ITS ---
Author Organization [facility] Address [address] [place] [address] Care Team Providers Care Dough Raiser Name Role Phone ANASTASIA TOLEDO Primary Care [...] UTH EVERY DAY Oral for 30 Active Oxxds-5-jnck Ethyl Esters 1 GM TAKE 2 CAPSULES [...] unspecified whether esophagitis present (K21.9) Active confirmed [id number] VITAL SIGNS BMI 27.48 kg/m2 08/27/2024 Blood pressure systolic 000 mm Hg 08/27/20 Blood pressure diastolic 00 mm Hg 024 Height 65 in 08/27/2024 Temperature 97.8 degrees Fahrenheit 08/27/20 Weight 165 lb 2 oz lbs 08/27/2024 Encounters Encounter Location Date Provider Diagnosis [facility] [address] [address] 08/27/2024 Austin Balderas Jr Gastroesophageal reflux disease, [...] Next Appt Details Follow Up: prn, Reason: Provider Name:Austin junior Jr, 11/20/2024 01:10:00 PM, [address] [place] [address], [phone],
--- NOTE | 2024-11-19 12:52 | P.CONAN_ITS ---
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 Pt unaware of diagnosis. Denies stridor. Denies issue with intubation in the past. GA 2019 and 2021 with LMA only. PMFSH Active Problems Active Problems: All Active Problems Chronic cough (Acute) Lymphadenopathy (Acute) Neck pain (Acute) Penile anomalies (Acute) Dyslipidemia (Acute) Hemochromatosis (Acute) Elevated ferritin level (Acute) Hypertension (Acute) Type 2 diabetes mellitus (Acute ~2022) Personal history of nicotine dependence (Acute) Dysphagia (Acute) GERD (gastroesophageal reflux disease) (Acute) IBS (irritable bowel syndrome) (Acute) Tubular adenoma of colon (Acute ~2008) Prostatitis (Acute) Chest pain (Acute) Tinnitus (Acute) BPH (benign prostatic hyperplasia) (Acute) Insomnia (Acute) Decreased sex drive (Acute) Left groin pain (Acute) Vocal cord edema (Acute) Hemorrhoids with complication (Acute) Past Medical History Medical History Type 2 diabetes mellitus (~2022) Hemochromatosis Hypertension Dyslipidemia Tubular adenoma of colon (~2008) Lymph node enlargement Hiatal hernia GERD (gastroesophageal reflux disease) Anxiety IBS (irritable bowel syndrome) BPH (benign prostatic hyperplasia) Insomnia Arm paresthesia, right Arthritis of left leg Facet arthritis, degenerative, L5-S1 level, lumbosacral spine COVID-19 Personal history of nicotine dependence Family History Family History Brother History of colon cancer Mother History of breast cancer Father History of lung cancer Paternal Uncle History of lung cancer Maternal Grandmother History of heart attack Maternal Grandfather History of lung cancer Paternal Grandfather Cancer Other Mental health disorder Substance use disorder Family history of problems with anesthesia: No Surgical History Surgical History History of endoscopy (~2022) History of excision of lesion (~2018) History of bilateral inguinal hernia repair (~2021) History of right knee surgery (~2018) History of left inguinal hernia repair (~2018) History of umbilical hernia repair (~2018) History of colonoscopy (~2022) History of cystoscopy (~2018) History of hand surgery History of Problems with Anesthesia: No Social History Social History Household Members: Spouse Housing: House Are you a primary floor care technician to a significant other at home: No Do you presently have visiting nurse or other home services: No Alcohol intake: current Alcohol intake frequency: a few times a month Comment: previously medicated Patient Tobacco Use Status: Former Tobacco user Tobacco use type: Cigarette e-Cigarette/Vaping Use: Never Used Second Hand Smoke Exposure: Yes Substance Use Type: Marijuana service: No Current occupational status: employed 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 Cognitive needs: No Hearing needs: No Vision needs: No Meds Allergies Allergy/AdvReac Type Severity Reaction Status Date / Time bee pollen [BEE STINGS] Allergy Severe Swelling Verified 10/29/24 11:55 Sulfa (Sulfonamide Allergy Severe ANAPHYLAXIS Verified 10/29/24 11:55 Antibiotics) [SULFA (SULFONAMIDE ANTIBIOTICS)] levofloxacin [From Levaquin] Allergy Mild tendonitis Verified 10/29/24 11:55 fenofibrate Allergy Unknown joint pain Verified 10/29/24 11:55 gabapentin [GABAPENTIN] Allergy Unknown RASH, Verified 10/29/24 11:55 HALLUCINATIONS, hallucinations Penicillins [PENICILLINS] Allergy Unknown ANAPHYLAXIS Verified 10/29/24 11:55 sesame oil [SESAME OIL] Allergy Unknown UNKNOWN Verified 10/29/24 11:55 (AND SESAME SEED) vancomycin [VANCOMYCIN] Allergy Unknown ITCHING Verified 10/29/24 11:55 AND REDNESS TO SKIN, itching Home Medications ?Medication ?Instructions ?Recorded ?Confirmed ?Last Taken ?Type pumpkin seed xt and soybean germ See Rx Instructions .Route .COMPLEX 12/01/21 09/16/24 Unknown History 300 mg-Cissus quad xt 150 mg capsule cetirizine 10 mg tablet 10 mg PO DAILY 09/16/24 09/16/24 Unknown History fluticasone propionate 50 1 spray intranasal BID 09/16/24 09/16/24 Unknown History mcg/actuation nasal spray,suspension Exam Pertinent Lab Results Pertinent Lab Results: Laboratory Tests 10/29/24 12:00 WBC 5.9 Hgb 13.5 L Hct 41.4 L Plt Count 366 Sodium 141 Potassium 3.8 Chloride 108 Carbon Dioxide 29 BUN 13 Creatinine 0.87 Narrative Narrative: EKG 10/2024 Vent. Rate : 047 BPM Atrial Rate : 047 BPM P-R Int : 194 ms QRS Dur : 088 ms QT Int : 438 ms P-R-T Axes : 023 027 006 degrees QTc Int : 387 ms Sinus bradycardia Cannot rule out Anterior infarct , age undetermined Abnormal ECG When compared with ECG of 17-JUN-2019 11:42, No significant change was found Assessment and Plan Assessment Anesthesia Assessment: Chart Reviewed Final Anesthetic Review Family History of Problems with Anesthesia: No History of Problems with Anesthesia: No
[2024-11-20 09:44] VITALS: BMI 27.8
[2024-11-20] MEDS: Lactated Ringers 1,000 ML 100 ML IVCONT (10:06)
[2024-11-20 10:11] VITALS: BP 118/80; PULSE 59; RESP 14; TEMP 36.6; O2SAT 118
[2024-11-20 10:13] LABS: Glucose, Whole Blood 146 mg/dL (60-115)
--- NOTE | 2024-11-20 10:28 | MHC.SHP ---
Pre-Procedural Eval Section A - 24 Hr Update-Section A only Date of Service: 11/20/24 Section B - Complete if H&P > 30 days Chief Complaint: Abnormal findings on diagnostic imaging of other p Details of Present Illness: see H&P no changes Relevant Family History (Specify if Yes): No Relevant Social History: None Present Medications: see Short Stay Collaborative assessment Medical History: No relevant PMH Allergies: Allergies Allergy/AdvReac Type Severity Reaction Status Date / Time bee pollen [BEE STINGS] Allergy Severe Swelling Verified 11/20/24 09:33 Sulfa (Sulfonamide Allergy Severe ANAPHYLAXIS Verified 11/20/24 09:33 Antibiotics) [SULFA (SULFONAMIDE ANTIBIOTICS)] levofloxacin [From Levaquin] Allergy Mild tendonitis Verified 11/20/24 09:33 fenofibrate Allergy Unknown joint pain Verified 11/20/24 09:33 gabapentin [GABAPENTIN] Allergy Unknown RASH, Verified 11/20/24 09:33 HALLUCINATIONS, hallucinations Penicillins [PENICILLINS] Allergy Unknown ANAPHYLAXIS Verified 11/20/24 09:33 sesame oil [SESAME OIL] Allergy Unknown UNKNOWN Verified 11/20/24 09:33 (AND SESAME SEED) vancomycin [VANCOMYCIN] Allergy Unknown ITCHING Verified 11/20/24 09:33 AND REDNESS TO SKIN, itching Review of Systems Sugical H&P ROS: Negative: Constitution, Cardiovascular, Respiratory, Neurological, Psychiatric, Hem-Onc, Allergic/Immunologic, Gastrointestinal, Genitourinary, Musculoskeletal, Integumentary, Endocrine and Eyes/Ears/Nose/Throat Exam Surgical H&P Exam: Normal: HEENT, Normal: Heart, Normal: Lungs, Normal: Extremities, Normal: Abdomen, Normal: Skin and Normal: Neurological Plan Diagnosis/Plan: Unchanged I have reviewed the history and physical and performed a pertinent physical examination on my patient. No changes have occurred unless specified. Time Spent With Patient Time: Total time managing care of this patient today ____ minutes.
[2024-11-20 11:02] VITALS: BP 119/72; PULSE 80; RESP 12; TEMP 37.1; O2SAT 98
--- NOTE | 2024-11-20 11:03 | P.BOP_ITS ---
Brief Operative Note Date of Service: 11/20/24 Pre-op diagnosis: abnl ugi series Post-op diagnosis: same Procedure: egd Surgeon: Austin Balderas MD Anesthesia: MAC Was an Poising Inspector used for this Procedure?: No Estimated blood loss (mL): 2 Pathology: other Condition: stable Disposition: PACU
[2024-11-20 11:17] VITALS: BP 100/62; PULSE 72; RESP 18; TEMP 36.5; O2SAT 96
--- NOTE | 2024-11-20 11:20 | OP_ITS ---
DATE OF SERVICE: 11/20/2024 SURGEON: Austin Balderas MD INDICATIONS: Dysphagia, gastroesophageal reflux disease, and abnormal upper GI series. PREOPERATIVE DIAGNOSIS: POSTOPERATIVE DIAGNOSIS: PROCEDURE PERFORMED: Upper endoscopy with balloon dilation and biopsy. ESTIMATED BLOOD LOSS: COMPLICATIONS: ANESTHESIA: Monitored anesthesia care. ASSISTANTS: SPECIMENS: DESCRIPTION OF PROCEDURE: A history and physical was performed. The risks and benefits of the procedure were explained to the patient, and informed consent was obtained. The patient was placed in the left lateral decubitus position. The Olympus video gastroscope was introduced into the esophagus, stomach, and duodenum. Examination was performed. The scope was removed. He tolerated the procedure well and was returned to the recovery area in stable condition. FINDINGS: Esophagus: The esophagus showed irregular EG junction. There was no esophagitis. Biopsies were obtained from the EG junction following balloon dilation of both the upper and lower esophageal sphincters to 20 mm for 60 seconds each. There was no stricture identified. Stomach: The stomach showed no evidence of masses or ulcers. Antral biopsies were obtained to rule out H pylori. Duodenum: The bulb and 2nd portion were normal. IMPRESSION: 1. Gastroesophageal reflux disease. 2. Dysphagia. RECOMMENDATION: Follow up the biopsy results. MD CHELI Gomez/JUICE / [id number]
[2024-11-20 11:32] VITALS: BP 102/70; PULSE 68; RESP 18; TEMP 36.7; O2SAT 96
[2024-11-20 11:47] VITALS: BP 105/63; PULSE 60; RESP 18; TEMP 36.6; O2SAT 96
[2024-11-20 12:02] VITALS: BP 111/73; PULSE 57; RESP 18; TEMP 36.6; O2SAT 96
== END 2024-11-20 13:00 | disposition home or self-care (01) ==
PROVIDERS: PCP Nurse Practitioner Family; Visit Provider Internal Medicine Gastroenterology
PROC: 0DJ08ZZ Inspection of Upper Intestinal Tract, Via Natural or Artificial Opening Endoscopic (ICD-10-PCS; CPT 43235; principal; 2024-11-20 13:10)
DX: R13.10 Dysphagia, unspecified (principal); K21.9 Gastro-esophageal reflux disease without esophagitis; K22.89 Other specified disease of esophagus; K29.50 Unspecified chronic gastritis without bleeding; Z80.0 Family history of malignant neoplasm of digestive organs; I10 Essential (primary) hypertension; N40.0 Benign prostatic hyperplasia without lower urinary tract symptoms; E78.00 Pure hypercholesterolemia, unspecified; F41.9 Anxiety disorder, unspecified; Z79.51 Long term (current) use of inhaled steroids; Z79.899 Other long term (current) drug therapy; Z98.890 Other specified postprocedural states; Z88.0 Allergy status to penicillin; Z88.8 Allergy status to other drugs, medicaments and biological substances; Z87.891 Personal history of nicotine dependence
CPT/HCPCS: 43249; 43239; 82947; 88305; 88342; C1726; J2003; J2704

== ENCOUNTER 2025-03-08 11:01 | Outpatient (REF) | payer OTHER, SELFPAY ==
[2025-03-08 12:24] LABS: Iron 34 mcg/dL (45-160); Percent Iron Saturation 12 % (15-50); Total Iron Binding Capacity 280 mcg/dL (228-428); Unsaturated Iron Binding 246 ug/dL
[2025-03-08 12:39] LABS: Ferritin 7 ng/mL (20-250)
--- OUTSIDE RECORDS SUMMARY | 2025-03-08 12:44 | XMS_ITS | Patient Health Record ---
Author Organization [facility] Address [address] [place] [address] Care Team Providers Care Slab Polisher Name Role Phone ANASTASIA CHAN Primary Care Provider Austin Catalan Jr Unavailable Allergies Allergen (clinical drug ingredient) Drug/Non Drug Allergy [...] (substance) Sulfa Antibiotics Unknown Drug Allergy Active Results Component Value Reference Range Notes Glucose, Whole Blood Reviewed date:11/20/2024 11:15:37 PM Interpretation: Performing Lab:[facility], [address] [place] [phone] Notes/Report: Glucose, Whole Blood 146 60-115 mg/dL METER # : [id number] Pathology Reviewed date:11/26/2024 02:42:15 PM Interpretation: Performing Lab:[facility], [address] [place] [phone] Notes/Report: ------- Name: Wyatt Estrada Age/Sex: 64/M : 1960 [facility]#: [id number] Unit#: [id number] Attend Dr: Austin Balderas MD Re11/20/24 Status : [facility] Location: [facility] Disch: ------- SPEC : [id number] RECD: 11/20/24 STATUS: ALF SAM NUM: [id number] HARRIS: 11/20/24-[address] [facility] [address]: Austin Balderas MD ENTERED: 11/20/24 56 SP TYPE: Surgical OTHR DR: Anastasia Chan [facility] ORDERED: HE Stain/6, Gross Micro L4/2, IHC, H. pylori, Eso bx BA w/exc Addendum Addendum 1 Entered: 11/25/24 Immunostain for H. p sukiori on A is negative. Control stains appropriately. Addendum Signed (signature on file) Ebonie Luis 11/25/24931 ------- Diagnosis A. Gastric antrum, b iopsy: Gastric antral mucosa with mild reactive changes and minimal chronic inactive gas tritis; negative for intestinal metaplasia and dysplasia. B. Esophagogastric junction, biopsy: Squamocolumnar mucosa with mild chronic inflammation and foc al intestinal metaplasia; negative for dysplasia (see comment). Comment: (A): Immunostain for H. pylori pending; addendum to follow. 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 Clinical and endoscopic correlation is advised. Clinical History Pre-Op Dx: Abnormal upper GI series Post-Op Dx: GERD, dysphagia Microscopic Description Microscopic sections reviewed. Material Received A. Antral bx's B. EG junction bx's CONTINUED ON NEXT PAGE ------- Name: Wyatt Estrada Sheldon Age/Sex: 64/M : 1960 Unit#: [id number] Attend Dr: Austin Balderas MD Re11/20/24 Status : [facility] Location: [facility] Disch: ------- SPEC : [id number] RECD: 11/20/24-1140 STATUS: ALF SAM NUM: [id number] HARRIS: 11/20/24-[address] [facility] [address]: Austin Balderas MD ENTERED: 11/20/24-11 56 SP TYPE: Surgical OTHR DR: Anastasia Chan [facility]- ORDERED: HE Stain/6, Gross Micro L4/2, IHC, H. pylori, Eso bx BA w/exc Gross Description Received in 2 parts. A. Received in forma linda labeled ?antral biopsies? are 2 fragments of ivory-white soft tissue measuring 0.2 and 0. 5 cm in greatest dimension which are wrapped in lens paper and entirely submitted for micros copic examination, 2 pieces in cassette A. B. Received in forma linda labeled ?EG junction biopsies? are 4 fragments of pink white soft tissue measuring 0.3 -0.5 cm in greatest dimension which are wrapped in lens paper and entirely submitted f or microscopic examination, 4 pieces in cassette B. [facility] Special studies orde red and performed: Immunostain for H. pylori on A1. Copies To: Austin Balderas MD [facility] [address] [place] [address] [address] [place], [place] [id number] Anastasia Chan [facility], [place] [address] [place], [place] [phone] ------- Signed (si gnature on file) Ebonie Toby 11/23/24 1316 ------- END OF REPORT Reason For Referral No Information Medications Medication SIG (Take, Route, Frequency, Duration) Notes Start Date End Date Status Azithromycin 250 MG t tablets on day 1, then 1 tablet daily Orally 12/04/2024 Active Pantoprazole Sodium 40 MG 1 tablet [...] IN 30-60 MINUTES Oral for 15 Active Zjxjq-7-prih Ethyl Esters 1 GM TAKE 2 CAPSULES BY MOUTH TWICE DAILY Oral for 90 Active Finasteride 5 MG TAKE 1 TABLET BY FLACO TH DAILY Oral for 90 Active Immunizations Vaccine Route Administration Date Status Comme nts Influenza Unknown 08/05/2024 Administered Influenza Unknown 10/24/2022 Refused Social History Tobacco Use: Social History Observation Description Date Details (start date - stop date) Former Smoker NA - NA Tobacco Use/Smoking Question Answer Notes Patient is [...] Never (0 point) Points 4 Interpretation Positive Section Notes: patient is in the process of quitting smoking started 4 days ago. patient is in the process of quitting smoking started 4 days ago. patient is in the process of quitting smoking started 4 days ago. Problems Problem Type SNOMED Code ICD Code Onset Dates Problem Status W/U Status Risk Notes Problem 801058280 Colon cancer screening (Z12.11) Active confirmed Problem 233202761 Personal history of colonic polyps (Z86.010) Active confirmed Problem 24988972 Encounter for other preprocedural examination (Z01.818) Active confirmed Problem Dysphagia (71064243) Dysphagia (R13.10) Active confirmed Problem 470566511 Family history o f colon cancer (Z80.0) Active confirmed Problem 48547705 Dysphagia, unspecified type (R13.10) Active confirmed Problem Gastroesophageal reflux disease (416751946) Esophageal reflux disease (K21.9) Active confirmed Problem 144580753 Gastroesophageal reflux disease, unspecified whether esophagitis present (K21.9) Active confirmed Vital Signs Temperature 97.8 degrees Fahrenheit 08/27/2024 Blood pressure diastolic 00 mm Hg 08/27/2024 Height 65 in 08/27/2024 Blood pressure systolic 000 mm Hg 08/27/2024 Weight 165 lb 2 oz lbs 08/27/2024 BMI 27.48 kg/m2 08/27/2024 Encounters Encounter Location Date Provider Diagnosis [facility] Outpatient [address] [place] [phone] 11/20/2024 Austin Balderas Jr Dysphagia R13.10 ; Esophageal reflux disease K21.9 and Abnormal UGI series R93.3 [facility] [address] [place] [phone] 08/27/2024 Austin Balderas Jr Gastroesophageal reflux disease, unspecified whether esophagitis present K21.9 [facility] [address] [place] [address] [address] 07/28/2024 Austin Balderas Jr [facility] [address] [place] [phone] 11/09/2024 Austin Balderas Jr [facility] [address] [place] [address] [address] 11/26/2024 Austin Balderas Jr [facility] [address] [phone] 12/03/2024 Austin Balderas Jr Assessments Encounter Date Diagnosis (ICD Code) Assessment Notes Treatment Notes Treatment Clinical Notes Section Notes 11/20/2024 Dysphagia (ICD-10 - R13.10) 11/20/2024 Esophageal reflux disease (ICD-10 - K21.9) 08/27/2024 Gastroesophageal reflux disease, unspecified whether esophagitis present (ICD-10 - K21.9) Gastroesophageal reflux disease material was printed We discussed gastroesophageal reflux disease today. We discussed diet, lifestyle modifications, and weight management regarding the treatment of reflux. He will increase pantoprazole to 40 mg daily and let us know how he's doing a month. We also discussed other factors could that could be contributing to this including allergies of postnasal drip. We recommended he take antihistamines as prescribed and use the steroid nasal spray. Repeat endoscopy could be considered pending clinical course. 11/20/2024 Abnormal UGI series (ICD-10 - R93.3) Plan Of Treatment Future Test Test Name Order Date COLONOSCOPY 02/07/2017 COLONOSCOPY 11/01/2022 UPPER GI ENDOSCOPY 11/12/2022 Insurance Providers Payer Name Payer Address Payer Phone Subscriber Number Group Number Insured Name Patient Relationship to Insured Coverage Start Date Coverage End Date [facility] [address] [place] [phone] [id number] WYATT ESTRADA Self - patient is the insured Medical (General) History Medical History History ICD Code Colonoscopy 01/24, normal, fi ve-year followup for history of polyps and family history colon cancer. Elevated cholesterol hypertension anxiety BPH Bilateral inguinal hernias, repair Upper endoscopy 01/24, gastritis, and no H. pylori Surgical History Surgery Date(Month/Year) Hand and finger surgery 5 x hernia surgery knee surgery
--- OUTSIDE RECORDS SUMMARY | 2025-03-08 12:44 | XMS_ITS ---
Author Organization [facility] Address [address] [place] [address] Care Team Providers Care School Cook Name Role Phone ANASTASIA TOLEDO Primary Care Provider Austin Catalan Jr Unavailable REASON FOR VISIT pathology Encounters Encounter Location Date Provider Diagnosis [facility] [address] [place] [address] 11/26/2024 Austin Balderas Jr Plan Of Treatment No Information Progress Notes * BOB ADAMSDOB: 2 (64 yo M)Acc No.[id number]:11/26/2024 Patient:?BOB ADAMS :1960???Age:64 Y???Sex:Male Address:[address], [place] [address] * true * Date:? Generated for Bridger perdomo/Lauren/eTransmitting on:?03/08/2025 12:44 PM EDT
--- OUTSIDE RECORDS SUMMARY | 2025-03-08 12:45 | XMS_ITS ---
Author Organization [facility] Address [address] [place] [address] Care Team Providers Care Exploration Manager Name Role Phone ANASTASIA TOLEDO Primary Care Provider Austin Catalan Jr Unavailable [phone] REASON FOR VISIT ABNORMAL BARIUM SWALLOW Problems Problem Type SNOMED Code ICD Code Onset Dates Problem Status W/U Status Risk Notes Problem Esophageal reflux disease (K21.9) Active confirmed Encounters Encounter Location Date Provider Diagnosis [facility] [place] Outpatient [address] [place] [phone] 11/20/2024 Austin Balderas Jr Dysphagia R13.10 ; [...] * BOB ADAMSDOB: [birth year] (64 yo M)Acc No.[id number]:11/20/2024 EGD/MAC Patient:?BOB ADAMS Provider:?Austin Balderas MD :1960???Age:64 Y???Sex:Male Alexey e:11/20/2024 Address:[address] [facility] [place] [facility] Pcp:ANASTASIA TOLEDO Subjective: * Chief Complaints: * ???1. ABNORMAL BARIUM SWALLO W. * Medical History:? Objective: * Vitals:? Assessment: * Assessment: 1.?Dysphagia - R13.10 (Prima ry)???2.?Esophageal reflux disease - K21.9???3.?Abnormal UGI series - R93.3??? Plan: * Treatment: * Procedure Codes:?86816 UPPER GI ENDOSCOPY, BIOPSY, 47131 ESOPH ENDOSCOPY, DILATION, Modifiers: 59 * * The named appointment provid er may or may not be the originator of this progress note, and it is not deemed complete until electronically signed by the appointment provider. Sign off status: Pending * Provider:?Austin Balderas MD Date:?0 11/20/2024 Generated for Bridger perdomo/Lauren/Mercedesitting on:?03/08/2025 12:44 PM EDT
--- OUTSIDE RECORDS SUMMARY | 2025-03-08 12:45 | XMS_ITS ---
Author Organization [facility] Address [address] [place], [place] [address] [place] [address] Care Team Providers Care Indexer Name Role Phone ANASTASIA TOLEDO Primary Care Provider Ming Balderas Jr, Austin Unavailable REASON FOR VISIT procedure/issues after Medications Medication SIG (Take, Route, Fr equency, Duration) Notes Start Date End Date Status Azithromycin 250 MG t tablets on day 1, then 1 tablet daily Orally 12/04/2024 Active Encounters Encounter Location Date Provider Diagnosis [facility] [address] [place] [address] 12/03/2024 Austin Balderas Jr Plan Of Treatment Medication Medication Name Sig Start Date Stop Date Notes Azithromycin 250 MG t tablets on day 1, then 1 tablet daily Orally 12/04/2024 Progress Notes * BOB ADAMSDOB: 2 (64 yo M)Acc No.[id number]:12/03/2024 Patient:?BOB ADAMS :1960???Age:64 Y???Sex:Male Address:[address], [place] [address] * Refills? Start Azithromycin Tablet, 250 MG, Orally, 6, t tablets on day 1, then 1 tablet daily, Refills=0 * true * Date:? Generated for Bridger perdomo/Lauren/eTransmitting on:?03/08/2025 12:44 PM EDT
== END 2025-03-08 11:02 | disposition home or self-care (01) ==
LOC: HO.BBR 11:01
PROVIDERS: PCP Nurse Practitioner Family; Visit Provider Internal Medicine Medical Oncology
DX: E83.110 Hereditary hemochromatosis (principal)
CPT/HCPCS: 36415; 82728; 83540; 85018; 99195

== ENCOUNTER 2025-04-22 09:37 | Outpatient (REF) | payer OTHER, SELFPAY ==
--- OUTSIDE RECORDS SUMMARY | 2025-04-22 10:31 | XMS_ITS | Patient Health Record ---
Author Organization [facility] Address [address] [place] [address] Care Team Providers Care Cotton Grower Name Role Phone ANASTASIA CHAN Primary Care Provider Austin Catalan Jr Unavailable Allergies Allergen (clinical drug ingredient) Drug/Non Drug Allergy documented on EMR Reaction Allergy Type Onset Date Status gabapentin Gabapentin Unknown Drug Allergy Activ e fenofibrate Fenofibrate Unknown Drug Allergy Act tez Penicillin Unknown Drug Allergy Active bees, sesame seed an d oil (uncoded) Unknown Allergy Active vancomycin Vancomycin Unknown Drug Allergy Activ e Substance with sulfonamide structure and antibacterial mechanism of action (substance) Sulfa Antibiotics Unknown Drug Allergy Active sesame oil Sesame Oil Unknown Drug Allergy Activ e Results Component Value Reference Range Notes Glucose, Whole Blood Reviewed date:11/20/2024 11:15:37 PM Interpretation: Performing Lab:[facility], [address] [place] [phone] Notes/Report: Glucose, Whole Blood 146 60-115 mg/dL METER # : [id number] Pathology Reviewed date:11/26/2024 02:42:15 PM Interpretation: Performing Lab:[facility], [address] [place] [phone] Notes/Report: ------- Name: Wyatt Estrada Age/Sex: 64/M : 1960 [facility]#: [id number] Unit#: [id number] Attend Dr: Austin Balderas MD Re11/20/24 Status : [facility] Location: [facility] Disch: ------- SPEC : [id number] RECD: 11/20/24 STATUS: ALF SAM NUM: [id number] HARRIS: 11/20/24-[address] [facility] DR: Austin Balderas MD ENTERED: 11/20/24 56 SP TYPE: Surgical OTHR DR: Anastasia Chan [facility] ORDERED: HE Stain/6, Gross Micro L4/2, [...] Estrada Sheldon Age/Sex: 64/M : 1960 Unit#: [id number] Attend Dr: Austin Balderas MD Re11/20/24 Status : [facility] Location: [facility] Disch: ------- SPEC : [id number] RECD: 11/20/24-1140 STATUS: ALF SAM NUM: [id number] HARRIS: 11/20/24-[address] [facility] [address]: Austin Balderas MD ENTERED: 11/20/24-11 56 SP TYPE: Surgical OTHR DR: Anastasia Chan [facility]- ORDERED: HE Stain/6, Gross Micro L4/2, IHC, [...] microscopic examination, 4 pieces in cassette [facility] Special studies orde red and performed: Immunostain for H. pylori on A1. Copies To: Austin Balderas MD [facility] [address] [place] [address] [address] [place], [place] [id number] Anastasia Chan [facility] Primary Care, [place] [address] [place], [place] [phone] ------- Signed (si gnature on file) Ebonie Clearwater 11/23/24 1316 ------- END OF REPORT Reason [...] IN 30-60 MINUTES Oral for 15 Active [id number]-[id number] Ethyl Esters 1 GM TAKE 2 CAPSULES [...] Problem Status W/U Status Risk Notes Problem 180245286 Colon cancer screening (Z12.11) Active confirmed Problem 929797551 Personal history of colonic polyps (Z86.010) Active confirmed Problem 23058822 Encounter for ot her preprocedural examination (Z01.818) Active confirmed Problem Dysphagia (65304967) Dysphagia (R13.10) Active confirmed Problem 312020278 Family history o f colon cancer (Z80.0) Active confirmed Problem 78538736 Dysphagia, unspecified type (R13.10) Active confirmed Problem Esophageal reflu x disease (K21.9) Active confirmed Problem 480914307 Gastroesophageal reflux disease, unspecified whether esophagitis present (K21.9) Active confirmed Vital Signs Temperature 97.8 degrees Fahrenheit 08/27/2024 Blood pressure diastolic 00 mm Hg 08/27/2024 Height 65 in 08/27/2024 Blood pressure systolic 000 mm Hg 08/27/2024 Weight 165 lb 2 oz lbs 08/27/2024 BMI 27.48 kg/m2 08/27/2024 Encounters Encounter Location Date Provider Diagnosis [facility] [place] [address] [place] [phone] 11/20/2024 Austin Balderas Jr Dysphagia R13.10 ; Esophageal reflux disease K21.9 and Abnormal UGI series R93.3 [facility] [address] [place] [address] [address] [place] [phone] 08/27/2024 Austin Balderas Jr Gastroesophageal reflux disease, unspecified whether esophagitis present K21.9 [facility] [address] [place] [address] [address] 07/28/2024 Austin Balderas Jr [facility] [address] [place] [phone] 11/09/2024 Austin Balderas Jr [facility] [address] [address] 11/26/2024 Austin Balderas Jr [facility] [address] [address] 12/03/2024 Austin Balderas Jr Assessments Encounter Date [...] Insured Coverage Start Date Coverage End Date [facility] [address] [place] [phone] [id number] WYATT ESTRADA Self - patient is the [...]
[2025-04-22 13:03] LABS: Appearance Urine Clear; Color Urine Yellow; Glucose Urine UA Negative (Negative); Leukocyte Esterase Urine Negative (Negative); Nitrite Urine Negative (Negative); Specific Gravity - Urine 1.025 (1.005-1.025); Urine Blood Negative (Negative); Urine Ketones Trace mg/dL (Negative); Urine Protein Negative (Neg-Trace)
[2025-04-22 13:07] LABS: Bacteria Urine None Seen (None Seen); Hyaline Casts Urine 0-2 /LPF (0-2); RBC Urine 0-2 /HPF (0-2); Squamous Epithelial Cell Urine 0-2 /HPF (0-2); WBC Urine 0-5 /HPF (0-5)
[2025-04-22 13:44] LABS: Prostate Specific Antigen 0.48 ng/mL (<0.05-4.0)
== END 2025-04-22 09:38 | disposition home or self-care (01) ==
LOC: HO.HMGCLDS 09:37
PROVIDERS: PCP Nurse Practitioner Family; Visit Provider Urology
DX: N41.9 Inflammatory disease of prostate, unspecified (principal); Z12.5 Encounter for screening for malignant neoplasm of prostate
CPT/HCPCS: 36415; 81001; 84153; 87086

== ENCOUNTER 2025-06-15 10:44 | Outpatient (AMB) | payer OTHER, SELFPAY ==
--- NOTE | 2025-06-15 10:49 | MHC.OFFVIS ---
Intake Visit Reasons: 1y/PSA Intake Note: Patient is Present for 1 yr Follow Up Urology Medication: Finasteride, Ointment Antibiotic Allergies:Vancomycin, Penicillins, Levofloxacin, Sulfa Antibitics Blood Thinners: None Ultrasound done :04/22/25 Labs done : PSA 0.48 PVR :93 mls Assistant Casino Shift Manager Required: No Accompanied by: Self / Same As Patient Allergies bee pollen (BEE STINGS) Allergy (Severe, Verified 06/15/25 10:50) Swelling Sulfa (Sulfonamide Antibiotics) (SULFA (SULFONAMIDE ANTIBIOTICS)) Allergy (Severe, Verified 06/15/25 10:50) ANAPHYLAXIS levofloxacin (From Levaquin) Allergy (Mild, Verified 06/15/25 10:50) tendonitis fenofibrate Allergy (Unknown, Verified 06/15/25 10:50) joint pain gabapentin (GABAPENTIN) Allergy (Unknown, Verified 06/15/25 10:50) RASH, HALLUCINATIONS, hallucinations Penicillins (PENICILLINS) Allergy (Unknown, Verified 06/15/25 10:50) ANAPHYLAXIS sesame oil (SESAME OIL) Allergy (Unknown, Verified 06/15/25 10:50) UNKNOWN (AND SESAME SEED) vancomycin (VANCOMYCIN) Allergy (Unknown, Verified 06/15/25 10:50) ITCHING AND REDNESS TO SKIN, itching HPI Comments Details: Sean is a pleasant male. He is a patient of Dr. North. He presents with the following urologic conditions - inguinal disruption left side - prostatitis - lower urinary tract symptoms Yearly follow-up PSA 0.5 Had episode of prostatitis and [place] MRI performed No suspicious lesions seen Continue stable prostate with finasteride 3 times a week and pumpkin seed Prostatitis Chronic prostatitis Ongoing since 2018 Last episode responded well to combination therapy Current therapy finasteride - 3 times a week PSA 04/24 0.9, 04/25 0.5 Prior response to levaquin - developed tendonitis Microgen 09/26 Broad positivity primarily gram + Inguinal disruption Prior pain on left inguinal canal Improved with self-care instructions [facility] Medical History (Updated 11/25/24 @ 09:38 by Ananth Chan, [facility]) Barretts esophagus Type 2 diabetes mellitus (~2022) Hemochromatosis Hypertension Dyslipidemia Tubular adenoma of colon (~2008) Lymph node enlargement Hiatal hernia GERD (gastroesophageal reflux disease) Anxiety IBS (irritable bowel syndrome) BPH (benign prostatic hyperplasia) Insomnia Arm paresthesia, right Arthritis of left leg Facet arthritis, degenerative, L5-S1 level, lumbosacral spine COVID-19 Personal history of nicotine dependence Surgical History History of endoscopy (~2022) History of excision of lesion (~2018) History of bilateral inguinal hernia repair (~2021) History of right knee surgery (~2018) History of left inguinal hernia repair (~2018) History of umbilical hernia repair (~2018) History of colonoscopy (~2022) History of cystoscopy (~2018) History of hand surgery Family History Brother History of colon cancer Mother History of breast cancer Father History of lung cancer Paternal Uncle History of lung cancer Maternal Grandmother History of heart attack Maternal Grandfather History of lung cancer Paternal Grandfather Cancer Other Mental health disorder Substance use disorder Social History Household Members: Spouse Housing: House Are you a primary home care physical therapist to a significant other at home: No Do you presently have visiting nurse or other home services: No Alcohol intake: current Alcohol intake frequency: a few times a month Comment: previously medicated Patient Tobacco Use Status: Former Tobacco user Tobacco use type: Cigarette e-Cigarette/Vaping Use: Never Used Second Hand Smoke Exposure: Yes Substance Use Type: Marijuana service: No Current occupational status: employed 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 Cognitive needs: No Hearing needs: No Vision needs: No Office Procedures Post Void Residual Post Residual Void Post Void Residual (PVR): 93 [id number]-[id number] Void Residual by ultrasound Results AMB Urinalysis, Automated UA Leukoctes 0 Colleen/uL Last Edit by DALI Ruiz on 06/15/25 14:19 UA Nitrite Negative Last Edit by DALI Ruiz on 06/15/25 14:19 UA Urobilinogen 3.5 mg/dL Last Edit by DALI Ruiz on 06/15/25 14:19 UA Protein 0 mg/dL Last Edit by DALI Ruiz on 06/15/25 14:19 UA pH 7.0 Last Edit by DALI Ruiz on 06/15/25 14:19 UA Blood 0 Hardy/uL Last Edit by DALI Ruiz on 06/15/25 14:19 UA Specific [place] 1.005 Last Edit by DALI Ruiz on 06/15/25 14:19 UA Ketone Negative Last Edit by DALI Ruiz on 06/15/25 14:19 UA Bilirubin 0 mg/dL Last Edit by DALI Ruiz on 06/15/25 14:19 UA Glucose 0 mg/dL Last Edit by DLAI Ruiz on 06/15/25 14:19 Assessment & Plan Assessment & Plan Orders: Orders AMB Post Void Residual by ultrasound Today N40.0 - Benign prostatic hyperplasia without lower urinary tract symptoms AMB Urinalysis Automated Today Z13.9 - Encounter for screening, unspecified Medications: Refilled finasteride 5 mg orally Saturday, Saturday, Saturday schedule; 90 tabs 1RF N41.9 - Inflammatory disease of prostate, unspecified Coding CPT Codes Post Residual Void - PVR CPT Code: 50032-[id number] Void Residual by ultrasound ([id number])
--- OUTSIDE RECORDS SUMMARY | 2025-06-15 11:51 | XMS_ITS | Patient Health Record ---
Author Organization [facility] Address [address] [place] [address] Care Team Providers Care Welfare Aide Name Role Phone ANASTASIA TOLEDO Primary Care Provider Ausitn Catalan Jr Unavailable Allergies Allergen (clinical drug [...] Blood Reviewed date:11/20/2024 11:15:37 PM Interpretation: Performing Lab:[facility], [address] [place] [phone] Notes/Report: Glucose, Whole Blood 146 60-115 mg/dL METER # : [id number] Pathology Reviewed date:11/26/2024 02:42:15 PM Interpretation: Performing Lab:[facility], [address] [place] [phone] Notes/Report: Reason For Referral No Information Medications Medication [...] IN 30-60 MINUTES Oral for 15 Active Jcllp-4-kuag Ethyl Esters 1 GM TAKE 2 CAPSULES [...] Problem Status W/U Status Risk Notes Problem 740268656 Colon cancer screening (Z12.11) Active confirmed Problem 291895648 Personal history of colonic polyps (Z86.010) Active confirmed Problem 52742112 Encounter for ot her preprocedural examination (Z01.818) Active confirmed Problem Dysphagia (83185189) Dysphagia (R13.10) Active confirmed Problem 551423094 Family history o f colon cancer (Z80.0) Active confirmed Problem 96773524 Dysphagia, unspecified type (R13.10) Active confirmed Problem Esophageal reflu x disease (K21.9) Active confirmed Problem 011681138 Gastroesophageal reflux disease, unspecified whether esophagitis present (K21.9) Active confirmed Vital Signs Temperature 97.8 degrees Fahrenheit 08/27/2024 Blood pressure diastolic 00 mm Hg 08/27/2024 Height 65 in 08/27/2024 Blood pressure systolic 000 mm Hg 08/27/2024 Weight 165 lb 2 oz lbs 08/27/2024 BMI 27.48 kg/m2 08/27/2024 Encounters Encounter Location Date Provider Diagnosis [facility] [place] [address] [place] [phone] 11/20/2024 Austin Balderas Jr Dysphagia R13.10 ; Esophageal reflux disease K21.9 and Abnormal UGI series R93.3 [facility] [address] [place] [phone] 08/27/2024 Austin Balderas Jr Gastroesophageal reflux disease, unspecified whether esophagitis present K21.9 [facility] [address] [place] [phone] 07/28/2024 Austin Balderas Jr [facility] [address] [place] [phone] 11/09/2024 Austin Balderas Jr [facility] [address] [place] [phone] 11/26/2024 Austin Balderas Jr [facility] [address] [place] [phone] 12/03/2024 Austin Balderas Jr Assessments Encounter Date [...] Insured Coverage Start Date Coverage End Date [facility] [address] [address] [place] [phone] [id number] BOB ADAMS Self - patient is the insured Medical [...]
== END 2025-06-15 11:38 | disposition home or self-care (01) ==
LOC: HO.HUSH 10:45
PROVIDERS: PCP Nurse Practitioner Family; Visit Provider Urology
DX: Z13.9 Encounter for screening, unspecified (principal)

== ENCOUNTER → 2025-06-15 10:44 | Outpatient (BNVA) | payer OTHER, SELFPAY | PROVIDERS: PCP Nurse Practitioner Family; Visit Provider Urology | DX: N40.0 Benign prostatic hyperplasia without lower urinary tract symptoms (principal) | CPT/HCPCS: 51798; 81003 ==

== ENCOUNTER 2025-06-22 12:53 | Outpatient (AMB) | payer OTHER, SELFPAY ==
--- NOTE | 2025-06-22 13:00 | A.OFFVIS_ITS ---
Intake Visit Reasons: hernia site pain Intake Note: Patient is seen in office for pain at hernia site, post bilateral inguinal hernia repair 10/10/22. Pt c/o: on and off pain on Rt lower abdomen at inguinal site. Pain gets worse after clearing throat. X Ray Consultant Required: No Accompanied by: Self / Same As Patient Allergies bee pollen (BEE STINGS) Allergy (Severe, Verified 06/22/25 13:07) Swelling Sulfa (Sulfonamide Antibiotics) (SULFA (SULFONAMIDE ANTIBIOTICS)) Allergy (Severe, Verified 06/22/25 13:07) ANAPHYLAXIS levofloxacin (From Levaquin) Allergy (Mild, Verified 06/22/25 13:07) tendonitis fenofibrate Allergy (Unknown, Verified 06/22/25 13:07) joint pain gabapentin (GABAPENTIN) Allergy (Unknown, Verified 06/22/25 13:07) RASH, HALLUCINATIONS, hallucinations Penicillins (PENICILLINS) Allergy (Unknown, Verified 06/22/25 13:07) ANAPHYLAXIS sesame oil (SESAME OIL) Allergy (Unknown, Verified 06/22/25 13:07) UNKNOWN (AND SESAME SEED) vancomycin (VANCOMYCIN) Allergy (Unknown, Verified 06/22/25 13:07) ITCHING AND REDNESS TO SKIN, itching HPI HPI hernia site pain: Details: presenting with bilateral groin pain worse on the right. He states that he has been dealing with having to clear his throat very often, is being worked up for GERD, allergies but continues to having frequent coughing. This causes him pain in both groins. 3 weeks ago was very painful, now currently more like discomfort associated with coughing. he has not been doing any heavy lifting. has not felt a true bulge in the groin, but has had some swelling. He received an ultrasound of the scrotum from a third alliance party that shows a small fat containing left hernia, varicoele and small bilateral hydroceles. He brought in these reports and they were scanned in the chart. He denies chagnes to bowel habits or appetite, has occasional constipation, going 2 days without bowel movement. [facility] Medical History Barretts esophagus Type 2 diabetes mellitus (~2022) Hemochromatosis Hypertension Dyslipidemia Tubular adenoma of colon (~2008) Lymph node enlargement Hiatal hernia GERD (gastroesophageal reflux disease) Anxiety IBS (irritable bowel syndrome) BPH (benign prostatic hyperplasia) Insomnia Arm paresthesia, right Arthritis of left leg Facet arthritis, degenerative, L5-S1 level, lumbosacral spine COVID-19 Personal history of nicotine dependence Surgical History History of endoscopy (~2022) History of excision of lesion (~2018) History of bilateral inguinal hernia repair (~2021) History of right knee surgery (~2018) History of left inguinal hernia repair (~2018) History of umbilical hernia repair (~2018) History of colonoscopy (~2022) History of cystoscopy (~2018) History of hand surgery Family History Brother History of colon cancer Mother History of breast cancer Father History of lung cancer Paternal Uncle History of lung cancer Maternal Grandmother History of heart attack Maternal Grandfather History of lung cancer Paternal Grandfather Cancer Other Mental health disorder Substance use disorder Social History Household Members: Spouse Housing: House Are you a primary daycare worker to a significant other at home: No Do you presently have visiting nurse or other home services: No Alcohol intake: current Alcohol intake frequency: a few times a month Comment: previously medicated Patient Tobacco Use Status: Former Tobacco user Tobacco use type: Cigarette e-Cigarette/Vaping Use: Never Used Second Hand Smoke Exposure: Yes Substance Use Type: Marijuana service: No Current occupational status: employed 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 no recurrance with valsalva, mildly tender on the left scrotum is not edematous Neuro General: patient oriented x3 Assessment & Plan Assessment & Plan (1) Chronic pain after repair of hernia: Comment: bilateral inguinal Code(s): G89.28 - Other chronic postprocedural pain Category: Medical Plan 64 year old male s/p bilateral inguinal hernia repairs, with revision most recently in 2021 returnign to the office with pain in both groins secondary to frequent coughing and clearing of the throat. He has been having this pain for the last 3 weeks, when it began it was very sharp in nature, and was causing him a lot of pain, with some associated swelling in the scrotum. This pain only occurs with coughing. He did have a third alliance party ultrasound that showed a small fat containing hernia in the left scrotum along with left varicocele and bialteral small hydroceles. On exam today i was unable to appreciate the hernias on exam. I had the patient perform valsalva and was again able to palpate hernias on either side. I will have the patient return to see Dr. Olmedo for an additional evaluation. We will obtain the records of this ultrasound and the actual images. Patient will follow up in the second week of july Coding Level of Care Code Est Pt Level 3 (33995) Diagnoses Chronic pain after repair of hernia G89.28
--- OUTSIDE RECORDS SUMMARY | 2025-06-22 14:03 | XMS_ITS | Patient Health Record ---
Author Organization [facility] Address [address] [place] [address] Care Team Providers Care Seam Sewer Name Role Phone ANASTASIA TOLEDO Primary Care Provider Austin Catalan Jr Unavailable [phone] Allergies Allergen (clinical drug ingredient) Drug/Non Drug [...] Blood Reviewed date:11/20/2024 11:15:37 PM Interpretation: Performing Lab:[facility], [address] [place] [phone] Notes/Report: Glucose, Whole Blood 146 60-115 mg/dL METER # : [id number] Pathology Reviewed date:11/26/2024 02:42:15 PM Interpretation: Performing Lab:[facility], [address] [place] [phone] Notes/Report: Reason For Referral No Information Medications [...] IN 30-60 MINUTES Oral for 15 Active [id number] Ethyl Esters 1 GM TAKE 2 CAPSULES [...] Problem Status W/U Status Risk Notes Problem 124302500 Colon cancer screening (Z12.11) Active confirmed Problem 623023875 Personal history of colonic polyps (Z86.010) Active confirmed Problem 20960150 Encounter for other preprocedural examination (Z01.818) Active confirmed Problem Dysphagia (67344208) Dysphagia (R13.10) Active confirmed Problem 576468595 Family history o f colon cancer (Z80.0) Active confirmed Problem 43646059 Dysphagia, unspecified type (R13.10) Active confirmed Problem Gastroesophageal reflux disease (504711142) Esophageal reflux disease (K21.9) Active confirmed Problem 331192476 Gastroesophageal reflux disease, unspecified whether esophagitis present (K21.9) Active confirmed Vital Signs Temperature 97.8 degrees Fahrenheit 08/27/2024 Blood pressure diastolic 00 mm Hg 08/27/2024 Height 65 in 08/27/2024 Blood pressure systolic 000 mm Hg 08/27/2024 Weight 165 lb 2 oz lbs 08/27/2024 BMI 27.48 kg/m2 08/27/2024 Encounters Encounter Location Date Provider Diagnosis [facility] Outpatient [address] [place] [id number] 11/20/2024 Austin Balderas Jr Dysphagia R13.10 ; Esophageal reflux disease K21.9 and Abnormal UGI series R93.3 [facility] [address] [place] [phone] 08/27/2024 Austin Balderas Jr Gastroesophageal reflux disease, unspecified whether esophagitis present K21.9 [facility] [address] [place] [phone] 07/28/2024 Austin Balderas Jr [facility] [address] [place] [phone] 11/09/2024 Austin Balderas Jr [facility] [address] [place] [phone] 11/26/2024 Austin Balderas Jr [facility] [address] [address] 12/03/2024 Austin Balderas Jr Assessments Encounter Date [...] Start Date Coverage End Date [facility] [address] [place] [address] [id number] BOB ADAMS Self - patient is the [...]
== END 2025-06-22 13:40 | disposition home or self-care (01) ==
LOC: HO.HGS 12:53
PROVIDERS: PCP Nurse Practitioner Family; Visit Provider Surgery
DX: G89.28 Other chronic postprocedural pain (principal)
CPT/HCPCS: 99213

== ENCOUNTER 2025-07-16 10:23 | Outpatient (AMB) | payer OTHER, SELFPAY ==
--- OUTSIDE RECORDS SUMMARY | 2024-11-20 09:10 | XMS_ITS ---
Author Organization [facility] Address [address] [place] [address] Care Team Providers Care Cpr Ambulance Driver Name Role Phone ANASTASIA TOLEDO Primary Care Provider Austin Catalan Jr Unavailable REASON FOR VISIT ABNORMAL BARIUM SWALLOW Problems Problem Type SNOMED Code ICD Code Onset Dates Problem Status W/U Status Risk Notes Problem Gastroesophageal reflux disease (309958852) Esophageal reflux disease (K21.9) Active confirmed Encounters Encounter Location Date Provider Diagnosis [facility] Outpatient [address] [place] [phone] 11/20/2024 Austin Balderas Jr Dysphagia R13.10 ; [...] * BOB ADAMSDOB: 2 (64 yo M)Acc No.[id number]:11/20/2024 EGD/MAC Patient: BOB GA Provider: Yanique Balderas MD :1960 A ge:64 Y S ex:Male Date:11/20/2024 Address:[address], [place] [facility] Pcp:ANASTASIA TOLEDO Subjective: * Chief Complaints: * 1 . ABNORMAL BARIUM SWALLOW. * Medical History: Objective: * Vitals: Assessment: * Assessment: 1. D ysphagia - R13.10 (Primary) 2 . E sophageal reflux disease - K21.9? 3. A bnormal UGI series - R93.3 Plan: * Treatment: * Procedure Codes: 4 3239 UPPER GI ENDOSCOPY, BIOPSY, [address]20[address] ESOPH ENDOSCOPY, DILATION, Modifiers: 59 * * The named appointment provid er may or may not be the originator of this progress note, and it is not deemed complete until electronically signed by the appointment provider. Sign off status: Pending * Provider: Yanique Balderas MD Date: 0 11/20/2024 Generated for Bridger perdomo/Lauren/Mercedesitting on: 0 07/16/2025 11:51 AM EDT
--- NOTE | 2025-07-16 11:01 | A.OFFVIS_ITS ---
Vital Signs 07/16/25 11:05 Height 5 ft 5 in Weight 168 lb BMI 28.0 BP 129/85 Blood Pressure Location Lt brachial Position Sitting Pulse 77 Intake Visit Reasons: rt inguinal pain r/o recurrent inguinal hernia Intake Note: Patient is seen in office for possible recurrent inguinal hernia. Pt c/o: ever since post surgery he feels the need to clear his throat and when doing so inf cuases pain in the groin Store Host Required: No Accompanied by: Self / Same As Patient Allergies bee pollen (BEE STINGS) Allergy (Severe, Verified 07/16/25 11:04) Swelling Sulfa (Sulfonamide Antibiotics) (SULFA (SULFONAMIDE ANTIBIOTICS)) Allergy (Severe, Verified 07/16/25 11:04) ANAPHYLAXIS levofloxacin (From Levaquin) Allergy (Mild, Verified 07/16/25 11:04) tendonitis fenofibrate Allergy (Unknown, Verified 07/16/25 11:04) joint pain gabapentin (GABAPENTIN) Allergy (Unknown, Verified 07/16/25 11:04) RASH, HALLUCINATIONS, hallucinations Penicillins (PENICILLINS) Allergy (Unknown, Verified 07/16/25 11:04) ANAPHYLAXIS sesame oil (SESAME OIL) Allergy (Unknown, Verified 07/16/25 11:04) UNKNOWN (AND SESAME SEED) vancomycin (VANCOMYCIN) Allergy (Unknown, Verified 07/16/25 11:04) ITCHING AND REDNESS TO SKIN, itching HPI Comments Details: 64-year-old male returning following repair of bilateral inguinal hernias. S diane the surgery, he reports persistent coughing with the need to clear his throat due to the anesthesia. This results in significant pain in the right groin. He denies any palpable lump feels the persisting clearing of his throat is causing him to rip the muscles. He denies any significant symptoms in the left side. He is now living in [place] we will came up today for this evaluation. He was evaluated by Dr. Balderas for GERD. He performed an upper endoscopy is balloon dilatation but continues to have the same symptoms. [facility] Medical History Barretts esophagus Type 2 diabetes mellitus (~2022) Hemochromatosis Hypertension Dyslipidemia Tubular adenoma of colon (~2008) Lymph node enlargement Hiatal hernia GERD (gastroesophageal reflux disease) Anxiety IBS (irritable bowel syndrome) BPH (benign prostatic hyperplasia) Insomnia Arm paresthesia, right Arthritis of left leg Facet arthritis, degenerative, L5-S1 level, lumbosacral spine COVID-19 Personal history of nicotine dependence Surgical History History of endoscopy (~2022) History of excision of lesion (~2018) History of bilateral inguinal hernia repair (~2021) History of right knee surgery (~2018) History of left inguinal hernia repair (~2018) History of umbilical hernia repair (~2018) History of colonoscopy (~2022) History of cystoscopy (~2018) History of hand surgery Family History Brother History of colon cancer Mother History of breast cancer Father History of lung cancer Paternal Uncle History of lung cancer Maternal Grandmother History of heart attack Maternal Grandfather History of lung cancer Paternal Grandfather Cancer Other Mental health disorder Substance use disorder Social History Household Members: Spouse Housing: House Are you a primary care professional to a significant other at home: No Do you presently have visiting nurse or other home services: No Alcohol intake: current Alcohol intake frequency: a few times a month Comment: previously medicated Patient Tobacco Use Status: Former Tobacco user Tobacco use type: Cigarette e-Cigarette/Vaping Use: Never Used Second Hand Smoke Exposure: Yes Substance Use Type: Marijuana service: No Current occupational status: employed 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 No palpable hernia noted with Valsalva maneuvers. Tenderness noted in the lateral inguinal canal with deep palpation. Neuro General: patient oriented x3 Extrem Other: No edema Assessment & Plan Assessment & Plan (1) Chronic pain after repair of hernia: Comment: bilateral inguinal Code(s): G89.28 - Other chronic postprocedural pain Category: Medical (2) Chronic cough: Code(s): R05.3 - Chronic cough Category: Medical Plan 64-year-old male patient with a history of pain in the bilateral groins reporting persistent cough and need to clear his throat following intubation surgery several years ago. He denies any palpable lump in the groin but does have significant pain when coughing. Examination confirms some tenderness in the right groin but no palpable hernia on either side. I recommended ENT evaluation. He may have changes to his vocal cord following intubation resulting in the persistent cough. The patient understands and agrees with this plan. Orders: Referrals Ear/Nose/Throat Referral R05.3 - Chronic cough Coding Level of Care Code Est Pt Level 3 (23216) Diagnoses Chronic pain after repair of hernia G89.28 Chronic cough R05.3
[2025-07-16 11:05] VITALS: BP 129/85; PULSE 77; BMI 28.0
--- OUTSIDE RECORDS SUMMARY | 2025-07-16 11:51 | XMS_ITS | Patient Health Record ---
Author Organization [facility] Address [address] [place] [address] Care Team Providers Care Organ Recovery Coordinator Name Role Phone ANASTASIA TOLEDO Primary Care Provider Austin Catalan Jr Unavailable [phone] Allergies Allergen (clinical drug ingredient) Drug/Non Drug [...] Blood Reviewed date:11/20/2024 11:15:37 PM Interpretation: Performing Lab:[facility], [address] [place] [phone] Notes/Report: Glucose, Whole Blood 146 60-115 mg/dL METER # : [id number] Pathology Reviewed date:11/26/2024 02:42:15 PM Interpretation: Performing Lab:[facility], [address] [place] [phone] Notes/Report: Reason For Referral No Information Medications [...] IN 30-60 MINUTES Oral for 15 Active [id number]-9-[id number] Ethyl Esters 1 GM TAKE 2 CAPSULES [...] Problem Status W/U Status Risk Notes Problem 810105866 Colon cancer screening (Z12.11) Active confirmed Problem 388997378 Personal history of colonic polyps (Z86.010) Active confirmed Problem 89143190 Encounter for other preprocedural examination (Z01.818) Active confirmed Problem Dysphagia (27603284) Dysphagia (R13.10) Active confirmed Problem 225546128 Family history o f colon cancer (Z80.0) Active confirmed Problem 09098383 Dysphagia, unspecified type (R13.10) Active confirmed Problem Gastroesophageal reflux disease (778246602) Esophageal reflux disease (K21.9) Active confirmed Problem 098092794 Gastroesophageal reflux disease, unspecified whether esophagitis present (K21.9) Active confirmed Vital Signs Temperature 97.8 degrees Fahrenheit 08/27/2024 Blood pressure diastolic 00 mm Hg 08/27/2024 Height 65 in 08/27/2024 Blood pressure systolic 000 mm Hg 08/27/2024 Weight 165 lb 2 oz lbs 08/27/2024 BMI 27.48 kg/m2 08/27/2024 Encounters Encounter Location Date Provider Diagnosis [facility] [address] [place] [id number] 11/20/2024 Austin Balderas Jr Dysphagia R13.10 ; Esophageal reflux disease K21.9 and Abnormal UGI series R93.3 [facility] [address] [place] [phone] 08/27/2024 Austin Balderas Jr Gastroesophageal reflux disease, unspecified whether esophagitis present K21.9 [facility] [address] [place] [phone] 07/28/2024 Austin Balderas Jr [facility] [address] [place] [phone] 11/09/2024 Austin Balderas Jr [facility] [address] [place] [phone] 11/26/2024 Austin Balderas Jr [facility] [address] [phone] 12/03/2024 Austin Balderas Jr Assessments Encounter Date [...] Insured Coverage Start Date Coverage End Date [facility] [address] [place] [address] [id number] BOB ADAMS Self - patient is the [...]
== END 2025-07-16 11:10 | disposition home or self-care (01) ==
LOC: HO.HGS 10:23
PROVIDERS: PCP Nurse Practitioner Family; Visit Provider Surgery
DX: G89.28 Other chronic postprocedural pain (principal); R05.3 Chronic cough
CPT/HCPCS: 99213

== ENCOUNTER 2025-07-19 07:18 | Emergency (ER) | payer OTHER, SELFPAY ==
--- OUTSIDE RECORDS SUMMARY | 2024-11-20 09:10 | XMS_ITS ---
Author Organization [facility] Address [address] [place] [address] Care Team Providers Care Grader Tender Name Role Phone ANASTASIA TOLEDO Primary Care Provider Austin Catalan Jr Unavailable REASON FOR VISIT ABNORMAL BARIUM SWALLOW Problems Problem Type SNOMED Code ICD Code Onset Dates Problem Status W/U Status Risk Notes Problem Gastroesophageal reflux disease (811918206) Esophageal reflux disease (K21.9) Active confirmed Encounters Encounter Location Date Provider Diagnosis [facility] Outpatient [address] [place] [phone] 11/20/2024 Austin Balderas Jr Dysphagia R13.10 ; Esophageal reflux disease K21.9 and Abnormal UGI series R93.3 Assessments Encounter Date Diagnosis (ICD Code) Assessment Notes Treatment Notes Treatment Clinical Notes Section Notes 11/20/2024 Dysphagia (ICD-10 - R13.10) 11/20/2024 Esophageal reflux disease (ICD-10 - K21.9) 11/20/2024 Abnormal UGI series (ICD-10 - R93.3) Plan Of Treatment No Information Progress Notes * BOB ADAMSDOB: 2 (64 yo M)Acc No.[id number]:11/20/2024 EGD/MAC Patient: BOB GA Provider: Yanique Balderas MD :1960 A ge:64 Y S ex:Male Date:11/20/2024 Address:[address], [place] [facility] Pcp:ANASTASIA TOLEDO Subjective: * Chief Complaints: * 1 . ABNORMAL BARIUM SWALLOW. * Medical History: Objective: * Vitals: Assessment: * Assessment: 1. D ysphagia - R13.10 (Primary) 2 . E sophageal reflux disease - K21.9? 3. A bnormal UGI series - R93.3 Plan: * Treatment: * Procedure Codes: 4 3239 UPPER GI ENDOSCOPY, BIOPSY, 60016 ESOPH ENDOSCOPY, DILATION, Modifiers: 59 * * The named appointment provid er may or may not be the originator of this progress note, and it is not deemed complete until electronically signed by the appointment provider. Sign off status: Pending * Provider: Yanique Balderas MD Date: 0 11/20/2024 Generated for Bridger perdomo/Lauren/Mercedesitting on: 0 07/19/2025 07:50 AM EDT
--- NOTE | 2025-07-19 | ECG_ITS ---
Test Reason : CP Blood Pressure : */* mmHG Vent. Rate : 58 BPM Atrial Rate : 58 BPM P-R Int : 186 ms QRS Dur : 96 ms QT Int : 416 ms P-R-T Axes : 19 12 9 degrees QTcB Int : 408 ms Sinus bradycardia Otherwise normal ECG When compared with ECG of 29-Oct-2024 17:13, No significant change was found Referred By: Generic ED Physician Electronically Signed By: BIBI WALKER
--- NOTE | ~2025-07-19 | XR_ITS ---
EXAMINATION: XR CHEST 2 VIEWS HISTORY: pain to left rib cage COMPARISON: Comparison is made with the prior examination dated 05/06/2023. FINDINGS: PA and lateral views of the chest are submitted. There is mild scarring at the lung bases. There is no pleural effusion, pneumothorax, or pulmonary vascular congestion. The heart is normal in size. The bones are intact. XR/XR chest 2V IMPRESSION: No acute cardiopulmonary abnormality. Electronically signed by: Gigi Mendoza MD 07/19/2025 08:28 AM EDT
[2025-07-19 07:25] VITALS: BP 124/81; PULSE 57; RESP 16; TEMP 36.2; O2SAT 96; BMI 28.8
--- NOTE | 2025-07-19 07:27 | MHC.EDTECH ---
Patient brought into triage area,EKG taken per order and signed by provider
--- NOTE | 2025-07-19 07:44 | ED_ITS ---
HPI - General Adult General Chief complaint: General Medical Stated complaint: Sore chest Time Seen by Provider: 07/19/25 07:44 Source: patient Mode of arrival: ambulatory Limitations: no limitations History of Present Illness ED Provider: HPI narrative: 64-year-old male presenting with some discomfort in the left axillary area, he has had the same episode he is not able to recall 5-10 years ago, had a mammogram, this started when he was not [place] and he went to urgent care and just finished a course of steroids, he states that as he was not steroids the symptoms were better but he stopped steroids in the symptoms are coming back, he has had no fevers or chills no sweats at night, he has had no weight loss and has not had other area of lymphadenopathy. Chronic cough after intubation for inguinal hernia repairs he has never followed up with the ENT yet. Related Data Home Medications ?Medication ?Instructions ?Recorded ?Confirmed pumpkin seed xt and soybean germ See Rx Instructions . Route .COMPLEX 12/01/21 06/30/25 300 mg-Cissus quad xt 150 mg capsule cetirizine 10 mg tablet 10 mg PO DAILY 09/16/2406/05 fluticasone propionate 50 1 spray intranasal BID 09/1606/30/25 mcg/actuation nasal spray,suspension amitriptyline 25 mg tablet 25 mg PO DAILY 06/15/25 Previous Rx's ?Medication ?Instructions ?Recorded lidocaine 4 % topical patch 1 patch topical DAILY PRN pain #10 11/08/22 ea alcohol swabs (Alcohol Pads) See Rx Instructions topic al .TID 06/26/23 #200 ea FreeStyle Lite Meter #1 ea 06/27/23 (blood-glucose meter) FreeStyle Lancets 28 gauge #300 ea 07/25/23 (lancets) FreeStyle Lite Strips (blood sugar #300 ea 07/25/23 diagnostic) blood-glucose sensor (FreeStyle #6 ea 12/10/23 Brinda 3 Sensor device) epinephrine 0.3 mg/0.3 mL 0.3 ml IM DIRECTED allerg ies #2 06/02/24 injection, auto-injector ea pantoprazole 20 mg tablet,delayed 20 mg PO DAILY #90 t abs 07/19/24 release betamethasone dipropionate 0.05 % 1 appl topical BID # 15 grams 08/26/24 topical ointment omega-3 acid ethyl esters 1 gram 2 cap PO BID 90 days #360 caps 02/04/25 capsule buspirone 10 mg tablet 10 mg PO DAILY Anxiety 90 da ys #90 03/11/25 tabs losartan 25 mg tablet 25 mg PO DAILY 90 days #90 t abs 03/13/25 atorvastatin 20 mg tablet 20 mg PO DAILY 90 days #90 t abs 03/17/25 amlodipine 10 mg tablet 10 mg PO DAILY 90 days #90 t abs 04/27/25 finasteride 5 mg tablet 5 mg PO .COMPLEX #90 tabs Allergies Allergy/AdvReac Type Severity Reaction Status Date / Time bee pollen (BEE STINGS) Allergy Severe Swelling Verified 07/19/25 07:29 Sulfa (Sulfonamide Allergy Severe ANAPHYLAXIS Verified 07/19/25 07:29 Antibiotics) (SULFA (SULFONAMIDE ANTIBIOTICS)) levofloxacin (From Levaquin) Allergy Mild tendonitis Verified 07/19/25 07:29 fenofibrate Allergy Unknown joint pain Verified 07/19/25 07:29 gabapentin (GABAPENTIN) Allergy Unknown RASH, Verified 07/19/25 07:29 HALLUCINATIONS, hallucinations Penicillins (PENICILLINS) Allergy Unknown ANAPHYLAXIS Verified 07/19/25 07:29 sesame oil (SESAME OIL) Allergy Unknown UNKNOWN Verified 07/19/25 07:29 (AND SESAME SEED) vancomycin (VANCOMYCIN) Allergy Unknown ITCHING Verified 07/19/25 07:29 AND REDNESS TO SKIN, itching Review of Systems 2 Constitutional: Constitutional: Reports as per [facility] Past Medical History Medical History Barretts esophagus Type 2 diabetes mellitus (~2022) Hemochromatosis Hypertension Dyslipidemia Tubular adenoma of colon (~2008) Lymph node enlargement Hiatal hernia GERD (gastroesophageal reflux disease) Anxiety IBS (irritable bowel syndrome) BPH (benign prostatic hyperplasia) Insomnia Arm paresthesia, right Arthritis of left leg Facet arthritis, degenerative, L5-S1 level, lumbosacral spine COVID-19 Personal history of nicotine dependence Surgical History History of endoscopy (~2022) History of excision of lesion (~2018) History of bilateral inguinal hernia repair (~2021) History of right knee surgery (~2018) History of left inguinal hernia repair (~2018) History of umbilical hernia repair (~2018) History of colonoscopy (~2022) History of cystoscopy (~2018) History of hand surgery Family History Family History Brother History of colon cancer Mother History of breast cancer Father History of lung cancer Paternal Uncle History of lung cancer Maternal Grandmother History of heart attack Maternal Grandfather History of lung cancer Paternal Grandfather Cancer Other Mental health disorder Substance use disorder Social History Social History Household Members: Spouse Housing: House Are you a primary respiratory care assistant to a significant other at home: No Do you presently have visiting nurse or other home services: No Alcohol intake: current Alcohol intake frequency: a few times a month Comment: previously medicated Patient Tobacco Use Status: Former Tobacco user Tobacco use type: Cigarette e-Cigarette/Vaping Use: Never Used Second Hand Smoke Exposure: Yes Substance Use Type: Marijuana Advance Directives: No Advance Directives Information Provided: Yes service: No Current occupational status: employed 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 Cognitive needs: No Hearing needs: No Vision needs: No Physical Exam ED Vital Signs: Vital Signs - 24 hr 07/19/25 07:25 07/19/25 09:33 Temperature 97.2 F Pulse Rate 57 53 Respiratory Rate 16 16 Blood Pressure 124/81 135/91 H Pulse Oximetry 96 97 Oxygen Delivery Method Room Air Room Air BMI result Body Mass Index 28.8 Const Other: * Gen: ?Overall well-appearing patient * HEENT: No lymphadenopathy in the neck, uvula midline, no supraclavicular lymphadenopathy * CV: RRR, no obvious murmurs appreciated * Resp: ?No wheezing rales rhonchi no stridor moving air well * Abd: ?Bowel sounds are present, no tenderness no rebound no rigidity * MSK: FROM, strength 5/5 all extremities, some tenderness in the axillary area on the left but no palpable lymph nodes * Skin: Warm, dry, intact, no lower extremity edema * Neuro: ?Alert and oriented x3, moving upper and lower extremities symmetrically, no obvious facial asymmetry noted Medical Decision Making Medical Decision Making [facility] Narrative: 8:17 AM 07/19/2025 (Dr. Jimi Magallon): Presenting with what sounds like recurrent lymphadenopathy, has some other issues that are chronic has had prior CT lung, soft tissue neck CT, barium swallow x-rays, ultrasound of the neck this is within past 1-2 years I reviewed those studies, does not seem like he has had night sweats, weight loss, we will obtain blood work to evaluate for any evidence of neutropenia or leukocytosis, chest x-ray to evaluate for any inflammatory etiology, obvious masses otherwise he can follow up with the PCP, this is not relating to ACS, ECG unremarkable Differential Diagnosis Differential Diagnoses: The differential diagnosis associated with the presentation includes (Lymphoma, leukemia, pads tumor, reactive lymphadenopathy, ACS) Admission/Observation Consideration of admission/observation: Escalation of care including admission/observation considered Lab Data [facility] Lab Attestation statement: I reviewed the patient's lab results. 07/19/25 09:19 07/19/25 09:19 Labs: Lab Results 07/19/25 07/19/25 Range/Units 08:15 09:19 WBC 5.4 (4.8-10.8) X10*3/uL RBC 5.08 (4.60-5.80) X10*6/uL Hgb 12.9 L (14.0-18.0) g/dl Hct 40.9 L (42.0-52.0) % MCV 80.5 (80.0-98.0) fL MCH 25.4 L (27.0-33.0) pg MCHC 31.5 (31.0-36.0) g/dl RDW 17.6 H (11.0-16.0) % Plt Count 308 (160-400) X10*3/uL MPV 8.3 L (9.4-12.4) fL Immature Gran % (Auto) 0.4 (0.0-0.4) % Neut % (Auto) 40.9 L (45-73) % Lymph % (Auto) 42.7 H (20-40) % [place] % (Auto) 13.1 H (2-11) % Eos % (Auto) 2.0 (0-4) % Baso % (Auto) 0.9 (0-2) % Lymph # (Auto) 2.3 (1.2-4.9) X10*3/uL [place] # (Auto) 0.7 (0.1-1.2) X10*3/uL Eos # (Auto) 0.1 (0.0-0.4) X10*3/uL Baso # (Auto) 0.1 (0.0-0.2) X10*3/uL Abs Immat Gran (auto) 0.02 (0.00-0.03) X10*3/uL Absolute Neuts (auto) 2.2 (2.0-8.3) x10*3/uL Absolute Nucleated RBC 0.000 (0.0-0.012) X10*3/uL Nucleated RBC % (auto) 0.0 (0.0-0.2) /100WBC Sodium 143 (135-145) mmol/L Potassium 4.1 (3.3-5.1) mmol/L Chloride 112 H (96-108) mmol/L Carbon Dioxide 24 (22-29) mmol/L Anion Gap 11 L (12-20) BUN 22 H (9-16) mg/dL Creatinine 0.79 (0.5-1.4) mg/dL Estim Creat Clear Calc 90.5 Estimated GFR > 60 Random Glucose 117 H (60-115) mg/dL Calcium 8.5 D (8.4-10.2) mg/dL C-Reactive Protein < 0.10 (< or = 0.50) mg/dL Independent Interpretation I performed an independent interpretation of an: EKG (58 beats per minute, otherwise normal ECG without dysrhythmia, AV bety blocks or ST-T changes to suspect underlying ACS, my independent interpretation) and Plain X-Ray (My independent chest xray interpretation: Lungs: Lungs are clear bilaterally without evidence of focal consolidation, pleural effusion, or pneumothorax. Cardiac silhouette is unremarkable, no obvious mediastinal widening, no obvious bony abnormalities such as fractures. Impression: Normal chest X-r) Radiology Impression Discussion of test interpretation with radiology: I have reviewed the radiologist's reading. ( XR/XR chest 2V IMPRESSION: No acute cardiopulmonary abnormality.) Prescription Management I considered prescription management with: Antibiotic Discharge Plan Discharge Clinical Impression: Axillary lymphadenopathy Patient Disposition: Home, Self-Care Additional Instructions: As I have discussed with the you the workup included chest x-ray, blood work to make sure you do not have any underlying lung masses or infection, or any abnormal blood conditions, your blood work chest x-ray, EKG has been reassuring, you just finished a course of steroids with some improvement in your symptoms, I did add an inflammatory marker that was completely unremarkable just tells me that there is no underlying infection or systemic inflammation, I would recommend taking ibuprofen versus Tylenol for this type of discomfort, warm compresses to the area, follow up with the PCP, I think that you may need mammogram again or some other evaluation on outpatient basis you have had CAT scan of the lungs and ultrasound of the neck and CAT scan of the neck with a in the past year and a half and blood work as well all of which has been reassuring. And I do believe you need to follow up with the ENT as it has been recommended for you with general surgery to evaluate for your chronic cough after intubation. Prescriptions: No Action alcohol swabs [Alcohol Pads] Pads, Medicated See Rx Instructions topical .TID Qty: 200 0RF Rx Instructions: TID tesing topically TID; (DME) blood-glucose meter [FreeStyle Lite Meter] Kit See Rx Instructions .Route Qty: 1 0RF Rx Instructions: TID testing (DME) FreeStyle Lite Strips Strip See Rx Instructions .Route Qty: 300 1RF Rx Instructions: TID testing (DME) lancets [FreeStyle Lancets] 28 gauge misc See Rx Instructions .Route Qty: 300 1RF Rx Instructions: TID testing (DME) FreeStyle Brinda 3 Sensor Device See Rx Instructions .Route Qty: 6 1RF Rx Instructions: 2x a month pantoprazole 20 mg tablet,delayed release (DR/EC) 20 mg PO DAILY Qty: 90 0RF betamethasone dipropionate 0.05 % ointment 1 appl topical BID Qty: 15 0RF Rx Instructions: Thin coat 2 times per day omega-3 acid ethyl esters 1 gram capsule 2 cap PO BID 90 Days Qty: 360 1RF buspirone 10 mg tablet 10 mg PO DAILY 90 Days Qty: 90 1RF losartan 25 mg tablet 25 mg PO DAILY 90 Days Qty: 90 1RF atorvastatin 20 mg tablet 20 mg PO DAILY 90 Days Qty: 90 1RF amlodipine 10 mg tablet 10 mg PO DAILY 90 Days Qty: 90 1RF pumpkin seed-soy germ-Cissus 300-150 mg Capsule See Rx Instructions .ROUTE .COMPLEX Rx Instructions: as directed epinephrine 0.3 mg/0.3 mL auto-injector 0.3 ml IM DIRECTED Qty: 2 0RF lidocaine 4 % adhesive patch,medicated 1 patch topical DAILY PRN (Reason: pain) Qty: 10 4RF cetirizine 10 mg tablet 10 mg PO DAILY fluticasone propionate 50 mcg/actuation spray,suspension 1 spray intranasal BID amitriptyline 25 mg tablet 25 mg PO DAILY finasteride 5 mg tablet 5 mg PO .COMPLEX Qty: 90 1RF Rx Instructions: 5 mg orally Saturday, Saturday, Saturday schedule; Print Language: Malian
--- OUTSIDE RECORDS SUMMARY | 2025-07-19 07:51 | XMS_ITS | Patient Health Record ---
Author Organization [facility] Address [address] [place] [address] Care Team Providers Care Water Taxi Captain Name Role Phone ANASTASIA TOLEDO Primary Care [...] Blood Reviewed date:11/20/2024 11:15:37 PM Interpretation: Performing Lab:[facility], [address] [place] [id number] Notes/Report: Glucose, Whole Blood 146 60-115 mg/dL METER # : [id number] Pathology Reviewed date:11/26/2024 02:42:15 PM Interpretation: Performing Lab:[facility], [address] [place] [phone] Notes/Report: Reason For Referral No Information Medications [...] IN 30-60 MINUTES Oral for 15 Active [id number] Ethyl Esters 1 GM TAKE 2 CAPSULES [...] Problem Status W/U Status Risk Notes Problem 161636320 Colon cancer screening (Z12.11) Active confirmed Problem 686315524 Personal history of colonic polyps (Z86.010) Active confirmed Problem 56145114 Encounter for other preprocedural examination (Z01.818) Active confirmed Problem Dysphagia (59944920) Dysphagia (R13.10) Active confirmed Problem 061843035 Family history o f colon cancer (Z80.0) Active confirmed Problem 40415707 Dysphagia, unspecified type (R13.10) Active confirmed Problem Gastroesophageal reflux disease (227445864) Esophageal reflux disease (K21.9) Active confirmed Problem 119214627 Gastroesophageal reflux disease, unspecified whether esophagitis present (K21.9) Active confirmed Vital Signs Temperature 97.8 degrees Fahrenheit 08/27/2024 Blood pressure diastolic 00 mm Hg 08/27/2024 Height 65 in 08/27/2024 Blood pressure systolic 000 mm Hg 08/27/2024 Weight 165 lb 2 oz lbs 08/27/2024 BMI 27.48 kg/m2 08/27/2024 Encounters Encounter Location Date Provider Diagnosis [facility] Out[facility] [address] [place] [id number] 11/20/2024 Austin Balderas Jr Dysphagia R13.10 ; Esophageal reflux disease K21.9 and Abnormal UGI series R93.3 [facility] [address] [place] [phone] 08/27/2024 Austin Balderas Jr Gastroesophageal reflux disease, unspecified whether esophagitis present K21.9 [facility] [address] [place] [phone] 07/28/2024 Austin Balderas Jr [facility] [address] [place] [phone] 11/09/2024 Austin Balderas Jr [facility] [address] [place] [phone] 11/26/2024 Austin Balderas Jr [facility] [address] [phone] 12/03/2024 Austin Balderas Jr Assessments Encounter Date [...] Insured Coverage Start Date Coverage End Date [facility] [address] [place] [phone] [id number] BOB ADAMS Self - patient is the [...]
[2025-07-19 09:25] LABS: MANUAL DIFF FLAG NO
[2025-07-19 09:27] LABS: Hematocrit 40.9 % (42.0-52.0); Hemoglobin 12.9 g/dl (14.0-18.0); Imm Gran Abs Auto 0.02 X10*3/uL (0.00-0.03); Imm Gran Pct Auto 0.4 % (0.0-0.4); Lymphocytes Absolute Auto 2.3 X10*3/uL (1.2-4.9); Mean Corpuscular HGB Conc 31.5 g/dl (31.0-36.0); Mean Corpuscular Hemoglobin 25.4 pg (27.0-33.0); Mean Corpuscular Volume 80.5 fL (80.0-98.0); NRBC Abs Auto 0.000 X10*3/uL (0.0-0.012); NRBC Pct Auto 0.0 /100WBC (0.0-0.2); Platelet Count 308 X10*3/uL (160-400); Red Blood Count 5.08 X10*6/uL (4.60-5.80); White Blood Count 5.4 X10*3/uL (4.8-10.8)
[2025-07-19 09:33] VITALS: BP 135/91; PULSE 53; RESP 16; O2SAT 97
[2025-07-19 09:40] LABS: Anion Gap 11 (12-20); Blood Urea Nitrogen 22 mg/dL (9-16); Calcium 8.5 mg/dL (8.4-10.2); Carbon Dioxide 24 mmol/L (22-29); Chloride 112 mmol/L (96-108); Creatinine Clr Calc Pharmacy 90.5; Estimated Glomerular Filt Rate > 60; Potassium 4.1 mmol/L (3.3-5.1); Sodium 143 mmol/L (135-145)
[2025-07-19 10:02] VITALS: BP 135/91; PULSE 53; RESP 16; TEMP 36.8; O2SAT 97
== END 2025-07-19 10:02 | disposition home or self-care (01) ==
PROVIDERS: Emergency Provider Emergency Medicine; PCP Nurse Practitioner Family
DX: R59.0 Localized enlarged lymph nodes (principal); R07.89 Other chest pain; Z79.899 Other long term (current) drug therapy
CPT/HCPCS: 36415; 71046; 80048; 85025; 86140; 93005; 99283; 99284

== ENCOUNTER → 2025-07-19 07:23 | Outpatient (BNV) | payer OTHER, SELFPAY | PROVIDERS: Emergency Provider Emergency Medicine; PCP Nurse Practitioner Family; Visit Provider Internal Medicine | DX: R00.1 Bradycardia, unspecified (principal) | CPT/HCPCS: 93010 ==

== ENCOUNTER → 2025-07-19 08:17 | Outpatient (BNV) | payer OTHER, SELFPAY | PROVIDERS: Emergency Provider Emergency Medicine; PCP Nurse Practitioner Family; Visit Provider Radiology Diagnostic Radiology | DX: R07.89 Other chest pain (principal) | CPT/HCPCS: 71046 ==